=== PATIENT | female | born 1935 | race Caucasian/White ===

== ENCOUNTER 2019-11-21 09:52 | Outpatient (REF) | payer MEDICARE, SELFPAY ==
--- NOTE | 2019-11-21 10:15 | MR_ITS ---
MRI OF THE BRAIN WITHOUT IV CONTRAST INDICATION: Amnesia. COMPARISON: None available. TECHNIQUE: Multiplanar multisequence MR imaging of the brain was obtained without IV contrast. FINDINGS: There is no hydrocephalus, extra-axial surface collection, or herniation. 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 The major flow voids at the skull base are preserved. There is a 5 mm nodular possible flow void associated with the right anterior communicating artery on image 12 of series 8 for which a MRA of the head is recommended to exclude an aneurysm. There is no acute infarct on diffusion-weighted imaging. There is no intracranial hemorrhage on the gradient recalled echo acquisition. The midline structures are normal. The cerebellar tonsils are normally positioned. The cerebellum and brainstem are normal. The craniocervical junction is normal. Osseous marrow signal intensity is homogenous. The visualized soft tissues are unremarkable. There is mild mucosal thickening throughout the paranasal sinuses. IMPRESSION: - There is a 5 mm nodular possible flow void associated with the right anterior communicating artery on image 12 of series 8 for which a MRA of the head is recommended to exclude an aneurysm. - There is global cerebral volume loss and there is moderate chronic microangiopathy.
== END 2019-11-21 09:53 | disposition home or self-care (01) ==
LOC: HO.MRI 09:52
PROVIDERS: Visit Provider Psychiatry & Neurology Neurology
DX: R41.3 Other amnesia (principal); I10 Essential (primary) hypertension; I48.0 Paroxysmal atrial fibrillation; I49.5 Sick sinus syndrome; Z95.0 Presence of cardiac pacemaker; Z79.899 Other long term (current) drug therapy
CPT/HCPCS: 70551; 99214

== ENCOUNTER → 2020-02-20 09:10 | Outpatient (BNVA) | payer MEDICARE, SELFPAY | PROVIDERS: PCP Internal Medicine; Visit Provider Internal Medicine Cardiovascular Disease | DX: I48.0 Paroxysmal atrial fibrillation (principal); I10 Essential (primary) hypertension; Z45.018 Encounter for adjustment and management of other part of cardiac pacemaker; Z86.79 Personal history of other diseases of the circulatory system; Z79.01 Long term (current) use of anticoagulants; Z79.899 Other long term (current) drug therapy | CPT/HCPCS: 99212 ==

== ENCOUNTER 2020-02-29 08:56 | Outpatient (REF) | payer MEDICARE, SELFPAY ==
--- NOTE | 2020-02-29 09:08 | MM_ITS ---
EXAMINATION: MM SCREENING DIGITAL BREAST TOMOSYNTHESIS, BILATERAL CLINICAL INFORMATION: Screening. Asymptomatic. Right breast cancer post lumpectomy 2004. Family history breast cancer in sister. Due for yearly. COMPARISON: Mammography: 11/30/2018, 09/16/2017, 08/28/2016 TECHNIQUE: Digital breast tomosynthesis is performed in both the craniocaudal and mediolateral oblique views along with computer-aided detection (CAD). Synthesized 2D images are generated from the tomosynthesis. Additional left MLO view is provided. FINDINGS: The breasts are heterogeneously dense, which may obscure small masses (ACR BI-RADS breast composition Category c). There are post therapy changes on the right with some minor scarring and surgical clips. Pacemaker generator overlies and partly obscures left axilla. Neither breast shows interval mass or architectural abnormality or developing density. No suspicious calcifications. No significant changes. MM/MM tomosynthesis screening BI IMPRESSION: No mammographic evidence of malignancy. ASSESSMENT: BI-RADS 2: Benign RECOMMENDATION: Routine annual mammography screening. This patient's information was entered into a reminder system with a target due date for their next mammogram.
--- NOTE | 2020-02-29 09:09 | MM_ITS ---
EXAMINATION: BONE DENSITOMETRY CLINICAL INDICATION: Osteopenia. History of breast cancer. COMPARISON: Previous BD dated 08/28/2016 and baseline BD dated 10/12/2006. TECHNIQUE: Using a OpenSpan DXA System (software version: 13.1) manufactured by [employer], dual-energy x-ray absorptiometry was performed of the lumbar spine and left forearm radius 33%. The images are of good technical quality. Summary results are attached. FINDINGS: AP SPINE L1-L3 (excluding L4): The data of L1-L4 has been changed to exclude the L4 vertebral body, because lumbar curvature with degenerative changes at this level may cause overestimation of lumbar spine density. Current: BMD 1.007 g/cm2, Z-score 0.9, T-score -1.4, osteopenia, 3.9% decrease from previous, 1.5% decrease from baseline (<5% change is not significant). Prior: BMD 1.048 g/cm2. Baseline: BMD 1.022 g/cm2. LEFT FOREARM RADIUS 33%: BMD 0.697 g/cm2, Z-score 1.1, T-score -2.0, osteopenia. Prior: not previously measured. IDENTIFIED RISK FACTORS: Menopause, height loss, hysterectomy, osteoporosis, secondary osteoporosis. HISTORY OF FRACTURE: None listed. MEDICATIONS: Vitamin D. MM/XR DEXA axial skeleton IMPRESSION: 1. DIAGNOSIS: Osteopenia based on the lowest T-score value of -2.0 in the forearm radius 33% applying World Health Organization criteria. 2. 10-YEAR FRACTURE RISK PREDICTION, FRAX: Not performed in this patient without a femoral neck BMD measurement. 3. Treatment Recommendations: NOF guidelines recommend consideration for treatment in postmenopausal women and men age 50 and older presenting with the following: -A hip or vertebral (clinical or morphometric) fracture. -T-score less than or equal to -2.5 at the femoral neck or spine after appropriate evaluation to exclude secondary causes. -Low bone mass at the hip or spine and a 10-year fracture probability by FRAX of greater than or equal to 3% for hip fracture or greater than or equal to 20% for major osteoporotic fracture based on the [place] adapted WHO algorithm. 4. Other Recommendations: All treatment decisions require clinical judgment and consideration of individual patient factors, including patient preferences, comorbidities, previous drug use, risk factors not captured in the FRAX model (e.g. frailty, falls, vitamin D deficiency, increased bone turnover, interval significant decline in bone density) and possible under or overestimation of fracture risk by FRAX. Additional medical evaluation for secondary cause of low bone mineral density may be appropriate. FUTURE SCAN RECOMMENDATION: People with diagnosed cases of osteoporosis or at high risk for fracture should have regular bone mineral density tests. For patients eligible for Medicare, routine testing is allowed once every 2 years. The testing frequency can be increased to one year for patients who have rapidly progressing disease, those who are receiving or discontinuing medical therapy to restore bone mass, or have additional risk factors.
== END 2020-02-29 08:57 | disposition home or self-care (01) ==
LOC: HO.MAMMO 08:56
PROVIDERS: PCP Internal Medicine; Visit Provider Internal Medicine Medical Oncology
DX: Z12.31 Encounter for screening mammogram for malignant neoplasm of breast (principal); Z13.820 Encounter for screening for osteoporosis; M85.832 Other specified disorders of bone density and structure, left forearm; Z85.3 Personal history of malignant neoplasm of breast; Z80.3 Family history of malignant neoplasm of breast
CPT/HCPCS: 77063; 77067; 77080

== ENCOUNTER 2020-06-06 15:52 | Emergency (ER) | payer MEDICARE, SELFPAY ==
--- NOTE | ~2020-06-06 | CT_ITS ---
EXAMINATION: CT HEAD WITHOUT CONTRAST CT FACIAL BONES WITHOUT CONTRAST CT CERVICAL SPINE WITHOUT CONTRAST CLINICAL INFORMATION: Fall. COMPARISON: None available. TECHNIQUE: Imaging was performed from the skull base to vertex without intravenous administration of contrast. In addition, helical noncontrast CT imaging was acquired through the cervical spine and facial bones and source images were reviewed along with axial reconstructions and sagittal and coronal MPRs. This CT examination was performed using dose optimization techniques as appropriate, variously including the following: *Automated exposure control. *Adjustment of mA and/or kV according to patient size (this includes techniques or standardized protocols for targeted exams where dose is matched to indication/reason for exam; i.e. extremities or head). *Use of iterative reconstruction technique. DLP: 1110 mGy-cm FINDINGS: Head: There is no evidence of acute intracranial hemorrhage or edematous territorial infarction. Scattered hypoattenuation in the periventricular and deep white matter are consistent with moderate microangiopathy. Troncoso-white matter differentiation is preserved. Proportional prominence of the ventricles and sulcal spaces. No evidence for obstructive hydrocephalus. No abnormal mass effect or midline shift. No extra-axial fluid collections. Calcific atherosclerotic disease of the intracranial internal carotid and vertebral arteries. No hyperdense vessel sign. There appears to be a 0.5 cm outpouching arising from the superior margin of the right carotid terminus suggestive of a small aneurysm. There is also a nodular focus along the anterior communicating artery as previously demonstrated on brain MRI which may represent additional aneurysm. No acute soft tissue or osseous abnormalities. The mastoid air cells and middle ear cavities are clear. Maxillofacial Bones: No evidence of maxillofacial bone fractures. The zygomatic arches remain intact. No nasal bone fracture. Leftward nasal septal deviation. No evidence of mandibular or maxillary fracture. The mandibular condyles remain well-seated in their respective temporal articular grooves. Normal appearance of the intraconal and extraconal fat. No evidence of traumatic injury to the extraocular musculature or globes. Bilateral lens extractions. Mild to moderate mucosal thickening of the paranasal sinuses. No layering fluid collections. Cervical Spine: The atlantooccipital and atlantoaxial articulations remain well aligned. Mild degenerative anterolisthesis of C3 on C4. Otherwise, there is anatomic alignment of the vertebral bodies and posterior elements. No evidence of acute fracture or subluxation. Congenital nonunion of the posterior arch of C1. The vertebral body heights are maintained. Moderate to advanced degenerative disc disease at from C3-C6 with disc-osteophyte complex formation. Facet and uncovertebral joint arthropathy leads osseous encroachment on the neural foramina from C3-C7. There is no prevertebral soft tissue swelling. The thyroid gland and remaining cervical soft tissues are normal in appearance. The lung apices demonstrate no abnormalities. Left pectoral pacemaker. CT/CT cervical spine wo con IMPRESSION: 1. No evidence of acute intracranial hemorrhage or edematous territorial infarction. Moderate underlying microangiopathy. 2. No evidence of acute fracture or traumatic subluxation of the cervical spine. Moderate multilevel degenerative spinal arthropathy of the cervical spine. 3. No evidence of acute traumatic injury to the maxillofacial bones. 4. 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 These may be better characterized with MRA or CTA.
--- NOTE | ~2020-06-06 | XR_ITS ---
EXAMINATION: XR FOOT, LEFT CLINICAL INFORMATION: Fall with great toe pain COMPARISON: None TECHNIQUE: AP, lateral, and oblique views of the left foot. FINDINGS: Bones are normal anatomic alignment. I do not appreciate any definitive acute fracture or dislocation. Mild degenerative changes are noted but no acute bony destructive lesions or periosteal reaction. Tiny well-corticated ossification inferior to the first proximal phalanx less likely to be an acute finding. XR/XR foot LT 2V IMPRESSION: Degenerative changes but no acute fracture or dislocation appreciated.
[2020-06-06 16:33] VITALS: BP 175/81; PULSE 60; RESP 18; TEMP 36.7; O2SAT 94; BMI 19.9
--- NOTE | 2020-06-06 18:19 | ED_ITS ---
HPI - Fall General Chief Complaint: Fall Stated Complaint: Fall/face injury Time Seen by Provider: 06/06/20 18:19 Source: patient Mode of arrival: ambulatory Limitations: no limitations History of Present Illness HPI Narrative: Patient on Eliquis while trying to get of out of the car tripped and fell landed on the cement floor hitting her nose and upper teeth feel that left upper incisor has moved and chipped with small laceration in the inside of the lip, she had some minor bleeding from the nose which has stopped now no other injuries no loss of consciousness no vomiting no headache MD complaint: fall Related Data Home Medications Medication Instructions Recorded Confirmed conjugated estrogens 0.625 mg/gram 0.625 mg VAGINAL DAILY 11/19/19 03/30/20 vaginal cream flaxseed oil 1,000 mg capsule 1,000 mg PO DAILY 11/19/19 03/30/20 omega-3 fatty acids 1,000 mg 1,000 mg PO DAILY 11/19/19 03/30/20 capsule donepezil 10 mg tablet 10 mg PO BEDTIME 03/30/20 03/30/20 Previous Rx's Medication Instructions Recorded escitalopram oxalate 10 mg tablet 10 mg PO DAILY #60 tab 12/16/19 apixaban 2.5 mg tablet 2.5 mg PO BID 90 Days #180 tab 01/03/20 hydrochlorothiazide 25 mg tablet 25 mg PO DAILY #90 tab 01/05/20 metoprolol succinate 50 mg 50 mg PO DAILY #90 tab 04/19/20 tablet,extended release 24 hr Allergies Allergy/AdvReac Type Severity Reaction Status Date / Time No Known Allergies Allergy Verified 03/30/20 10:17 [No Known Allergies*] Review of Systems Review of Systems: Constitutional : No Weight loss, No Fever, No Chills ENT/Mouth : No sore throat, No Rhinorrhea Eyes: No Eye Pain, No Swelling Cardiovascular : No Chest Pain, no palpitations Respiratory : No Cough, No Sputum, no shortness of breath Gastrointestinal : no Nausea, No Vomiting, No Diarrhea, No abdominal Pain, no black stools Genitourinary : No Dysuria, No Urinary Frequency Musculoskeletal : No joint pain, No Myalgias, No Joint Swelling Skin : No Skin Lesions, No rash Neuro : No Weakness, No Numbness, No Dizziness, No Headache Psych : No Anxiety/Panic, No Depression Heme/Lymph: No Bruising, No Lymphadenopathy Endocrine : No Polyuria, No Polydipsia All other systems reviewed and are negative FOR[facility] Past Medical History Medical History Anxiety Basal cell carcinoma of right forearm (~2004) Breast cancer, right breast Cardiac pacemaker in situ Essential hypertension, benign Forgetfulness HTN (hypertension) Impaired fasting glucose Insufficiency fracture of right femur Memory impairment Obturator hernia with gangrene Osteoarthritis of left hip Paroxysmal atrial fibrillation Paroxysmal atrial fibrillation Pure hypercholesterolemia Sick sinus syndrome Sinus pause Squamous cell carcinoma of left lower leg (~02/2017) Vitamin D deficiency Surgical History History of hip surgery (~06/2013) History of lumpectomy of right breast (~08/2003) History of permanent cardiac pacemaker placement Hx of basal cell carcinoma excision (~2004) Hx of colonoscopy Hx of excision of mass Hx of hernia repair Hx of squamous cell carcinoma excision (~02/2017) Status post hip surgery (~05/14/16) Status post placement of cardiac pacemaker (~10/08/19) Family History Family History Father No problems noted. Mother CVD (cardiovascular disease) CHF (congestive heart failure) Hypertension Brother Bone cancer Diabetes Social History Social History Alcohol intake: current Alcohol intake frequency: does not drink Alcohol type: wine Smoking Status: Never smoker Use of substances other than those prescribed or required for medical reasons: No Advance Directives: No Advance Directives Information Provided: Yes Physical Exam Vital Signs: Vital Signs: Last Vital Signs Temp 97.7 F 06/06/20 21:11 Pulse 61 06/06/20 21:11 Resp 18 06/06/20 21:11 BP 179/80 H 06/06/20 21:11 Pulse Ox 95 06/06/20 21:11 Body Mass Index 19.9 Const: General: comfortable, no acute distress, well developed, alert and awake Orientation/consciousness: patient oriented x3 HENMT: Head: Yes normocephalic Head images: 1. Superficial abrasion with swelling involving the nose and upper lip superficial laceration inside of the upper lip Ears: hearing grossly normal bilaterally Nose image: 1. Superficial abrasion Mouth/tongue images: 1. Upper lateral incisor chipped moved forward and downward Eyes: General: appearance normal, both eyes and all related structures Neck: Neck: Yes normal visual inspection, Yes full ROM, Yes no lymphadenopathy and No midline deformity Chest: Chest palpation & inspection: normal inspection of the chest and normal palpation of entire chest wall Resp: Effort & Inspection: normal respiratory effort Auscultation: clear to auscultation bilaterally, no crackles, no rales, no rhonchi and no wheezes Cardio: Palpation: normal PMI Rate: regular rate Rhythm: regular rhythm Heart sounds: S1 normal heart sound present and S2 normal heart sound present Peripheral pulses: Peripheral pulses 2+ throughout GI: Inspection: Yes normal to inspection Palpation (GI): Soft to palpation, not firm and nontender Back/Spine/Pelvis: Cervical Spine: cervical ROM normal Thoracic/Lumbar Spine: No thoracic spinal tenderness and No lumbar spinal tenderness Neuro: General: patient oriented x3 and no focal motor deficits Extrem: General: Yes normal to inspection and Yes full ROM Hand/finger images: 1. Superficial abrasion MDM - Fall MDM Narrative Medical decision making narrative: Patient status post mechanical fall CT scan of the face head C-spine negative x-ray of left foot is negative for any fracture patient advised to follow-up with dentist for slight tooth pain avulsion Discharge Plan Discharge Clinical Impression: Head injury, closed Qualifiers: Encounter type: initial encounter Qualified Code(s): S09.90XA - Unspecified injury of head, initial encounter Contusion of face Qualifiers: Encounter type: initial encounter Qualified Code(s): S00.83XA - Contusion of other part of head, initial encounter Patient Disposition: Home, Self-Care Instructions: Facial Contusion (ED) Additional Instructions: Apply ice pack. Tylenol for pain. Follow-up with dentist for injury off the upper tooth Prescriptions: No Action escitalopram oxalate 10 mg tablet 10 mg PO DAILY Qty: 60 RF: 4 apixaban 2.5 mg tablet 2.5 mg PO BID 90 Days Qty: 180 RF: 3 hydrochlorothiazide 25 mg tablet 25 mg PO DAILY Qty: 90 RF: 1 metoprolol succinate 50 mg tablet extended release 24 hr 50 mg PO DAILY Qty: 90 RF: 3 donepezil 10 mg tablet 10 mg PO BEDTIME RF: 0 Premarin 0.625 mg/gram cream 0.625 mg vaginal DAILY RF: 0 flaxseed oil 1,000 mg capsule 1,000 mg PO DAILY RF: 0 omega-3 fatty acids [Fish Oil Concentrate] 1,000 mg capsule 1,000 mg PO DAILY RF: 0
[2020-06-06 18:27] VITALS: BP 206/83; PULSE 60; RESP 18; TEMP 36.8; O2SAT 98
[2020-06-06] MEDS: oxyCODONE HCl Immed Release 5 MG TABLET PO (19:25)
[2020-06-06 20:00] VITALS: BP 217/89; PULSE 88; RESP 18; O2SAT 98
[2020-06-06 21:11] VITALS: BP 179/80; PULSE 61; RESP 18; TEMP 36.5; O2SAT 95
== END 2020-06-06 20:30 | disposition home or self-care (01) ==
PROVIDERS: Emergency Provider Internal Medicine; PCP Internal Medicine
DX: S00.83XA Contusion of other part of head, initial encounter (principal); M79.672 Pain in left foot; M54.2 Cervicalgia; G44.309 Post-traumatic headache, unspecified, not intractable; W01.0XXA Fall on same level from slipping, tripping and stumbling without subsequent striking against object, initial encounter; Y93.9 Activity, unspecified; Y92.9 Unspecified place or not applicable; Y99.9 Unspecified external cause status; Z79.899 Other long term (current) drug therapy
CPT/HCPCS: 70450; 70486; 72125; 73620; 99285

== ENCOUNTER → 2020-08-16 08:03 | Outpatient (REF) | payer MEDICARE, SELFPAY ==
--- NOTE | ~2020-08-16 | NM_ITS ---
Myocardial perfusion study Indication: Paroxysmal atrial fibrillation with ventricles echocardiogram to evaluate for myocardial ischemia Technique: The patient was brought in for a Lexiscan perfusion study on 08/16/2020. Patient performed low-level exercise and was injected 0.4 mg of Lexiscan intravenously. Within a minute of injection, 25 mCi of sestamibi was given intravenously. Images were obtained using the SPECT gamma camera interlaced with the gating device. Images were obtained in supine position. Resting perfusion study was performed on 08/21/2020. Patient was administered 25 mCi of sestamibi intravenously at rest. Images were then obtained in supine position. Images obtained with and without CT attenuation. Total DLP 72 mGy-cm. Images were processed with the software and compared side to side in short axis, horizontal long axis and vertical long axis views. Findings: The stress perfusion study showed nonattenuated images show normal uptake of radiotracer in all segments of LV myocardium. Attenuation corrected images show mildly reduced uptake in the apex of the LV myocardium. The gated study shows normal LV systolic function with calculated LVEF of 69%. LV cavity is normal in size. The gated study shows normal systolic wall thickening and contraction of segments. Resting study shows nonattenuated images show minimally reduced uptake in the inferior wall of the LV myocardium. Attenuation corrected images show mildly reduced uptake in the apex of the LV myocardium.. Gating at rest reveals normal systolic wall motion with ejection fraction at greater than 70 %. The findings are consistent with normal myocardial perfusion. NM/NM joseline perf SPECT rest & str Impression: 1. Myocardial perfusion imaging study shows normal myocardial perfusion 2. Gated LVEF is 69% 3. Transient ischemic dilatation not present EKG is nondiagnostic for ischemia
--- NOTE | 2020-08-16 11:34 | CA_ITS ---
Acquisition Time: 2020-08-16 09:49:53 Total Exercise Time: 00:02:00 Test Indications: Abnormal ECG Medications: ELIQUIS ESCITALOPRAM HCTZ METOPROLOL Protocol: LEXISCAN Max HR: 134 BPM 99% of Pred: 135 BPM Max BP: 124/078 mmHG Max Work Load: 1.0 METS Pharmacological stress test with Lexiscan injection, while laying supine, without anginal symptoms, with isolated V paced beats, with normotensive response to injection, with nondiagnostic EKG for ischemia. In recovery she was given Aminophylline 75mg IVP to reverse Lexiscan. Nuclear images pending. Test reviewed with Dr Lay. Referred By: Uzma Hoyos Overread By: UZMA HOYOS
--- NOTE | 2020-08-16 11:46 | CA_ITS ---
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 Normal LV systolic function 2. Mildly dilated left atrium 3. Moderate mitral and calcification with normal cardiac valvular Doppler 4. Normal RV systolic pressure 5. No pericardial effusion Findings Left Ventricle Normal left ventricular size, thickness, and systolic function. The visually estimated ejection fraction is between 60-65%. Diastolic function is indeterminate on the basis of available data. Right Ventricle Normal right ventricular cavity size and systolic function. Atria The left atrium is mildly dilated. There is lipomatous hypertrophy of the interatrial septum. There is no evidence of interatrial shunt. The right atrium is normal in size. Aortic Valve Normal aortic valve structure and function. There is no aortic valve stenosis. There is no aortic valve regurgitation. Mitral Valve There is mild anterior mitral leaflet thickening. There is moderate mitral annular calcification. There is trace mitral valve regurgitation. There is no mitral valve stenosis. Pulmonic Valve The pulmonic valve was not well visualized. Tricuspid Valve Likely normal tricuspid valve structure and function. There is trace tricuspid valve regurgitation. The right ventricular systolic pressure is normal. The right ventricular systolic pressure is 30 mmHg. Normal right atrial pressure. There is no evidence of pulmonary hypertension. Great Vessels All visible segments of the aorta are normal in size. Venous The inferior vena cava is normal in size and collapses greater than 50% with inspiration. Pericardium/Pleural There is no evidence of pericardial effusion. Prior Study Comparison No significant change compared to prior study. Measurements 2D Linear Measurements IVSd: 0.97 0.6-0.9/0.6-1.0 cm LVIDd: 3.44 3.9-5.3/4.2-5.9 cm LVIDd Index: 2.21 2.4-3.2/2.2-3.1 cm/m2 LVIDs: 2.13 2.0-3.6 cm LVPWd: 0.92 0.7-1.1 cm Ao Root: 3.20 2.1-3.5 cm LA Diam: 3.90 2.7-3.8/3.0-4.0 cm LAIDs Index: 2.50 1.5-2.3 cm/m2 LV Mass: 115.50 67-162/88-224 g LV Mass Index: 74.04 43-95/49-115 g/m2 LVOT Diam: 2.00 3.0+(-)1.3 cm Aortic Valve AoV Pk Rony: 1.00 AoV Mn Rony: 0.77 AoV VTI: 0.20 AoV Pk Grad: 4.00 Aov Mn Grad: 3.00 JOHNNIE Cont.VTI: 2.68 LVOT LVOT Pk Rony: 0.83 LVOT Mn Rony: 0.58 LVOT VTI: 0.17 LVOT Pk Grad: 3.00 LVOT Mn Grad: 2.00 LVOT Diam: 2.00 LVOT Area: 3.14 Tricuspid Valve TR Pk Rony: 2.32 TR Pk Grad: 22.00 RA Press: 8.00 RVSP: 30.00 Great Vessels Aorta Ao Root-2D: 3.20 2.0-3.7 cm Ao Asc: 3.20 2.1-3.4 cm Ao Arch: 2.10 Updated in Other Vendor System with Status of Final Caesar Lay MD electronically signed on 08/17/2020 2:48:50 PM with status of Final
== END ==
LOC: HO.CARD 08:03
PROVIDERS: Visit Provider Nurse Practitioner Family
DX: Z01.810 Encounter for preprocedural cardiovascular examination (principal); I47.2 Ventricular tachycardia; I48.0 Paroxysmal atrial fibrillation; R68.89 Other general symptoms and signs
CPT/HCPCS: 78452; 93017; 93306; A9500; J0280; J2785

== ENCOUNTER → 2020-08-30 14:16 | Outpatient (BNVA) | payer MEDICARE, SELFPAY | PROVIDERS: PCP Internal Medicine; Referring Provider Internal Medicine; Visit Provider Internal Medicine Cardiovascular Disease | DX: I48.0 Paroxysmal atrial fibrillation (principal); I47.2 Ventricular tachycardia; Z95.0 Presence of cardiac pacemaker; Z79.899 Other long term (current) drug therapy | CPT/HCPCS: 99212 ==

== ENCOUNTER 2021-01-31 12:11 | Outpatient (REF) | payer MEDICARE, SELFPAY ==
--- NOTE | ~2021-01-31 | XR_ITS ---
EXAMINATION: XR PELVIS CLINICAL INFORMATION: Pain in unspecified hip. COMPARISON: XR pelvis and right hip 07/28/2019. TECHNIQUE: AP and low AP views of the pelvis. FINDINGS: There is a stable-appearing left total hip arthroplasty which appears well-seated in near-anatomic alignment. Severe advanced osteoarthritis of the right hip may have progressed slightly with subtle flattening/collapse of the superolateral weightbearing portion of the right femoral head. There are persistent prominent subchondral degenerative cysts in the superior acetabulum and superolateral right femoral head with surrounding sclerosis and marginal osteophytes. XR/XR pelvis 1-2V IMPRESSION: Stable-appearing left total hip arthroplasty. Slight worsening severe advanced osteoarthritis of the right hip.
== END 2021-01-31 12:12 | disposition home or self-care (01) ==
LOC: HO.HOSX 12:11
PROVIDERS: Visit Provider Orthopaedic Surgery
DX: M25.551 Pain in right hip (principal); M87.9 Osteonecrosis, unspecified; R73.01 Impaired fasting glucose; R41.3 Other amnesia; Z96.642 Presence of left artificial hip joint; Z95.0 Presence of cardiac pacemaker
CPT/HCPCS: 72170; 99212

== ENCOUNTER → 2021-02-26 09:31 | Outpatient (BNVA) | payer MEDICARE, SELFPAY | PROVIDERS: PCP Internal Medicine; Referring Provider Internal Medicine; Visit Provider Internal Medicine Cardiovascular Disease | DX: Z45.018 Encounter for adjustment and management of other part of cardiac pacemaker (principal); I48.0 Paroxysmal atrial fibrillation | CPT/HCPCS: 93005; 99212 ==

== ENCOUNTER 2021-02-26 10:38 | Outpatient (REF) | payer MEDICARE, SELFPAY ==
[2021-02-26 11:11] LABS: MANUAL DIFF FLAG NO
[2021-02-26 11:31] LABS: Basophils Percent Auto 0.4 % (0-2); Eosinophils Absolute Auto 0.1 X10*3/uL (0.0-0.4); Eosinophils Percent Auto 0.7 % (0-4); Hematocrit 41.1 % (37.0-47.0); Hemoglobin 13.7 g/dl (12.0-16.0); Imm Gran Abs Auto 0.02 X10*3/uL (0.00-0.03); Imm Gran Pct Auto 0.3 % (0.0-0.4); Lymphocytes Absolute Auto 0.9 X10*3/uL (1.2-4.9); Lymphocytes Percent Auto 11.6 % (20-40); Mean Corpuscular HGB Conc 33.3 g/dl (31.0-35.0); Mean Corpuscular Hemoglobin 35.6 pg (27.0-33.0); Mean Corpuscular Volume 106.8 fL (80.0-98.0); Mean Platelet Volume 10.3 fL (9.4-12.3); Monocytes Absolute Auto 0.6 X10*3/uL (0.1-1.2); Monocytes Percent Auto 8.2 % (2-11); Neutrophils Absolute Auto 5.8 x10*3/uL (2.0-8.3); Neutrophils Percent Auto 78.8 % (45-73); Platelet Count 220 X10*3/uL (160-400); Red Blood Count 3.85 X10*6/uL (4.20-5.50); Red Cell Distribution Width 12.2 % (11.0-16.0); White Blood Count 7.4 X10*3/uL (4.8-10.8)
[2021-02-26 11:33] LABS: Appearance Urine CLEAR; Color Urine YELLOW; Glucose Urine UA NEG (NEG); Leukocyte Esterase Urine 1+ (NEG); Nitrite Urine POS (NEG); Specific Gravity - Urine 1.025 (1.005-1.025); UACC Culture Trigger YES; Urine Blood TRACE (NEG); Urine Ketones 5 MG/DL (NEG); Urine Protein 1+ MG/DL (NEG-TRACE)
[2021-02-26 11:38] LABS: Estimated Average Glucose 114 mg/dL; Hemoglobin A1c % 5.6 %
[2021-02-26 11:48] LABS: Bacteria Urine 2+ /LPF; Mucus Urine 2+ /LPF; RBC Urine 0 /HPF (0); Squamous Epithelial Cell Urine 2+ /LPF; WBC Urine 50-75 /HPF (0-4)
[2021-02-26 12:02] LABS: Alanine Aminotransferase 21 U/L (0-31); Albumin Level 3.8 g/dL (3.5-5.0); Alkaline Phosphatase 108 U/L (39-117); Anion Gap 11 (12-20); Aspartate Amino Transferase 31 U/L (5-31); Bilirubin Total 1.2 mg/dL (0.0-1.0); Blood Urea Nitrogen 19 mg/dL (9-16); Carbon Dioxide 30 mmol/L (22-29); Chloride 101 mmol/L (96-108); Cholesterol 209 mg/dL; Estimated Glomerular Filt Rate 56; Glucose Fasting 110 mg/dL (60-99); HDL Cholesterol 86 mg/dL; LDL Cholesterol Calculated 98 mg/dl; Potassium 3.6 mmol/L (3.3-5.1); Sodium 138 mmol/L (135-145); Total Protein 6.8 g/dL (6.5-8.0); Triglycerides 127 mg/dL
[2021-02-26 12:24] LABS: Vitamin D 25-OH Total 33.6 ng/mL (>30)
== END 2021-02-26 10:39 | disposition home or self-care (01) ==
LOC: HO.LAB 10:38
PROVIDERS: PCP Internal Medicine; Visit Provider Internal Medicine Cardiovascular Disease
DX: E78.00 Pure hypercholesterolemia, unspecified (principal); E55.9 Vitamin D deficiency, unspecified; I10 Essential (primary) hypertension; I48.0 Paroxysmal atrial fibrillation; R73.01 Impaired fasting glucose
CPT/HCPCS: 36415; 80048; 80053; 80061; 81001; 82306; 83036; 84443; 85025; 87086; 87088; 87186

== ENCOUNTER 2021-03-17 15:20 | Emergency (ER) | payer MEDICARE, SELFPAY ==
[2021-03-17 15:50] VITALS: BP 166/77; PULSE 61; RESP 18; TEMP 36.7; O2SAT 96; BMI 21.2
--- NOTE | 2021-03-17 17:17 | ED_ITS ---
HPI - Eye Problem General Chief complaint: Eye Problems Stated complaint: not able to open eye Time Seen by Provider: 03/17/21 17:14 Source: patient and family Mode of arrival: ambulatory Limitations: no limitations History of Present Illness HPI Narrative: Patient is status post cataract surgery in 05/06 was doing fine since yesterday noticed blurred vision had difficulty in opening her eyes feel burning in the eye no discharge from the eye no injury Related Data Home Medications Medication Instructions Recorded Confirmed flaxseed oil 1,000 mg capsule 1,000 mg PO DAILY 11/19/19 02/26/21 omega-3 fatty acids 1,000 mg 1,000 mg PO DAILY 11/19/19 02/26/21 capsule (Fish Oil Concentrate) cholecalciferol (vitamin D3) 50 50 mcg PO Q2D cap 07/17/20 02/26/21 mcg (2,000 unit) capsule donepezil 10 mg tablet 10 mg PO BEDTIME 08/30/20 02/26/21 escitalopram oxalate 10 mg tablet 10 mg PO DAILY tab 02/26/21 02/26/21 Previous Rx's Medication Instructions Recorded hydrochlorothiazide 25 mg tablet 25 mg PO DAILY 90 Days #90 tab 06/22/20 metoprolol succinate 100 mg 150 mg PO DAILY #135 tab 10/12/20 tablet,extended release 24 hr apixaban 2.5 mg tablet 2.5 mg PO BID 90 Days #180 tab 10/31/20 tobramycin 0.3 % eye drops 2 drp OPHTHALMIC-RIGHT Q4H #5 ml 03/17/21 Allergies Allergy/AdvReac Type Severity Reaction Status Date / Time No Known Allergies Allergy Verified 03/17/21 15:50 [No Known Allergies*] Review of Systems Verdana 4l Review of Systems: Yes all other systems are reviewed and Verdana 4d are negative [facility] Past Medical History Medical History Anxiety Basal cell carcinoma of right forearm (~2004) Breast cancer, right breast Cardiac pacemaker in situ Essential hypertension, benign Forgetfulness HTN (hypertension) Impaired fasting glucose Insufficiency fracture of right femur Memory impairment Nail atrophy Obturator hernia with gangrene Osteoarthritis of left hip Paroxysmal atrial fibrillation Paroxysmal atrial fibrillation Pure hypercholesterolemia Sick sinus syndrome Sinus pause Squamous cell carcinoma of left lower leg (~02/2017) Vitamin D deficiency Surgical History History of hip surgery (~06/2013) History of lumpectomy of right breast (~08/2003) History of permanent cardiac pacemaker placement Hx of basal cell carcinoma excision (~2004) Hx of colonoscopy Hx of excision of mass Hx of hernia repair Hx of squamous cell carcinoma excision (~02/2017) Status post hip surgery (~05/14/16) Status post placement of cardiac pacemaker (~10/08/19) Family History Family History Father No problems noted. Mother CVD (cardiovascular disease) CHF (congestive heart failure) Hypertension Brother Bone cancer Diabetes Social History Social History Housing: House Alcohol intake: current Alcohol intake frequency: does not drink Alcohol type: wine Patient Tobacco Use Status: Never used Tobacco Second Hand Smoke Exposure: Yes Use of substances other than those prescribed or required for medical reasons: No Advance Directives: No Advance Directives Information Provided: No service: No Current occupational status: retired Physical Exam Verdana 4l Vital Signs: Verdana 4d Verdana 4d Vital Signs: Verdana 4d Verdana 4Bd Last Vital Signs Verdana 4d Wide Area Network Administrator New 4d Wide Area Network Administrator New 4d Temp 98.5 F 03/17/21 18:24 Wide Area Network Administrator New 4d Pulse 60 03/17/21 18:24 Wide Area Network Administrator New 4d Resp 16 03/17/21 18:24 BP 178/71 H 03/17/21 18:24 Pulse Ox 94 03/17/21 18:24 BMI result Body Mass Index 21.2 Appearance: Alert. Oriented X3. No acute distress. Eyes: PERRLA, photosensitive EOM ENT: Pharynx normal. Oral Mucosa moist Neck: Normal inspection. Neck supple. CVS: Normal heart rate and rhythm. Pulses normal. Respiratory: No respiratory distress. Equal air entry bilateral, Abdomen: Soft and nontender. Skin: Skin warm and dry. Normal skin color. Normal skin turgor. Extremities: No lower extremity edema. No calf tenderness Neuro: Oriented X 3. No motor deficit. Eyes: Corneas: fluorescein used EOM: EOMs intact bilaterally Direct Ophthalmoscopy: normal light reflex, no papilledema, fundi normal bilaterally and anterior chamber normal Eyes/upper lids images: 1. Corneal abrasion right cornea Discharge Plan Discharge Clinical Impression: Corneal abrasion Patient Disposition: Home, Self-Care Instructions: Corneal Abrasion (ED) Additional Instructions: Local care as advised Tobramycin eye drops 2 drops in right eye every 4 hours while awake until gets better Follow-up with your eye doctor in next 2- 3 days Prescriptions: New tobramycin 0.3 % drops 2 drp ophthalmic-Right Q4H Qty: 5 0RF No Action metoprolol succinate 100 mg tablet extended release 24 hr 150 mg PO DAILY Qty: 135 1RF apixaban 2.5 mg tablet 2.5 mg PO BID 90 Days Qty: 180 3RF cholecalciferol (vitamin D3) 50 mcg (2,000 unit) capsule 50 mcg PO Q2D 0RF donepezil 10 mg tablet 10 mg PO BEDTIME 0RF hydrochlorothiazide 25 mg tablet 25 mg PO DAILY 90 Days Qty: 90 1RF flaxseed oil 1,000 mg capsule 1,000 mg PO DAILY 0RF Rx Instructions: administer with a meal omega-3 fatty acids [Fish Oil Concentrate] 1,000 mg capsule 1,000 mg PO DAILY 0RF escitalopram oxalate 10 mg tablet 10 mg PO DAILY 0RF Interventions: ED Discharge Assessment Last Done: 03/17/21 18:34 Discharge Date/Time: 03/17/21 18:35
[2021-03-17 18:24] VITALS: BP 178/71; PULSE 60; RESP 16; TEMP 36.9; O2SAT 94
[2021-03-17] MEDS: Tobramycin Sulfate 0.3% Sol Op 5 ML BTL 2 DROP EYE-RIGHT (18:26)
== END 2021-03-17 18:35 | disposition home or self-care (01) ==
PROVIDERS: Emergency Provider Internal Medicine; PCP Internal Medicine
DX: S05.01XA Injury of conjunctiva and corneal abrasion without foreign body, right eye, initial encounter (principal); H53.8 Other visual disturbances; X58.XXXA Exposure to other specified factors, initial encounter; Y93.9 Activity, unspecified; Y92.9 Unspecified place or not applicable; Y99.9 Unspecified external cause status; Z79.899 Other long term (current) drug therapy
CPT/HCPCS: 99284

== ENCOUNTER → 2021-03-27 08:57 | Outpatient (BNVA) | payer MEDICARE, SELFPAY | PROVIDERS: Visit Provider Orthopaedic Surgery | DX: Z13.89 Encounter for screening for other disorder (principal) ==

== ENCOUNTER 2021-04-10 | Outpatient (REF) | payer MEDICARE, SELFPAY ==
[2021-04-10 12:18] VITALS: BMI 21.8
[2021-04-10 12:27] VITALS: BP 144/61; PULSE 82; RESP 20; O2SAT 98
--- NOTE | 2021-04-10 12:36 | P.CONAN_ITS ---
HPI - Anesthesia Eval Consult details Narrative: Cx'd by ortho for non healing RLE wound 85yo F for Right Hip Total Replacement Eliquis for afib Pacer in situ Cardiac optimized Pt with mild dementia. Alert and oriented. 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 (Acute) Preoperative examination (Acute) Nail atrophy (Acute) Cardiac pacemaker in situ (Acute) Memory impairment (Acute) Sick sinus syndrome (Acute) Anxiety (Acute) Osteoarthritis of left hip (Acute) Vitamin D deficiency (Acute) Impaired fasting glucose (Acute) Pure hypercholesterolemia (Acute) Essential hypertension, benign (Acute) Paroxysmal atrial fibrillation (Acute) Forgetfulness (Acute) Paroxysmal atrial fibrillation (Acute) Status post placement of cardiac pacemaker (Acute ~10/08/19) Sinus pause (Acute) HTN (hypertension) (Acute) Past Medical History Medical History (Updated 04/11/21 @ 15:51 by Berta Dunn PA-C) Anxiety Basal cell carcinoma of right forearm (~2004) Breast cancer, right breast Cardiac pacemaker in situ COVID-19 vaccine series completed Essential hypertension, benign Forgetfulness [place] (hard of hearing) HTN (hypertension) Impaired fasting glucose Insufficiency fracture of right femur Memory impairment Nail atrophy Obturator hernia with gangrene Osteoarthritis of left hip Paroxysmal atrial fibrillation Paroxysmal atrial fibrillation Pure hypercholesterolemia Sick sinus syndrome Sinus pause Squamous cell carcinoma of left lower leg (~02/2017) Vitamin D deficiency Family History Family History Father No problems noted. Mother CVD (cardiovascular disease) CHF (congestive heart failure) Hypertension Brother Bone cancer Diabetes Family history of problems with anesthesia: No Surgical History Surgical History (Updated 04/10/21 @ 12:12 by Sophia Khan, GABRIELLA) H/O colonoscopy History of hip surgery (~06/2013) History of lumpectomy of right breast (~08/2003) History of permanent cardiac pacemaker placement Hx of basal cell carcinoma excision (~2004) Hx of excision of mass Hx of hernia repair Hx of squamous cell carcinoma excision (~02/2017) Status post hip surgery (~05/14/16) Status post placement of cardiac pacemaker (~10/08/19) History of Problems with Anesthesia: No Social History Social History Housing: House Are you a primary skin care technician to a significant other at home: No Do you presently have visiting nurse or other home services: No Alcohol intake: current Alcohol intake frequency: does not drink Alcohol type: wine Patient Tobacco Use Status: Never used Tobacco Second Hand Smoke Exposure: Yes service: No Current occupational status: retired Narrative Narrative: No recent illness No CP/SOB within limits of pain Meds Allergies Allergy/AdvReac Type Severity Reaction Status Date / Time No Known Allergies Allergy Verified 04/18/21 14:18 [No Known Allergies*] Home Medications Medication Instructions Recorded Confirmed Last Taken Type flaxseed oil 1,000 mg capsule 1,000 mg PO DAILY 11/19/19 04/18/21 Unknown History omega-3 fatty acids 1,000 mg 1,000 mg PO DAILY 11/19/19 04/18/21 Unknown History capsule (Fish Oil Concentrate) cholecalciferol (vitamin D3) 50 50 mcg PO Q2D cap 07/17/20 04/18/21 Unknown History mcg (2,000 unit) capsule donepezil 10 mg tablet 10 mg PO BEDTIME 08/30/20 04/18/21 Unknown History escitalopram oxalate 10 mg tablet 10 mg PO DAILY tab 02/26/21 04/18/21 Unknown History metoprolol succinate 100 mg 50 mg PO BEDTIME 04/10/21 04/18/21 Unknown History tablet,extended release 24 hr metoprolol succinate 100 mg 100 mg PO QAM 04/10/21 04/18/21 Unknown History tablet,extended release 24 hr Exam Exam Date and Time: April 10, 2021 1236 Height,Weight and Vital Signs: Height 5 ft 4 in Weight 57.7 kg Last Vital Signs Pulse 82 04/10/21 12:27 Resp 20 04/10/21 12:27 BP 144/61 H 04/10/21 12:27 Pulse Ox 98 04/10/21 12:27 Narrative Narrative: EKG 02/2021 normal sinus rhythm with bifascicular block with suggestion of LVH Cardiac Device Check 02/2021 Details: Dual-chamber [employer] pacemaker in place.? Programmed in DDDR at 60 beats per minute.? Atrial pacing 87% of the time.? Total burden of atrial fibrillation about 11% time, slightly increased compared to the past.? Atrial and ventricular pacing thresholds are adequate and in our capture mode.? Atrial ventricular sensing is adequate.? Pacing lead impedance is stable.? Battery life is excellent. ECHO 08/2020 Conclusions: - 1. Normal LV systolic function ? 2. Mildly dilated left atrium? 3. Moderate mitral and calcification with normal cardiac valvular Doppler? 4. Normal RV systolic pressure ? 5. No pericardial effusion ?? NM joseline perf SPECT rest & str 08/2020 Impression: ? 1.? Myocardial perfusion imaging study shows normal myocardial perfusion 2.? Gated LVEF is 69% 3. Transient ischemic dilatation not present ? EKG is nondiagnostic for ischemia Airway Mallampati Class: II (Noted black discoloration on tongue. Asymptomatic otherwise.) TM Dist: >3cm Neck ROM: Full Loose/Missing/Broken Teeth: Yes (Some missing, none loose or broken) Heart: Irreg Lungs: CTAB Assessment and Plan Assessment Anesthesia Assessment: Anesthesia Plan Discussed and PAT Visit Final Anesthetic Review Family History of Problems with Anesthesia: No History of Problems with Anesthesia: No
[2021-04-10 13:41] LABS: MANUAL DIFF FLAG NO
[2021-04-10 14:43] LABS: MRSA Nasal PCR NEGATIVE (Negative); SA Nasal PCR NEGATIVE (Negative)
[2021-04-10 14:59] LABS: Basophils Percent Auto 0.5 % (0-2); Eosinophils Absolute Auto 0.1 X10*3/uL (0.0-0.4); Eosinophils Percent Auto 0.8 % (0-4); Hematocrit 42.8 % (37.0-47.0); Hemoglobin 14.2 g/dl (12.0-16.0); Imm Gran Abs Auto 0.02 X10*3/uL (0.00-0.03); Imm Gran Pct Auto 0.3 % (0.0-0.4); Lymphocytes Absolute Auto 1.2 X10*3/uL (1.2-4.9); Lymphocytes Percent Auto 15.6 % (20-40); Mean Corpuscular HGB Conc 33.2 g/dl (31.0-35.0); Mean Corpuscular Hemoglobin 36.1 pg (27.0-33.0); Mean Corpuscular Volume 108.9 fL (80.0-98.0); Mean Platelet Volume 10.9 fL (9.4-12.3); Monocytes Absolute Auto 0.7 X10*3/uL (0.1-1.2); Monocytes Percent Auto 9.7 % (2-11); Neutrophils Absolute Auto 5.5 x10*3/uL (2.0-8.3); Neutrophils Percent Auto 73.1 % (45-73); Platelet Count 262 X10*3/uL (160-400); Red Blood Count 3.93 X10*6/uL (4.20-5.50); Red Cell Distribution Width 12.4 % (11.0-16.0); White Blood Count 7.6 X10*3/uL (4.8-10.8)
[2021-04-10 15:21] LABS: Anion Gap 16 (12-20); Blood Urea Nitrogen 21 mg/dL (9-16); Carbon Dioxide 29 mmol/L (22-29); Chloride 100 mmol/L (96-108); Creatinine Clr Calc Pharmacy 31.6; Estimated Glomerular Filt Rate 47; Potassium 4.1 mmol/L (3.3-5.1); Sodium 141 mmol/L (135-145)
== END 2021-04-10 00:01 ==
LOC: HO.PAT
PROVIDERS: Physician Assistant; PCP Internal Medicine; Visit Provider Orthopaedic Surgery
DX: Z01.818 Encounter for other preprocedural examination (principal); M16.11 Unilateral primary osteoarthritis, right hip
CPT/HCPCS: 36415; 80051; 82565; 84520; 85025; 86850; 86900; 86901; 87640; 87641

== ENCOUNTER → 2021-04-11 11:01 | Outpatient (BNVA) | payer MEDICARE, SELFPAY | PROVIDERS: PCP Internal Medicine; Visit Provider Physician Assistant | DX: S80.811A Abrasion, right lower leg, initial encounter (principal) | CPT/HCPCS: 99212 ==

== ENCOUNTER → 2021-04-18 14:04 | Outpatient (BNVA) | payer MEDICARE, SELFPAY | PROVIDERS: PCP Internal Medicine; Visit Provider Physician Assistant | DX: S80.811D Abrasion, right lower leg, subsequent encounter (principal); X58.XXXD Exposure to other specified factors, subsequent encounter; M16.12 Unilateral primary osteoarthritis, left hip; I10 Essential (primary) hypertension; E78.00 Pure hypercholesterolemia, unspecified; Z95.0 Presence of cardiac pacemaker; Z79.899 Other long term (current) drug therapy | CPT/HCPCS: 99212 ==

== ENCOUNTER 2021-04-22 14:08 | Outpatient (RCR) | payer MEDICARE, SELFPAY | END 2021-09-11 16:24 | disposition home or self-care (01) | LOC: HO.WCC 14:08 | PROVIDERS: PCP Internal Medicine; Visit Provider Physician Assistant | DX: I87.313 Chronic venous hypertension (idiopathic) with ulcer of bilateral lower extremity (principal); L97.812 Non-pressure chronic ulcer of other part of right lower leg with fat layer exposed; L97.822 Non-pressure chronic ulcer of other part of left lower leg with fat layer exposed; I48.0 Paroxysmal atrial fibrillation | CPT/HCPCS: 11042; 11104; 88305; 88312; 97597; 99212; 99213 ==

== ENCOUNTER → 2021-05-02 09:33 | Outpatient (BNVA) | payer MEDICARE, SELFPAY | PROVIDERS: PCP Internal Medicine; Visit Provider Orthopaedic Surgery | DX: Z48.00 Encounter for change or removal of nonsurgical wound dressing (principal); S80.921D Unspecified superficial injury of right lower leg, subsequent encounter; M87.9 Osteonecrosis, unspecified; R41.3 Other amnesia | CPT/HCPCS: 99212 ==

== ENCOUNTER → 2021-05-16 09:11 | Outpatient (BNVA) | payer MEDICARE, SELFPAY | PROVIDERS: PCP Internal Medicine; Visit Provider Orthopaedic Surgery | DX: Z13.89 Encounter for screening for other disorder (principal) ==

== ENCOUNTER → 2021-09-03 09:53 | Outpatient (BNVA) | payer MEDICARE, SELFPAY | PROVIDERS: PCP Internal Medicine; Referring Provider Internal Medicine; Visit Provider Internal Medicine Cardiovascular Disease | DX: I25.10 Atherosclerotic heart disease of native coronary artery without angina pectoris (principal); I48.0 Paroxysmal atrial fibrillation; Z45.018 Encounter for adjustment and management of other part of cardiac pacemaker | CPT/HCPCS: 93280; 99212 ==

== ENCOUNTER 2021-09-17 09:57 | Outpatient (REF) | payer MEDICARE, SELFPAY ==
--- NOTE | ~2021-09-17 | FL_ITS ---
PROCEDURE: FL BARIUM SWALLOW CLINICAL INFORMATION: Dysphagia. COMPARISON: None TECHNIQUE: Barium swallow examination is performed using fluoroscopic evaluation in addition to multiple fluoroscopic spot views. The patient is imaged both upright and prone and using both thick and thin sulfate along with effervescent granules. Fluoroscopy time: 2.3 minutes DAP: 9.4 Gycm2 Images: 32 FINDINGS: Following oral administration of thin barium and barium-coated turkey there is normal propagation of bolus from the oral cavity through the pharynx into esophagus. There is significant delay in the transit through the esophagus secondary to tertiary peristalsis. There is moderate holdup of the entire thick barium and barium-coated turkey in the mid to distal esophagus due to significant abnormal peristalsis. The GE junction transiently opens with increasing esophageal dilation and pressure. FL/FL barium swallow IMPRESSION: Findings consistent with presbyesophagus. No intraluminal mass or extrinsic compression seen. Patent GE junction.
== END 2021-09-17 09:58 | disposition home or self-care (01) ==
LOC: HO.XRAY 09:57
PROVIDERS: PCP Internal Medicine; Visit Provider Internal Medicine
DX: R13.10 Dysphagia, unspecified (principal)
CPT/HCPCS: 74220

== ENCOUNTER 2021-10-24 09:43 | Outpatient (REF) | payer MEDICARE, SELFPAY ==
--- NOTE | ~2021-10-24 | US_ITS ---
EXAMINATION: BILATERAL LOWER EXTREMITY arterial DUPLEX. CLINICAL INFORMATION: Atherosclerotic disease COMPARISON: None TECHNIQUE: Bilateral duplex Doppler techniques with wave form analysis and measurement of velocities in the common femoral, profunda femoral, superficial femoral, popliteal, tibial and peroneal arteries. The study was performed only at rest. FINDINGS: RIGHT LEG Common femoral artery: 108 cm/s, Multiphasic Profunda femoris artery: 44 cm/s, Multiphasic Superficial femoral artery (proximal): 101 cm/s, Multiphasic Superficial femoral artery (mid): 81 cm/s, Multiphasic Superficial femoral artery (distal): 58 cm/s, Multiphasic Proximal Popliteal artery: 46 cm/s, Multiphasic Mid posterior tibial artery: 46 cm/s, Multiphasic LEFT LEG: DIRECT DUPLEX: Common femoral artery: 124 cm/s, Multiphasic Profunda femoris artery: 48 cm/s, Multiphasic Superficial femoral artery (proximal): 116 cm/s, Multiphasic Superficial femoral artery (mid): 88 cm/s, Multiphasic Superficial femoral artery (distal): 79 cm/s, Multiphasic Proximal Popliteal artery: 66 cm/s, Multiphasic Mid posterior tibial artery: 72 cm/s, Multiphasic US/US arterial duplex LE BI IMPRESSION: No hemodynamically significant stenosis in the bilateral lower extremities.
== END 2021-10-24 09:44 | disposition home or self-care (01) ==
LOC: HO.US 09:43
PROVIDERS: Visit Provider Internal Medicine Cardiovascular Disease
DX: I25.10 Atherosclerotic heart disease of native coronary artery without angina pectoris (principal); S51.801S Unspecified open wound of right forearm, sequela
CPT/HCPCS: 93925

== ENCOUNTER 2022-01-28 10:51 | Outpatient (REF) | payer MEDICARE, SELFPAY ==
[2022-01-28 11:05] LABS: MANUAL DIFF FLAG NO
[2022-01-28 12:16] LABS: Appearance Urine Hazy; Color Urine Yellow; Glucose Urine UA Negative (Negative); Leukocyte Esterase Urine Negative (Negative); Nitrite Urine Positive (Negative); PH 5.5 (5.0-9.0); Specific Gravity - Urine >= 1.030 (1.005-1.025); UMIC TRIGGER UACC YES; Urine Blood Negative (Negative); Urine Ketones 15 mg/dL (Negative); Urine Protein Negative (Neg-Trace)
[2022-01-28 12:22] LABS: Basophils Absolute Auto 0.1 X10*3/uL (0.0-0.2); Basophils Percent Auto 0.7 % (0-2); Eosinophils Percent Auto 0.5 % (0-4); Hematocrit 37.7 % (37.0-47.0); Hemoglobin 12.3 g/dl (12.0-16.0); Imm Gran Abs Auto 0.02 X10*3/uL (0.00-0.03); Imm Gran Pct Auto 0.2 % (0.0-0.4); Lymphocytes Absolute Auto 0.9 X10*3/uL (1.2-4.9); Lymphocytes Percent Auto 11.6 % (20-40); Mean Corpuscular HGB Conc 32.6 g/dl (31.0-35.0); Mean Corpuscular Volume 107.4 fL (80.0-98.0); Mean Platelet Volume 11.7 fL (9.4-12.3); Monocytes Absolute Auto 0.8 X10*3/uL (0.1-1.2); Monocytes Percent Auto 9.6 % (2-11); Neutrophils Absolute Auto 6.3 x10*3/uL (2.0-8.3); Neutrophils Percent Auto 77.4 % (45-73); Platelet Count 236 X10*3/uL (160-400); Red Blood Count 3.51 X10*6/uL (4.20-5.50); Red Cell Distribution Width 12.2 % (11.0-16.0); White Blood Count 8.1 X10*3/uL (4.8-10.8)
[2022-01-28 12:23] LABS: Bacteria Urine 4+ (None Seen)
[2022-01-28 12:24] LABS: Hyaline Casts Urine 0-2 /LPF (0-2); RBC Urine 0-2 /HPF (0-2); UACC Culture Trigger YES; WBC Urine 0-5 /HPF (0-5)
[2022-01-28 13:27] LABS: Alanine Aminotransferase 19 U/L (0-31); Albumin Level 3.9 g/dL (3.5-5.0); Alkaline Phosphatase 78 U/L (39-117); Anion Gap 14 (12-20); Aspartate Amino Transferase 31 U/L (5-31); Blood Urea Nitrogen 19 mg/dL (9-16); Calcium 9.8 mg/dL (8.4-10.2); Carbon Dioxide 28 mmol/L (22-29); Chloride 104 mmol/L (96-108); Cholesterol 164 mg/dL; Estimated Glomerular Filt Rate 52; Glucose Fasting 97 mg/dL (60-99); HDL Cholesterol 58 mg/dL; LDL Cholesterol Calculated 82 mg/dl; Potassium 3.7 mmol/L (3.3-5.1); Sodium 142 mmol/L (135-145); TSH reflex Free T4 2.41 uIU/mL (0.32-4.0); Total Protein 6.4 g/dL (6.5-8.0); Triglycerides 121 mg/dL; Vitamin D 25-OH Total 32.4 ng/mL (>30)
== END 2022-01-28 10:52 | disposition home or self-care (01) ==
LOC: HO.LAB 10:51
PROVIDERS: PCP Internal Medicine; Visit Provider Internal Medicine
DX: Z00.00 Encounter for general adult medical examination without abnormal findings (principal); E55.9 Vitamin D deficiency, unspecified; E78.00 Pure hypercholesterolemia, unspecified; I10 Essential (primary) hypertension
CPT/HCPCS: 36415; 80053; 80061; 81001; 82306; 84443; 85025; 87086; 87088; 87186

== ENCOUNTER 2022-02-03 07:47 | Outpatient (REF) | payer MEDICARE, SELFPAY ==
[2022-02-03 08:31] LABS: INTERNATIONAL NORM RATIO 1.1 (0.9-1.1)
[2022-02-03 08:57] LABS: Alanine Aminotransferase 13 U/L (0-31); Albumin Level 3.8 g/dL (3.5-5.0); Alkaline Phosphatase 80 U/L (39-117); Anion Gap 12 (12-20); Aspartate Amino Transferase 17 U/L (5-31); Bilirubin Total 0.9 mg/dL (0.0-1.0); Blood Urea Nitrogen 16 mg/dL (9-16); Calcium 9.9 mg/dL (8.4-10.2); Carbon Dioxide 30 mmol/L (22-29); Chloride 101 mmol/L (96-108); Estimated Glomerular Filt Rate 55; Glucose Random 108 mg/dL (60-115); Potassium 4.1 mmol/L (3.3-5.1); Sodium 139 mmol/L (135-145); Total Protein 6.4 g/dL (6.5-8.0)
[2022-02-03 09:09] LABS: Appearance Urine Cloudy; Color Urine Yellow; Glucose Urine UA Negative (Negative); Leukocyte Esterase Urine Moderate (2+) (Negative); Nitrite Urine Positive (Negative); PH 7.5 (5.0-9.0); Specific Gravity - Urine 1.015 (1.005-1.025); UMIC TRIGGER UACC YES; Urine Blood Negative (Negative); Urine Ketones Negative (Negative); Urine Protein Negative (Neg-Trace)
[2022-02-03 09:24] LABS: Bacteria Urine 4+ (None Seen); Hyaline Casts Urine 0-2 /LPF (0-2); RBC Urine 0-2 /HPF (0-2); UACC Culture Trigger YES; WBC Urine 21-50 /HPF (0-5)
== END 2022-02-03 07:48 | disposition home or self-care (01) ==
LOC: HO.LAB 07:47
PROVIDERS: PCP Internal Medicine; Visit Provider Internal Medicine
DX: Z01.818 Encounter for other preprocedural examination (principal)
CPT/HCPCS: 36415; 80053; 81001; 81003; 85610; 85730; 87086; 87088; 87186

== ENCOUNTER 2022-04-22 14:17 | Outpatient (REF) | payer MEDICARE, SELFPAY ==
--- NOTE | ~2022-04-22 | FL_ITS ---
EXAMINATION: XR BARIUM SWALLOW CLINICAL INFORMATION: Dysphagia. COMPARISON: None TECHNIQUE: Modified barium swallow was performed in upright, sitting and AP view in presence of speech therapist. FINDINGS: On oral administration of various consistencies of barium in lateral view and AP view, which includes barium puree, thick barium and barium coated cookie, there is normal oral mastication and propagation of bolus from the oral cavity through the pharynx into esophagus without obstruction or narrowing. No laryngeal penetration or aspiration seen. FLUOROSCOPY TIME: 1.3 minutes DOSE AREA PRODUCT: 1.069 uGy-m2 (microgray-meter squared) FL/FL barium swallow modified IMPRESSION: 1. Unremarkable modified barium swallow exam. 2. Correlate with speech therapy results.
--- NOTE | 2022-04-22 15:34 | MHC.SL.IMP ---
Date of Plan of Treatment: 04/22/22 Onset of Symptoms/Illness: 03/28/22 Date Treatment Started: 04/22/22 Admitting Diagnosis: Presbysophagus Primary Speech & Language Diagnosis: R13.19 Other Dysphagia Secondary Speech & Language Diagnosis: R41.841 Cognitive communication disorder Reason for Today's Visit: [id number] Modified Barium Swallow Study Comments: Pre-evaluation Dietary Consistencies: Regular Pre-evaluation Liquid Consistency: Thin Pre-evaluation Medication Administration: Whole with Liquid Medical History: Comments: Pt is referred by her PCP, Dr. Ayon, with c/o recent observation of presbysophagus on Barium Swallow in September 2021. Pt has frequent complains of food feeling stuck and needing to take breaks while eating. [facility] Fall Risk Assessment Score: Oral Motor Exam Facial Symmetry: Asymmetrical Facial Movement: Oral-Facial Facial Miscellaneous Observations: Mouth Occlusion: Normal Oral-Facial Teeth Characteristics: Intact/Normal Oral-Facial Teeth Miscellaneous Observation: Oral-Facial Lip Pucker Description: Normal Oral-Facial Smile (Lips) Description: Normal Oral-Facial Puff Cheeks Description: Normal Oral-Facial Lip Miscellaneous Comment: Tongue Size: Normal Tongue Frenum Length: Normal Tongue Excursion Description: Tongue Range of Movement Description: Tongue Speed of Movement Description: Tongue Strength of Movement (against opposing pressure): Tongue Movement Characteristics: Tongue Movement Miscellaneous Observation: Oral Expression Ability: Mild Impairment Is patient able to manage secretions?: Yes Is patient able to produce volitional cough?: Yes Food and Liquid Trials: Oral Impairment: Lip Closure: 2=Escape @ interlabial space/lat juncture; not beyond vermilion border Oral Impairment: Tongue Control During Bolus Hold: 0=Cohesive bolus between tongue to palatal seal Oral Impairment: Bolus Preparation/Mastication: 1=Slow prolonged chewing/mashing with complete re-collection Oral Impairment: Bolus Transport/Lingual Motion: 2=Slowed tongue motion Oral Impairment: Oral Residue: 3=Majority of bolus remaining Oral Impairment:Initiation of Pharyngeal Swallow: 2=Bolus head at posterior laryngeal surface of epiglottis Pharyngeal Impairment: Soft Palate Elevation: 1=Trace column of contrast or air between SP and PW Pharyngeal Impairment: Laryngeal Elevation: 1=Partial thyroid cartilage/arytenoids to epiglottic petiole movement Pharyngeal Impairment: Anterior Hyoid Excursion: 0=Complete anterior movement Pharyngeal Impairment: Epiglottic Movement: 0=Complete inversion Pharyngeal Impairment: Laryngeal Vestibular Closure:: 0=Complete: no air/contrast in laryngeal vestibule Pharyngeal Impairment: Pharyngeal Stripping Wave: 0=Present: complete Pharyngeal Impairment: Pharyngeal Contraction: 0=Complete Pharyngeal Impairment: Pharyngoesophageal Segment Openin=Minimal distension/minimal duration: marked obstruction of flow Pharyngeal Impairment: Tongue Base (TB) Retraction: 1=Trace column of contrast/air between TB and posterior PW Pharyngeal Impairment: Pharyngeal Residue: 1=Trace residue within or on pharyngeal structures Pharyngeal Impairment: Esophageal Clearance Upright Position: 2=Esophageal retention with retrograde flow below PES Impressions and Recommendations Clinical Observations: Liquid Intake Recommendation: Thin Liquid Intake Strategies: Dietary Recommendations: Soft Solids. Medication Administration: Whole with Liquid Please contact the pharmacy regarding appropriate crushable or liquid drug formulations that are available whenever modified delivery is recommended. Compensatory Strategies Recommended: Supervision during eating and or drinking: Total Supervision (1:1) Recommended Treatments: Compens. Strategy Educat. Recommendation for Speech Therapy: Discharged with Instructions for Home Use Text Comment: [id number] difficulty with preparation of a regular solid in the oral phase resulted in sequential swallows to clear. Mild pharyngeal residue with regular solids. No penetration or aspiration with Thin Liquids. A-P view of the esophagus confirmed finding from the previous Barium Swallow of esophageal reflux well below the UES and presence of presbysophagus. Pt sent home with esophageal dysphagia recommendations and referral back to PCP for further management. Timeline to reassess: 6mos.-1yr. Call Center Specialist Clinician/Clinical Fellow: No Supervisory Statement: N/A Speech Language Pathologist: Kwan Lofton M.A., CCC-[employer]
== END 2022-04-22 14:18 | disposition home or self-care (01) ==
LOC: HO.XRAY 14:17
PROVIDERS: Visit Provider Internal Medicine
DX: R13.19 Other dysphagia (principal); R41.841 Cognitive communication deficit
CPT/HCPCS: 74230; 92611

== ENCOUNTER → 2022-07-22 15:09 | Outpatient (BNVA) | payer MEDICARE, SELFPAY | PROVIDERS: PCP Internal Medicine; Referring Provider Internal Medicine; Visit Provider Internal Medicine Cardiovascular Disease | DX: Z45.018 Encounter for adjustment and management of other part of cardiac pacemaker (principal); I48.0 Paroxysmal atrial fibrillation; I49.5 Sick sinus syndrome; I10 Essential (primary) hypertension | CPT/HCPCS: 93280; 99212 ==

== ENCOUNTER 2022-10-27 07:20 | Outpatient (AMB) | payer MEDICARE, SELFPAY ==
--- NOTE | 2022-10-27 07:21 | A.OFFPC_ITS ---
Intake Visit Reasons: f/u Intake Note: wound on left leg, above the ankle is not getting better. Allergies No Known Allergies [No Known Allergies*] Allergy (Verified 10/27/22 07:22) Tobacco use date assessed: 07/22/22 Fall risk assessment: No Falls in past year Last assessed Fall Risk: 10/27/22 Dental Screening Dental Screen Date: 10/27/22 Did you have a dental visit in the last 12 months?: No Did you have a dental problem in the last 6 months where you did not have access to dental care?: No Was dental information given to patient?: No HPI HPI Comments 2 History of Present Illness0 Details [age] year female past history significant for hypertension, AFib, sick sinus syndrome with pacemaker, multifactoral dementia. Patient of Dr. Ayon presents today for teleheath appointment left leg wound x 2 months. Son reports that he was doing daily dressing changes for his mother however he was away for week and he seems that the wound has worsened and patient has developed extending redness on the leg. Patient's son reports that she does have some purulent drainage at times denies any fever, chills. Requesting VNA for daily wound dressing changes, review of the notes patient previously referred to VNA by Dr. Ayon on 10/23 22 and referral department has processes referral and wound pictures were sent to [facility] nurses. 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 Osteoarthritis of left hip Paroxysmal atrial fibrillation Paroxysmal atrial fibrillation Pure hypercholesterolemia Sick sinus syndrome Sinus pause Squamous cell carcinoma of left lower leg (~02/2017) Vitamin D deficiency Surgical History H/O colonoscopy History of hip surgery (~06/2013) History of lumpectomy of right breast (~08/2003) History of permanent cardiac pacemaker placement Hx of basal cell carcinoma excision (~2004) Hx of excision of mass Hx of hernia repair Hx of squamous cell carcinoma excision (~02/2017) Status post hip surgery (~05/14/16) Status post placement of cardiac pacemaker (~10/08/19) Family History Father No problems noted. Mother CVD (cardiovascular disease) CHF (congestive heart failure) Hypertension Brother Bone cancer Diabetes Social History Housing: House Are you a primary director of patient care to a significant other at home: No Do you presently have visiting nurse or other home services: No Alcohol intake: current Alcohol intake frequency: does not drink Alcohol type: wine Patient Tobacco Use Status: Never used Tobacco e-Cigarette/Vaping Use: Never Used Second Hand Smoke Exposure: Yes service: No Current occupational status: retired Cognitive needs: Yes (memory impairment) Hearing needs: Yes Vision needs: No Questionnaire PHQ-9 Over the last 2 weeks, how often have you been bothered by any of the following problems? 1. Little interest or pleasure in doing things: several days 2. Feeling down, depressed, or hopeless: nearly every day 3. Trouble falling or staying asleep, or sleeping too much: not at all 4. Feeling tired or having little energy: not at all 5. Poor appetite or overeating: several days 6. Feeling bad about yourself - or that you are a failure or have let yourself or your family down: several days 7. Trouble concentrating on things, such as reading the newspaper or watching television: not at all 8. Moving or speaking so slowly that other people could have noticed. Or the opposite - being so fidgety or restless that you have been moving around a lot more than usual: several days 9. Thoughts that you would be better off or of hurting yourself in some way: not at all Total score: 7 Depression Screening Interpretation: Positive Depression Screening Follow-up: Existing condition and In treatment 44373 - PHQ-9 Billing: Yes Source: Developed by Drs. William Joyce, Alba Alfonso, Doug Hernandez and colleagues, with an educational bay from [employer]. Thrive Questionnaire Date Thrive assessed: 07/22/22 AUDIT C Alcohol Use Questionnaire (AUDIT-C) 1. How often do you have a drink containing alcohol?: Never 3. How often do you have six or more drinks on one occasion?: Never Total Score: 0 Score Reviewed/Action Taken: Yes ANNALISA-7 AMB Questionnaire ANNALISA-7 Date ANNALISA - 7 assessed: 07/22/22 Source: Developed by Drs. William Joyce, Alba Alfonso, Doug Hernandez and colleagues, with an educational bay from [employer]. Review of Systems Const Denies chills, Denies fatigue, Denies fever(s) and Denies poor appetite Eyes Denies no additional complaints ENT Reports Normal hearing present Card Denies chest pain, Denies syncope, Denies rapid heart rate and Denies dyspnea Resp Denies cough and Denies dyspnea GI Denies change in stool character, Denies constipation, Denies diarrhea, Denies nausea and Denies vomiting Denies urinary frequency, Denies dysuria and Denies urinary urgency Neuro Reports Normal hearing present, Denies confusion and Denies syncope Psych Denies confusion Endo Denies fatigue Physical exam (Primary Care) Tobacco/Smoking Status: Tobacco use Status Tobacco use date assessed 07/22/22 10/27/22 07:23 Patient Tobacco Use Status Never used Tobacco 10/27/22 07:23 e-Cigarette/Vaping Use Never Used 10/27/22 07:23 PHQ-9: PHQ-9 Score PHQ-9: Total score 7 10/27/22 07:42 Depression Screening Interpretation: Positive Depression Screening Follow-up: Existing condition and In treatment Thrive Assessment: Date of Thrive Assessment Date Thrive assessed 07/22/22 10/27/22 07:23 Const General: healthy appearing and no acute distress; No confusion Orientation/consciousness: No confusion Skin Full body images: 2 1. Left rodriguez superficial wound with serous appearing drainage and extending erythema above and below wound. Neuro General: No confusion Cranial nerves: Yes Normal hearing present Telehealth Telehealth Location of provider rendering services: practice address Location of patient: address on file Patient Identification confirmed using: Name, : Yes Telehealth method: video (Iphone) Patient verbally consented to treatment: Yes Patient verbally consented to billing insurance company: Yes Patient informed of any privacy concerns related to visit: Yes Minutes spent on Phone/Video with Pt.: 10 Assessment and Plan Assessment & Plan (1) Leg wound, left: Code(s): S81.802A - Unspecified open wound, left lower leg, initial encounter Plan: Doxycycline bid x 10 days ordered to cover for cellulitis. Patient previous referred to [facility]NA for wound care and referral department processed referral on 10/23/22. Plan Keep scheduled follow up with pcp in November or follow up sooner if needed. Medications: New 2 doxycycline hyclate 100 mg PO BID 20 caps 0RF S81.802A - Unspecified open wound, left lower leg, initial encounter Coding Level of Care Code Tele Est Pt Level 3 (72097) Diagnoses Leg wound, left S81.802A
== END 2022-10-27 09:03 | disposition home or self-care (01) ==
LOC: HO.HMGH 07:20
PROVIDERS: PCP Internal Medicine; Visit Provider Nurse Practitioner Family
DX: S81.802A Unspecified open wound, left lower leg, initial encounter (principal)
CPT/HCPCS: 99213

== ENCOUNTER 2022-10-28 11:12 | Outpatient (AMB) | payer MEDICARE, SELFPAY ==
--- NOTE | 2022-10-28 11:21 | A.OFFVIS_ITS ---
Intake Vital Signs 10/28/22 11:26 Height 5 ft 4 in Weight 112 lb BMI 19.2 BP 129/92 H Blood Pressure Location Lt brachial Position Sitting Pulse 90 Pulse Source Pulse Oximeter Pulse Oximetry (%) 97 Oxygen Delivery Method Room Air Intake Visit Reasons: Hip pain Intake Note: Pain today 8.06/25 Exercise Physiologist Certified Required: No Accompanied by: Daughter Allergies No Known Allergies [No Known Allergies*] Allergy (Verified 10/27/22 07:22) Medication List - Last Reconciled 10/28/22 by DORA Ellis acetaminophen ER (Tylenol Arthritis Pain) Take 2 tablets in AM and 1 tablet in the evening orally for hip pain 30 days apixaban 2.5 mg PO BID 90 days cholecalciferol (vitamin D3) 50 mcg PO Q2D 28 days diltiazem HCl 120 mg PO DAILY donepezil 10 mg PO BEDTIME 30 days doxycycline hyclate 100 mg PO BID escitalopram oxalate 20 mg PO DAILY 30 days hydrochlorothiazide 25 mg PO DAILY 90 days metoprolol succinate ER 100 mg PO BID 90 days HPI Hip pain HPI Details Patient is a pleasant 87 years old female with significant medical history of multifactorial dementia, hearing loss, osteopenia, hypertension, AFib, sick sinus syndrome with pacemaker presents today for initial evaluation of right hip pain that radiates into her right knee. Patient is accompanied [place] her [place]. Patient also has another son and daughter locally and all children are very supportive of the patient. Family reports patient currently resides in [facility]. Patient communicates mostly through her daughter but has been fully engaged and pleasantly involved with history intake and exam. Patient reports right hip, low back and right groin pain with standing or walking and right knee pain with walking or climbing stairs. Her gait is mildly unsteady and she uses cane with ambulation and some assistance. She is not in significant discomfort while sitting, but transitioning to standing or standing to sitting is reported by patient as painful with facial grimacing. Family reports patient had left total hip replacement in the past but declines right hip surgery. Imaging from 2020 is noted for worsening severe advanced osteoarthritis of the right hip. Pain negative with affects patient's activities of daily living, functioning, mobi lity, sleep, mood, and quality of life. Patient and family are interested to proceed with therapeutic right hip steroid injection under light sedation. Patient on his anticoagulation with Eliquis which is managed by her PCP and staff antisubmarine officer Dr. Lay. Patient also presents his left lower leg dressing is surrounding redness and mild warmth to touch. She also has healed right lower leg wound. Family reports patient started doxycycline yesterday to treat left lower extremity cellulitis due to patient constant picking and scratching at her legs or scalp. She is noted to have some multiple healing sores on her scalp as well. Family frequently reminds patient to not scratch or pick at her wounds. Patient is also being set up for VNA services by PCP for wound care. Location Right hip radiates down to right knee and occasionally into right groin Duration Chronic pain for many years, progressively getting worse Characteristics of symptom or complaint Aching, sharp, heavy Aggravating or associated factors Movements, walking, climbing Relieving factors Tylenol extra-strength Treatment None PFSH Medical History Hearing loss Depression Multifactorial dementia [place] (hard of hearing) COVID-19 vaccine series completed Nail atrophy Cardiac pacemaker in situ Memory impairment Sick sinus syndrome Squamous cell carcinoma of left lower leg (~02/2017) Breast cancer, right breast Basal cell carcinoma of right forearm (~2004) Anxiety Osteoarthritis of left hip Insufficiency fracture of right femur Obturator hernia with gangrene Vitamin D deficiency Impaired fasting glucose Pure hypercholesterolemia Essential hypertension, benign Paroxysmal atrial fibrillation Forgetfulness Paroxysmal atrial fibrillation Sinus pause HTN (hypertension) Surgical History H/O colonoscopy Status post hip surgery (~05/14/16) Hx of squamous cell carcinoma excision (~02/2017) Hx of basal cell carcinoma excision (~2004) Status post placement of cardiac pacemaker (~10/08/19) History of hip surgery (~06/2013) Hx of excision of mass Hx of hernia repair History of lumpectomy of right breast (~08/2003) History of permanent cardiac pacemaker placement Family History Father No problems noted. Mother CVD (cardiovascular disease) CHF (congestive heart failure) Hypertension Brother Bone cancer Diabetes Social History (Updated 10/29/22 @ 08:16 by DORA Ellis) Housing: Assisted Living Facility Are you a primary healthcare or medical to a significant other at home: No Do you presently have visiting nurse or other home services: No Alcohol intake: current Alcohol intake frequency: does not drink Alcohol type: wine Patient Tobacco Use Status: Never used Tobacco e-Cigarette/Vaping Use: Never Used Second Hand Smoke Exposure: Yes service: No Current occupational status: retired Cognitive needs: Yes (memory impairment) Hearing needs: Yes Vision needs: No Review of Systems Const All systems reviewed & are unremarkable except as noted in HPI and below Reports as per HPI, Denies body aches, Reports difficulty sleeping, Denies fever(s), Denies weight loss and Reports other (Reports history of falls, no recent falls per family) Musc Reports as per HPI, Denies back pain, Reports arthralgias and Reports limited range of motion Physical Exam Vital Signs: Last Vital Signs Pulse 90 10/28/22 11:26 BP 129/92 H 10/28/22 11:26 Pulse Ox 97 10/28/22 11:26 Oxygen Delivery Method Room Air 10/28/22 11:26 BMI result Body Mass Index 19.2 General: Appears afebrile. Alert and oriented. Mood and affect appropriate. Pleasantly forgetful. Follows and participates in conversation appropriately. Respiratory effort is unlabored. No cough. Able to transition from sit to stand with assistance of her daughter. Ambulates with slow antalgic gait with mild limping. Uses cane. Patient constantly picking and scratching at her scalp and lower legs. Left lower leg with dressing, mild redness and erythema noted around dressing Extrem General: Yes capillary refill normal and Yes no clubbing, cyanosis or edema Right lower extremity: hip/thigh (Right groin pain w/external hip rotation. 4/5 quadriceps strength d/t pain ) Details: normal to inspection and tenderness Location: of the hip Location: laterally, anteriorly and over the greater trochanter; no swelling, no abrasions, no ecchymosis and no unusual warmth Results Reviewed Results Reviewed: XR PELVIS 01/31/2021 CLINICAL INFORMATION: Pain in unspecified hip. COMPARISON: XR pelvis and right hip 07/28/2019. TECHNIQUE: AP and low AP views of the pelvis. FINDINGS: There is a stable-appearing left total hip arthroplasty which appears well-seated in near-anatomic alignment. Severe advanced osteoarthritis of the right hip may have progressed slightly with subtle flattening/collapse of the superolateral weightbearing portion of the right femoral head. There are persistent prominent subchondral degenerative cysts in the superior acetabulum and superolateral right femoral head with surrounding sclerosis and marginal osteophytes. IMPRESSION: Stable-appearing left total hip arthroplasty. Slight worsening severe advanced osteoarthritis of the right hip. MM/XR DEXA axial skeleton 02/29/2020 IMPRESSION: 1. DIAGNOSIS: Osteopenia based on the lowest T-score value of -2.0 in the forearm radius 33% applying World Health Organization criteria. Assessment & Plan Assessment & Plan (1) Multifactorial dementia: Code(s): F03.90 - Unspecified dementia, unspecified severity, without behavioral disturbance, psychotic disturbance, mood disturbance, and anxiety (2) Chronic right hip pain: Code(s): M25.551 - Pain in right hip; G89.29 - Other chronic pain (3) Osteoarthritis of right hip: Code(s): M16.11 - Unilateral primary osteoarthritis, right hip Plan Schedule a right intra-articular hip steroid injection with light sedation and fluoroscopy guidance for chronic right hip pain due to severe advanced osteoarthritis. Expectations, risks and benefits were reviewed with patient and her family. Patient and family are aware they will be contacted to schedule this procedure. Patient is on anti-coagulation with Eliquis, will provide instructions on when to pause with prescribing physician permission. All questions were answered and the patient is in agreement of plan. Follow-up after injection and sooner as needed. Coding Level of Care Code New Pt Level 4 (86017) Diagnoses Multifactorial dementia F03.90 Chronic right hip pain M25.551; G89.29 Osteoarthritis of right hip M16.11
[2022-10-28 11:26] VITALS: BP 129/92; PULSE 90; O2SAT 97; BMI 19.2
== END 2022-10-28 12:30 | disposition home or self-care (01) ==
PROVIDERS: PCP Internal Medicine; Visit Provider Nurse Practitioner Family
DX: M25.551 Pain in right hip (principal); G89.29 Other chronic pain; M16.11 Unilateral primary osteoarthritis, right hip; F03.90 Unspecified dementia, unspecified severity, without behavioral disturbance, psychotic disturbance, mood disturbance, and anxiety
CPT/HCPCS: 99204

== ENCOUNTER → 2022-10-28 11:12 | Outpatient (BNVA) | payer MEDICARE, SELFPAY | PROVIDERS: PCP Internal Medicine; Visit Provider Nurse Practitioner Family ==

== ENCOUNTER → 2022-10-28 23:59 | Outpatient (BNV) | payer MEDICARE, SELFPAY ==
--- NOTE | 2022-10-28 15:22 | A.OFFVIS_ITS ---
Intake Intake Visit Reasons: Remote Device Check- [facility] Allergies No Known Allergies [No Known Allergies*] Allergy (Verified 10/27/22 07:22) PFSH Medical History Hearing loss Depression Multifactorial dementia [place] (hard of hearing) COVID-19 vaccine series completed Nail atrophy Cardiac pacemaker in situ Memory impairment Sick sinus syndrome Squamous cell carcinoma of left lower leg (~02/2017) Breast cancer, right breast Basal cell carcinoma of right forearm (~2004) Anxiety Osteoarthritis of left hip Insufficiency fracture of right femur Obturator hernia with gangrene Vitamin D deficiency Impaired fasting glucose Pure hypercholesterolemia Essential hypertension, benign Paroxysmal atrial fibrillation Forgetfulness Paroxysmal atrial fibrillation Sinus pause HTN (hypertension) Surgical History H/O colonoscopy Status post hip surgery (~05/14/16) Hx of squamous cell carcinoma excision (~02/2017) Hx of basal cell carcinoma excision (~2004) Status post placement of cardiac pacemaker (~10/08/19) History of hip surgery (~06/2013) Hx of excision of mass Hx of hernia repair History of lumpectomy of right breast (~08/2003) History of permanent cardiac pacemaker placement Family History Father No problems noted. Mother CVD (cardiovascular disease) CHF (congestive heart failure) Hypertension Brother Bone cancer Diabetes Social History Housing: House Are you a primary neurocritical care physician to a significant other at home: No Do you presently have visiting nurse or other home services: No Alcohol intake: current Alcohol intake frequency: does not drink Alcohol type: wine Patient Tobacco Use Status: Never used Tobacco e-Cigarette/Vaping Use: Never Used Second Hand Smoke Exposure: Yes service: No Current occupational status: retired Cognitive needs: Yes (memory impairment) Hearing needs: Yes Vision needs: No Office Procedures Cardiac Device Check Cardiac Device Check Details: Remote pacemaker report generated 10/28/2022. Increasing burden of atrial fibrillation noted with total burden of 69% with persistent atrial fibrillation for the last 6 days [id number] Cardiac Device Interrogation, pacemaker Procedure code (CPT) selection complete Coding Level of Care Code Procedure Only CPT Codes Cardiac Device Check - Cardiac Device 12: [id number] Cardiac Device Interrogation, pacemaker ([id number])
== END ==
PROVIDERS: PCP Internal Medicine; Visit Provider Internal Medicine Cardiovascular Disease
DX: I48.0 Paroxysmal atrial fibrillation (principal); Z95.0 Presence of cardiac pacemaker
CPT/HCPCS: 93294

== ENCOUNTER 2022-12-04 14:49 | Outpatient (REF) | payer MEDICARE, SELFPAY ==
--- NOTE | 2022-12-08 09:27 | MHC.AU.HA3 ---
Hearing Instrument Follow-Up- Binaural Date of Visit: 12/05/22 Right Ear: Pieter, Model, Color, Serial Number: Kasandra Sanches [id number]-[id number] SN: [id number] Color: Ronda Cabral Dry Mixer Repair Warranty: 06/01/2022 Dry Mixer Loss and Damage Warranty: 06/01/2022 Battery Size: Rechargeable Passport Support Manager/Slim Tube: 2M Earmold/Dome/CShell/SlimTip:Small vented dome Type of Wax Guard: CeruShield Dispensed By: Unknown Date of Fitting: Per [employer], 02/22/2019 Left Ear: Pieter, Model, Color, Serial Number: Kasandra Sanches [id number]-[id number] SN: [id number] Color: Ronda Cabral Dry Mixer Repair Warranty: 06/01/2022 Dry Mixer Loss and Damage Warranty: 06/01/2022 Battery Size: Rechargeable Passport Support Manager/Slim Tube: 2M Earmold/Dome/CShell/SlimTip: Small vented dome Type of Wax Guard: CeruShield Dispensed By: Unknown Date of Fitting: Per [employer], 02/22/2019 Follow-Up Summary: Kimberly, accompanied by her daughter, Luz, brought hearing aids that were purchased about three years ago. Kimberly has Alzheimer's Disease and has never wore the hearing aids consistently. She reportedly has difficulty inserting them and never acclimated to the sound quality. Kimberly is reportedly not bothered by her hearing loss and will hear what she wants. However, her daughter is concerned that Kimberly is missing out socially due to her hearing difficulty. Discussed poor speech discrimination and limited benefit from hearing aids; however, recommend trying to use them again to help ease some of her hearing troubles. Also briefly discussed possibility of adding c-chells. Both hearing aids were . Tried charging during testing. Able to connect to [employer] but only 13% battery life. Firmware update available; however, could not complete due to low battery power. Cleaned hearing aids. Replaced domes and wax guards. Will need to reschedule for full reprogramming with real ear measures as hearing aids are not charged enough to complete. Kimberly and Luz opted to keep both hearing aids, bone worker, cord, and wall plug here until next appointment. Recommendations: Return on 01/01/2023 for reprogramming with real ear measures. Quoted $90.00. Hearing aids, bone worker, cord, and wall plug on shelf in [facility]' office. Diagnosis Code(s): Primary Diagnosis: H90.3 Bilateral Sensorineural Hearing Loss Signature: Provider: Reggie Giron, [facility]
== END 2022-12-04 14:50 | disposition home or self-care (01) ==
LOC: HO.SH 14:49
PROVIDERS: Visit Provider Internal Medicine
DX: Z01.118 Encounter for examination of ears and hearing with other abnormal findings (principal); H90.3 Sensorineural hearing loss, bilateral
CPT/HCPCS: 92557; 92567

== ENCOUNTER → 2023-01-19 13:20 | Outpatient (BNVA) | payer MEDICARE, SELFPAY | PROVIDERS: PCP Internal Medicine; Visit Provider Nurse Practitioner ==

== ENCOUNTER 2023-01-22 10:41 | Day surgery (SDC) | payer MEDICARE, SELFPAY ==
[2023-01-15 10:19] VITALS: BMI 19.2
--- NOTE | 2023-01-21 10:01 | P.CONAN_ITS ---
HPI - Anesthesia Eval Consult details Narrative: 87yo F for Right Hip Intra-Articular Steriod Injection Eliquis for afib Pacer in situ for SSS [place] [facility] [place] Last office visit 07/2022. Stable without symptoms. HTN optimized. Pacer reprogrammed. Dementia ? mild Recurring LE and scalp wounds d/t pt scratching and picking. 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 (Acute) Preop cardiovascular exam (Acute) NSVT (nonsustained ventricular tachycardia) (Acute) Status post fall (Acute) Hearing loss (Acute) Depression (Acute) Multifactorial dementia (Acute) Nail atrophy (Acute) Cardiac pacemaker in situ (Acute) Memory impairment (Acute) Sick sinus syndrome (Acute) Anxiety (Acute) Osteoarthritis of left hip (Acute) Vitamin D deficiency (Acute) Impaired fasting glucose (Acute) Pure hypercholesterolemia (Acute) Essential hypertension, benign (Acute) Paroxysmal atrial fibrillation (Acute) Forgetfulness (Acute) Paroxysmal atrial fibrillation (Acute) Status post placement of cardiac pacemaker (Acute ~10/08/19) Sinus pause (Acute) HTN (hypertension) (Acute) Past Medical History Medical History (Updated 10/29/22 @ 08:31 by DORA Ellis) Hearing loss Depression 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) COVID-19 vaccine series completed Nail atrophy Cardiac pacemaker in situ Memory impairment Sick sinus syndrome Squamous cell carcinoma of left lower leg (~02/2017) Breast cancer, right breast Basal cell carcinoma of right forearm (~2004) Anxiety Osteoarthritis of left hip Insufficiency fracture of right femur Obturator hernia with gangrene Vitamin D deficiency Impaired fasting glucose Pure hypercholesterolemia Essential hypertension, benign Paroxysmal atrial fibrillation Forgetfulness Paroxysmal atrial fibrillation Sinus pause HTN (hypertension) Family History Family History Father No problems noted. Mother CVD (cardiovascular disease) CHF (congestive heart failure) Hypertension Brother Bone cancer Diabetes Family history of problems with anesthesia: No Surgical History Surgical History (Updated 01/15/23 @ 10:20 by Sophia Khan RN) H/O colonoscopy Status post hip surgery (~05/14/16) Hx of squamous cell carcinoma excision (~02/2017) Hx of basal cell carcinoma excision (~2004) Status post placement of cardiac pacemaker (~10/08/19) History of hip surgery (~06/2013) Hx of excision of mass Hx of hernia repair History of lumpectomy of right breast (~08/2003) History of permanent cardiac pacemaker placement History of Problems with Anesthesia: No Social History Social History (Updated 10/29/22 @ 08:16 by DORA Ellis) Housing: Assisted Living Facility Are you a primary medicare interviewer to a significant other at home: No Do you presently have visiting nurse or other home services: No Alcohol intake: current Alcohol intake frequency: does not drink Alcohol type: wine Patient Tobacco Use Status: Never used Tobacco e-Cigarette/Vaping Use: Never Used Second Hand Smoke Exposure: Yes service: No Current occupational status: retired Cognitive needs: Yes (memory impairment) Hearing needs: Yes Vision needs: No Meds Allergies Allergy/AdvReac Type Severity Reaction Status Date / Time No Known Allergies Allergy Verified 10/27/22 07:22 [No Known Allergies*] Exam Height,Weight and Vital Signs: Height 5 ft 4 in Weight 50.802 kg Narrative Narrative: Cardiac Device Check 10/2022 Details: Remote pacemaker report generated 10/28/2022. Increasing burden of atrial fibrillation noted with total burden of 69% with persistent atrial fibrillation for the last 6 days ECHO 08/2020 Conclusions: - 1. Normal LV systolic function ? 2. Mildly dilated left atrium? 3. Moderate mitral and calcification with normal cardiac valvular Doppler? 4. Normal RV systolic pressure ? 5. No pericardial effusion ?? NM joseline perf SPECT rest & str 08/2020 Impression: ? 1.? Myocardial perfusion imaging study shows normal myocardial perfusion 2.? Gated LVEF is 69% 3. Transient ischemic dilatation not present ? EKG is nondiagnostic for ischemia Assessment and Plan Assessment Anesthesia Assessment: Chart Reviewed Final Anesthetic Review Family History of Problems with Anesthesia: No History of Problems with Anesthesia: No
[2023-01-22] VITALS (9 sets, daily range): BP systolic 123–159; BP diastolic 59–105; PULSE 65–90; RESP 14–19; TEMP 36.4–36.8; O2SAT 96–97
--- NOTE | ~2023-01-22 | FL_ITS ---
EXAMINATION: XR FLUOROSCOPY WITH IMAGES CLINICAL INFORMATION: Right hip injection. COMPARISON: None available. TECHNIQUE: Fluoroscopy Supervised By: Dr. Martin Zamudio. Fluoroscopy Time: 0.1 minute. Cumulative Dose: 6.76 mGy. DAP: 0.821 Gycm2. Images: 2. FINDINGS: Images demonstrate needle placement and contrast injection of the right hip joint. There is severe right hip osteoarthritis. FL/FL guidance in OR IMPRESSION: Fluoroscopy guidance for right hip injection.
[2023-01-22] MEDS: Lactated Ringers 1,000 ML 100 ML IVCONT (12:10)
--- NOTE | 2023-01-22 13:39 | P.CONAN_ITS ---
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 (Acute) Preop cardiovascular exam (Acute) NSVT (nonsustained ventricular tachycardia) (Acute) Status post fall (Acute) Hearing loss (Acute) Depression (Acute) Multifactorial dementia (Acute) Nail atrophy (Acute) Cardiac pacemaker in situ (Acute) Memory impairment (Acute) Sick sinus syndrome (Acute) Anxiety (Acute) Osteoarthritis of left hip (Acute) Vitamin D deficiency (Acute) Impaired fasting glucose (Acute) Pure hypercholesterolemia (Acute) Essential hypertension, benign (Acute) Paroxysmal atrial fibrillation (Acute) Forgetfulness (Acute) Paroxysmal atrial fibrillation (Acute) Status post placement of cardiac pacemaker (Acute ~10/08/19) Sinus pause (Acute) HTN (hypertension) (Acute) Past Medical History Medical History Hearing loss Depression Multifactorial dementia [place] (hard of hearing) COVID-19 vaccine series completed Nail atrophy Cardiac pacemaker in situ Memory impairment Sick sinus syndrome Squamous cell carcinoma of left lower leg (~02/2017) Breast cancer, right breast Basal cell carcinoma of right forearm (~2004) Anxiety Osteoarthritis of left hip Insufficiency fracture of right femur Obturator hernia with gangrene Vitamin D deficiency Impaired fasting glucose Pure hypercholesterolemia Essential hypertension, benign Paroxysmal atrial fibrillation Forgetfulness Paroxysmal atrial fibrillation Sinus pause HTN (hypertension) Family History Family History Father No problems noted. Mother CVD (cardiovascular disease) CHF (congestive heart failure) Hypertension Brother Bone cancer Diabetes Family history of problems with anesthesia: No Surgical History Surgical History H/O colonoscopy Status post hip surgery (~05/14/16) Hx of squamous cell carcinoma excision (~02/2017) Hx of basal cell carcinoma excision (~2004) Status post placement of cardiac pacemaker (~10/08/19) History of hip surgery (~06/2013) Hx of excision of mass Hx of hernia repair History of lumpectomy of right breast (~08/2003) History of permanent cardiac pacemaker placement History of Problems with Anesthesia: No Social History Social History Housing: Assisted Living Facility Are you a primary care process manager to a significant other at home: No Do you presently have visiting nurse or other home services: No Alcohol intake: current Alcohol intake frequency: holidays/special occasions only Alcohol type: wine Patient Tobacco Use Status: Never used Tobacco e-Cigarette/Vaping Use: Never Used Second Hand Smoke Exposure: No Use of substances other than those prescribed or required for medical reasons: No Are you DNR?: No Advance Directives: No Advance Directives Information Provided: Yes Advance Directives on File: No service: No Current occupational status: retired Cognitive needs: Yes (memory impairment) Hearing needs: Yes Vision needs: No Meds Allergies Allergy/AdvReac Type Severity Reaction Status Date / Time No Known Allergies Allergy Verified 10/27/22 07:22 [No Known Allergies*] Active Medications: Current Medications Lactated Ringer's (Lr) 1,000 mls @ 100 mls/hr IVCONT .Q10H LUCIUS Last Admin: 01/22/23 12:10 Dose: 100 mls/hr Exam Height,Weight and Vital Signs: Height 5 ft 4 in Weight 50.802 kg Last Vital Signs Temp 98.2 F 01/22/23 11:46 Pulse 66 01/22/23 11:46 Resp 16 01/22/23 11:46 BP 133/59 L 01/22/23 11:46 Pulse Ox 97 01/22/23 11:46 O2 Del Method Room Air 01/22/23 11:46 Airway Mallampati Class: II TM Dist: >3cm Neck ROM: Full Heart: RRR Lungs: CTA Assessment and Plan Assessment Anesthesia Assessment: Anesthesia Plan Discussed Final Anesthetic Review Family History of Problems with Anesthesia: No History of Problems with Anesthesia: No ASA Class: III Final Preanesthetic Review: Meds/Allgs Chart Reviewed, Consent Obtained/Reviewed and Anes Risks/Benef Reviewed Patient Risk: Low Procedure Risk: Low Anesthetic Plan Anesthetic Plan: MAC: Disposition: Standard PACU
--- NOTE | 2023-01-22 14:30 | MHC.SHP ---
Pre-Procedural Eval Section A Date of Service: 01/22/23 The patient is an INPATIENT: No Changes since office visit: Yes Patient answered all questions The History & Physical has been completed within 30 days and I have reviewed it.: No Section B Chief Complaint: Unilateral primary osteoarthritis, right hip, Details of Present Illness: as above Relevant Family History (Specify if Yes): No Relevant Social History: None Present Medications: see Short Stay Collaborative assessment Medical History: Significant History History of Previous Operations: No relevant previous surgery Allergies: Allergies Allergy/AdvReac Type Severity Reaction Status Date / Time No Known Allergies Allergy Verified 10/27/22 07:22 [No Known Allergies*] Review of Systems Sugical H&P ROS: Negative: Constitution, Cardiovascular, Respiratory, Neurological, Hem-Onc, Allergic/Immunologic, Gastrointestinal, Genitourinary, Musculoskeletal, Integumentary, Endocrine and Eyes/Ears/Nose/Throat and Yes, Specify: Psychiatric (dementia) Exam Surgical H&P Exam: Normal: HEENT, Normal: Heart, Normal: Lungs, Normal: Extremities, Normal: Abdomen, Normal: Skin and Normal: Neurological Plan Diagnosis/Plan: Unchanged I have reviewed the history and physical and performed a pertinent physical examination on my patient. No changes have occurred unless specified. Time Spent With Patient Time: Total time managing care of this patient today _5___ minutes.
--- NOTE | 2023-01-22 14:35 | P.BOP_ITS ---
Brief Operative Note Date of Service: 01/22/23 Pre-op diagnosis: right hip arthritis Post-op diagnosis: same Procedure: right hip steroid injection Implants: none Surgeon: Martin Zamudio MD Anesthesia: MAC Was an Medical Doctor Nuclear Medicine used for this Procedure?: No Estimated blood loss (mL): 0 Pathology: none sent Condition: stable Disposition: PACU
--- NOTE | 2023-01-22 14:44 | W.PM.OPN ---
Operative Note Operative Note Date of Service: 01/22/23 Narrative: right hip steroid injection. after obtaining informed consent from the daughter of the patient the patient was brought to the operating room and she was position left lateral decubital on the operating table. [place] [employer] monitors were applied and patient was sedated. Time-out was performed delineating patient's name and date of , correct site, side, the nature of the procedure, patient's allergy, preoperative antibiotic if needed, need for VT prophylaxis.. All operating room staff was participating in OR time-out procedure. Right hip area of the patient was prepped with ChloraPrep and draped with sterile towels. C-arm was brought over the operating field and picture of left and right lateral views of the bilateral hip joints were delineated on the screen. the left hip prosthesis was noted. The smaller joint silhouette was chosen as the target. Projection of the right trochanter to the skin was chosen as the initial needle insertion point. After that the skin and subcutaneous tissues was anesthetized with 2% lidocaine 2mL. 22 gauge 5 in long needle was inserted through the skin and started to advance to the joint space under intermittent lateral and anterior posterior views. When needle entered the capsule of the joint small amount of the contrast was injected delineating intra-articular space. After that treatment solution containing 4 mls of ropivacaine 0.5% and 40 mg of Kenalog was injected into the joint. The needle was withdrawn sterile dressing was applied.The patient tolerated procedure well.
--- NOTE | 2023-01-22 14:57 | HO.ANESPROP2 ---
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 (Acute) Preop cardiovascular exam (Acute) NSVT (nonsustained ventricular tachycardia) (Acute) Status post fall (Acute) Hearing loss (Acute) Depression (Acute) Multifactorial dementia (Acute) Nail atrophy (Acute) Cardiac pacemaker in situ (Acute) Memory impairment (Acute) Sick sinus syndrome (Acute) Anxiety (Acute) Osteoarthritis of left hip (Acute) Vitamin D deficiency (Acute) Impaired fasting glucose (Acute) Pure hypercholesterolemia (Acute) Essential hypertension, benign (Acute) Paroxysmal atrial fibrillation (Acute) Forgetfulness (Acute) Paroxysmal atrial fibrillation (Acute) Status post placement of cardiac pacemaker (Acute ~10/08/19) Sinus pause (Acute) HTN (hypertension) (Acute) Past Medical History Medical History Hearing loss Depression Multifactorial dementia [place] (hard of hearing) COVID-19 vaccine series completed Nail atrophy Cardiac pacemaker in situ Memory impairment Sick sinus syndrome Squamous cell carcinoma of left lower leg (~02/2017) Breast cancer, right breast Basal cell carcinoma of right forearm (~2004) Anxiety Osteoarthritis of left hip Insufficiency fracture of right femur Obturator hernia with gangrene Vitamin D deficiency Impaired fasting glucose Pure hypercholesterolemia Essential hypertension, benign Paroxysmal atrial fibrillation Forgetfulness Paroxysmal atrial fibrillation Sinus pause HTN (hypertension) Family History Family History Father No problems noted. Mother CVD (cardiovascular disease) CHF (congestive heart failure) Hypertension Brother Bone cancer Diabetes Family history of problems with anesthesia: No Surgical History Surgical History H/O colonoscopy Status post hip surgery (~05/14/16) Hx of squamous cell carcinoma excision (~02/2017) Hx of basal cell carcinoma excision (~2004) Status post placement of cardiac pacemaker (~10/08/19) History of hip surgery (~06/2013) Hx of excision of mass Hx of hernia repair History of lumpectomy of right breast (~08/2003) History of permanent cardiac pacemaker placement History of Problems with Anesthesia: No Social History Social History Housing: Assisted Living Facility Are you a primary skin care instructor to a significant other at home: No Do you presently have visiting nurse or other home services: No Alcohol intake: current Alcohol intake frequency: holidays/special occasions only Alcohol type: wine Patient Tobacco Use Status: Never used Tobacco e-Cigarette/Vaping Use: Never Used Second Hand Smoke Exposure: No Use of substances other than those prescribed or required for medical reasons: No Are you DNR?: No Advance Directives: No Advance Directives Information Provided: Yes Advance Directives on File: No service: No Current occupational status: retired Cognitive needs: Yes (memory impairment) Hearing needs: Yes Vision needs: No Meds Allergies Allergy/AdvReac Type Severity Reaction Status Date / Time No Known Allergies Allergy Verified 10/27/22 07:22 [No Known Allergies*] Active Medications: Current Medications Acetaminophen (Acetaminophen 325 Mg Tablet) 650 mg PO ONCE PRN PRN Reason: Pain, Mild (Pain Scale 1-3) Fentanyl (Fentanyl Citrate/Pf 100 Mcg/2 Ml Vial) 25 mcg IVPUSH Q5M PRN; Protocol PRN Reason: Pain, Moderate(Pain Scale 4-6) Lactated Ringer's (Lr) 1,000 mls @ 100 mls/hr IVCONT .Q10H LUCIUS Last Admin: 01/22/23 12:10 Dose: 100 mls/hr Exam Height,Weight and Vital Signs: Height 5 ft 4 in Weight 50.802 kg Last Vital Signs Temp 98.2 F 01/22/23 11:46 Pulse 66 01/22/23 11:46 Resp 16 01/22/23 11:46 BP 133/59 L 01/22/23 11:46 Pulse Ox 97 01/22/23 11:46 O2 Del Method Room Air 01/22/23 11:46 Airway Mallampati Class: III TM Dist: >3cm Heart: irregular Lungs: CTA Assessment and Plan Assessment Anesthesia Assessment: Anesthesia Plan Discussed Final Anesthetic Review Family History of Problems with Anesthesia: No History of Problems with Anesthesia: No ASA Class: III Final Preanesthetic Review: Meds/Allgs Chart Reviewed, Consent Obtained/Reviewed and Anes Risks/Benef Reviewed Patient Risk: Low Procedure Risk: Low Anesthetic Plan Anesthetic Plan: MAC: Disposition: Standard PACU
--- NOTE | 2023-01-22 17:19 | HO.POSTANES ---
Post Anesthesia Evaluation Post Anesthesia Evaluation Date of Service: 01/22/23 Vital Signs: Vital Signs Temp Pulse Resp BP Pulse Ox O2 Del Method 01/22/23 16:30 80 18 156/87 H 97 Room Air 01/22/23 16:00 77 18 159/93 H 97 Room Air 01/22/23 15:45 90 18 149/83 H 97 Room Air 01/22/23 15:30 88 18 123/102 H 97 01/22/23 15:25 87 19 141/105 H 97 01/22/23 15:20 79 17 148/101 H 96 01/22/23 15:15 78 14 146/73 H 97 01/22/23 15:10 97.6 F 65 16 141/66 H 97 Room Air 01/22/23 11:46 98.2 F 66 16 133/59 L 97 Room Air Anesthesia: Monitored Mental Status: Awake Pain Control: Satisfactory Nausea/Vomiting: None (g) Hydration: Adequate Anesthesia-Related Issues: No Anes. Related Issues
== END 2023-01-22 17:03 | disposition home or self-care (01) ==
PROVIDERS: PCP Internal Medicine; Visit Provider Anesthesiology
PROC: (CPT 20610; principal; 2023-01-22 12:40)
DX: M25.551 Pain in right hip (principal); G89.29 Other chronic pain; M16.11 Unilateral primary osteoarthritis, right hip; M85.80 Other specified disorders of bone density and structure, unspecified site; M54.50 Low back pain, unspecified; R26.81 Unsteadiness on feet; Z99.89 Dependence on other enabling machines and devices; F03.90 Unspecified dementia, unspecified severity, without behavioral disturbance, psychotic disturbance, mood disturbance, and anxiety; H91.90 Unspecified hearing loss, unspecified ear; I48.91 Unspecified atrial fibrillation; I10 Essential (primary) hypertension; I49.5 Sick sinus syndrome; Z95.0 Presence of cardiac pacemaker; Z79.01 Long term (current) use of anticoagulants; Z79.899 Other long term (current) drug therapy; Z96.642 Presence of left artificial hip joint; Z85.3 Personal history of malignant neoplasm of breast; Z85.828 Personal history of other malignant neoplasm of skin; Z98.890 Other specified postprocedural states
CPT/HCPCS: 20610; J2704; J2795; J3301; Q9967

== ENCOUNTER → 2023-01-22 10:41 | Outpatient (BNV) | payer MEDICARE, SELFPAY | PROVIDERS: PCP Internal Medicine; Visit Provider Anesthesiology | DX: M25.551 Pain in right hip (principal) | CPT/HCPCS: 20610; 77002 ==

== ENCOUNTER → 2023-01-28 23:59 | Outpatient (BNV) | payer MEDICARE, SELFPAY ==
--- NOTE | 2023-01-28 13:22 | A.OFFVIS_ITS ---
Intake Intake Visit Reasons: Remote Device Check- [facility] Allergies No Known Allergies [No Known Allergies*] Allergy (Verified 10/27/22 07:22) PFSH Medical History Hearing loss Depression Multifactorial dementia [place] (hard of hearing) COVID-19 vaccine series completed Nail atrophy Cardiac pacemaker in situ Memory impairment Sick sinus syndrome Squamous cell carcinoma of left lower leg (~02/2017) Breast cancer, right breast Basal cell carcinoma of right forearm (~2004) Anxiety Osteoarthritis of left hip Insufficiency fracture of right femur Obturator hernia with gangrene Vitamin D deficiency Impaired fasting glucose Pure hypercholesterolemia Essential hypertension, benign Paroxysmal atrial fibrillation Forgetfulness Paroxysmal atrial fibrillation Sinus pause HTN (hypertension) Surgical History H/O colonoscopy Status post hip surgery (~05/14/16) Hx of squamous cell carcinoma excision (~02/2017) Hx of basal cell carcinoma excision (~2004) Status post placement of cardiac pacemaker (~10/08/19) History of hip surgery (~06/2013) Hx of excision of mass Hx of hernia repair History of lumpectomy of right breast (~08/2003) History of permanent cardiac pacemaker placement Family History Father No problems noted. Mother CVD (cardiovascular disease) CHF (congestive heart failure) Hypertension Brother Bone cancer Diabetes Social History Housing: Assisted Living Facility Are you a primary director career services to a significant other at home: No Do you presently have visiting nurse or other home services: No Alcohol intake: current Alcohol intake frequency: holidays/special occasions only Alcohol type: wine Patient Tobacco Use Status: Never used Tobacco e-Cigarette/Vaping Use: Never Used Second Hand Smoke Exposure: No service: No Current occupational status: retired Cognitive needs: Yes (memory impairment) Hearing needs: Yes Vision needs: No Office Procedures Cardiac Device Check Cardiac Device Check Details: Remote pacemaker report generated 01/28/2023. Pacemaker function is adequate. Increasing burden of atrial fibrillation noted. Will follow-up with patient [id number] Cardiac Device Interrogation, pacemaker Procedure code (CPT) selection complete Assessment & Plan Assessment & Plan (1) Cardiac pacemaker in situ: Code(s): Z95.0 - Presence of cardiac pacemaker Plan: See above Coding Level of Care Code Procedure Only Diagnoses Cardiac pacemaker in situ Z95.0 CPT Codes Cardiac Device Check - Cardiac Device 12: [id number] Cardiac Device Interrogation, pacemaker ([id number])
== END ==
PROVIDERS: PCP Internal Medicine; Visit Provider Internal Medicine Cardiovascular Disease
DX: I48.0 Paroxysmal atrial fibrillation (principal); Z95.0 Presence of cardiac pacemaker
CPT/HCPCS: 93294

== ENCOUNTER 2023-02-26 10:57 | Outpatient (AMB) | payer MEDICARE, SELFPAY ==
--- NOTE | 2023-02-26 10:57 | A.OFFVIS_ITS ---
Intake Vital Signs 02/26/23 11:01 Height 5 ft 4 in Weight 112 lb BMI 19.2 BP 120/72 Blood Pressure Location Lt brachial Position Sitting Pulse 72 Pulse Source Pulse Oximeter Pulse Oximetry (%) 98 Oxygen Delivery Method Room Air Intake Visit Reasons: S/p (R) Intra-articular Steroid HipInj 01/22/23Conf Intake Note: Pain tody 04/25 Stereoptician Required: No Accompanied by: Daughter Allergies No Known Allergies [No Known Allergies*] Allergy (Verified 02/26/23 11:00) HPI HPI Comments History of Present Illness Details Patient presents today to assess response to right intra-articular hip steroid injection on 01/22/[address] Zamudio. Patient reports ongoing 70% pain relief with significant improvement in her daily functioning, mobility, sleep and social interactions. Patient is very content with outcome of recent hip injections. She enjoys pain free movements with walking. She misses dancing activities, especially Polka dance, that she was able to do a few years ago. Patient denies any recent cough, cold, infection, fever or other significant changes in medical history since last office visit. Past Procedures: 01/22/23: Right intra-articular hip ster oid injection-70% ongoing pain relief PRIOR: Patient is a pleasant 87 years old female with significant medical history of multifactorial dementia, hearing loss, osteopenia, hypertension, AFib, sick sinus syndrome with pacemaker presents today for initial evaluation of right hip pain that radiates into her right knee. Patient is accompanied by her daughter who is visiting from [place]. Patient also has another son and daughter locally and all children are very supportive of the patient. Family reports patient currently resides in [facility]. Patient communicates mostly through her daughter but has been fully engaged and pleasantly involved with history intake and exam. Patient reports right hip, low back and right groin pain with standing or walking and right knee pain with walking or climbing stairs. Her gait is mildly unsteady and she uses cane with ambulation and some assistance. She is not in significant discomfort while sitting, but transitioning to standing or standing to sitting is reported by patient as painful with facial grimacing. Family reports patient had left total hip replacement in the past but declines right hip surgery. Imaging from 2020 is noted for worsening severe advanced osteoarthritis of the right hip. Pain negative with affects patient's activities of daily living, functioning, mobility, sleep, mood, and quality of life. Patient and family are interested to proceed with therapeutic right hip steroid injection under light sedation. Patient on his anticoagulation with Eliquis which is managed by her PCP and medical director of hospice Dr. Lay. Patient also presents his left lower leg dressing is surrounding redness and mild warmth to touch. She also has healed right lower leg wound. Family reports patient started doxycycline yesterday to treat left lower extremity cellulitis due to patient constant picking and scratching at her legs or scalp. She is noted to have some multiple healing sores on her scalp as well. Family frequently reminds patient to not scratch or pick at her wounds. Patient is also being set up for VNA services by PCP for wound care. Location Right hip radiates down to right knee and occasionally into right groin Duration Chronic pain for many years, progressively getting worse Characteristics of symptom or complaint Aching, sharp, heavy Aggravating or associated factors Movements, walking, climbing Relieving factors Tylenol extra-strength Treatment None PFSH Medical History Hearing loss Depression Multifactorial dementia [place] (hard of hearing) COVID-19 vaccine series completed Nail atrophy Cardiac pacemaker in situ Memory impairment Sick sinus syndrome Squamous cell carcinoma of left lower leg (~02/2017) Breast cancer, right breast Basal cell carcinoma of right forearm (~2004) Anxiety Osteoarthritis of left hip Insufficiency fracture of right femur Obturator hernia with gangrene Vitamin D deficiency Impaired fasting glucose Pure hypercholesterolemia Essential hypertension, benign Paroxysmal atrial fibrillation Forgetfulness Paroxysmal atrial fibrillation Sinus pause HTN (hypertension) Surgical History H/O colonoscopy Status post hip surgery (~05/14/16) Hx of squamous cell carcinoma excision (~02/2017) Hx of basal cell carcinoma excision (~2004) Status post placement of cardiac pacemaker (~10/08/19) History of hip surgery (~06/2013) Hx of excision of mass Hx of hernia repair History of lumpectomy of right breast (~08/2003) History of permanent cardiac pacemaker placement Family History Father No problems noted. Mother CVD (cardiovascular disease) CHF (congestive heart failure) Hypertension Brother Bone cancer Diabetes Social History Housing: Assisted Living Facility Are you a primary health care technician to a significant other at home: No Do you presently have visiting nurse or other home services: No Alcohol intake: current Alcohol intake frequency: holidays/special occasions only Alcohol type: wine Patient Tobacco Use Status: Never used Tobacco e-Cigarette/Vaping Use: Never Used Second Hand Smoke Exposure: No service: No Current occupational status: retired Cognitive needs: Yes (memory impairment) Hearing needs: Yes Vision needs: No Review of Systems Const All systems reviewed & are unremarkable except as noted in HPI and below Physical Exam Vital Signs: Last Vital Signs Pulse 72 02/26/23 11:01 BP 120/72 02/26/23 11:01 Pulse Ox 98 02/26/23 11:01 Oxygen Delivery Method Room Air 02/26/23 11:01 BMI result Body Mass Index 19.2 General: Appears afebrile. Alert and oriented. Mood and affect appropriate. Pleasantly forgetful. Follows and participates in conversation appropriately. Respiratory effort is unlabored. No cough. Able to transition from sit to stand with assistance of her daughter. Ambulates with slow antalgic gait, no limping. Uses cane. Extrem General: Yes capillary refill normal, Yes no clubbing, cyanosis or edema and Yes no calf tenderness Right lower extremity: hip/thigh (No lateral hip or groin pain with I/E hip rota tion) Details: normal to inspection and normal ROM; no tenderness and no swelling Results Reviewed Results Reviewed: XR PELVIS 01/31/2021 CLINICAL INFORMATION: Pain in unspecified hip. COMPARISON: XR pelvis and right hip 07/28/2019. TECHNIQUE: AP and low AP views of the pelvis. FINDINGS: There is a stable-appearing left total hip arthroplasty which appears well-seated in near-anatomic alignment. Severe advanced osteoarthritis of the right hip may have progressed slightly with subtle flattening/collapse of the superolateral weightbearing portion of the right femoral head. There are persistent prominent subchondral degenerative cysts in the superior acetabulum and superolateral right femoral head with surrounding sclerosis and marginal osteophytes. IMPRESSION: Stable-appearing left total hip arthroplasty. Slight worsening severe advanced osteoarthritis of the right hip. MM/XR DEXA axial skeleton 02/29/2020 IMPRESSION: 1. DIAGNOSIS: Osteopenia based on the lowest T-score value of -2.0 in the forearm radius 33% applying World Health Organization criteria. Assessment & Plan Assessment & Plan (1) Osteoarthritis of right hip: Code(s): M16.11 - Unilateral primary osteoarthritis, right hip (2) Chronic right hip pain: Code(s): M25.551 - Pain in right hip; G89.29 - Other chronic pain Plan Patient is status post right hip steroid injection with ongoing 70% pain relief and improvement in her daily functioning, mobility, sleep and social interactions. Patient will continue to monitor her pain levels and notify our office when her pain returns to baseline. Patient is aware that she can not receive another injection in this area for another two months. Patient is aware to monitor for side effects. All questions were answered and the patient is in agreement of plan. Follow up as needed. Coding Level of Care Code Est Pt Level 3 (87751) Diagnoses Osteoarthritis of right hip M16.11 Chronic right hip pain M25.551; G89.29
[2023-02-26 11:01] VITALS: BP 120/72; PULSE 72; O2SAT 98; BMI 19.2
== END 2023-02-26 11:10 | disposition home or self-care (01) ==
PROVIDERS: PCP Internal Medicine; Visit Provider Nurse Practitioner Family
DX: M16.11 Unilateral primary osteoarthritis, right hip (principal); M25.551 Pain in right hip; G89.29 Other chronic pain
CPT/HCPCS: 99213

== ENCOUNTER → 2023-02-26 10:57 | Outpatient (BNVA) | payer MEDICARE, SELFPAY | PROVIDERS: PCP Internal Medicine; Visit Provider Nurse Practitioner Family | DX: M16.11 Unilateral primary osteoarthritis, right hip (principal); M25.551 Pain in right hip; G89.29 Other chronic pain | CPT/HCPCS: 99212 ==

== ENCOUNTER 2023-02-26 14:01 | Outpatient (REF) | payer SELFPAY ==
--- NOTE | 2023-02-27 12:52 | MHC.AU.HA3 ---
Hearing Instrument Follow-Up- Binaural Date of Visit: 02/26/23 Right Ear: Pieter, Model, Color, Serial Number: Kasandra Sanches [id number]-[id number] SN: [id number] Color: Sand Beige Disability Liaison Officer Repair Warranty: 06/01/2022 Disability Liaison Officer Loss and Damage Warranty: 06/01/2022 [facility] Service Plan: Battery Size: Rechargeable Wafer Slicer/Slim Tube: 2M Earmold/Dome/CShell/SlimTip:Small vented dome Type of Wax Guard: CeruShield Dispensed By: Unknown Date of Fitting: Per [employer], 02/22/2019 Left Ear: Pieter, Model, Color, Serial Number: Kasandra Sanches [id number]-RT SN: [id number] Color: Sand Beige Disability Liaison Officer Repair Warranty: 06/01/2022 Disability Liaison Officer Loss and Damage Warranty: 06/01/2022 [facility] Service Plan: Battery Size: Rechargeable Wafer Slicer/Slim Tube: 2M Earmold/Dome/CShell/SlimTip: Small vented dome Type of Wax Guard: CeruShield Dispensed By: Unknown Date of Fitting: Per [employer], 02/22/2019 Follow-Up Summary: Kimberly visited with her daughter Luz to have her hearing aids that were purchased several years ago programmed to her current hearing loss. Luz is concerned about the impact her hearing loss has on her especially given her dementia, though Kimberly is not particularly interested in wearing hearing aids. Programmed and verified to NAL-NL2 targets. Kimberly appeared to hear well in the office and was able to appropriately answer several questions that Luz asked her. Reviewed how to charge hearing aids. Insertion is somewhat tricky with Kimberly's ear canals but Luz states the staff at [facility] has agreed to put them in for her daily. Discussed the possibility of earmolds if staff struggle with insertion. Luz has a very long drive to get here so will call to schedule a follow-up when she knows she will be in the area. Recommendations: Recommendations: Please contact our clinic with any questions or concerns. Diagnosis Code(s): Primary Diagnosis: H90.3 Bilateral Sensorineural Hearing Loss Signature: Provider: Darrion Hagen, CCC-A
== END 2023-02-26 14:02 | disposition home or self-care (01) ==
LOC: HO.HAP 14:01
PROVIDERS: Visit Provider Internal Medicine
DX: Z46.1 Encounter for fitting and adjustment of hearing aid (principal); H90.3 Sensorineural hearing loss, bilateral
CPT/HCPCS: V5020

== ENCOUNTER → 2023-04-29 23:59 | Outpatient (BNV) | payer MEDICARE, SELFPAY ==
--- NOTE | 2023-04-30 18:30 | A.OFFVIS_ITS ---
Intake Intake Visit Reasons: Remote Device Check- [facility] Allergies No Known Allergies [No Known Allergies*] Allergy (Verified 02/26/23 11:00) PFSH Medical History Hearing loss Depression Multifactorial dementia [place] (hard of hearing) COVID-19 vaccine series completed Nail atrophy Cardiac pacemaker in situ Memory impairment Sick sinus syndrome Squamous cell carcinoma of left lower leg (~02/2017) Breast cancer, right breast Basal cell carcinoma of right forearm (~2004) Anxiety Osteoarthritis of left hip Insufficiency fracture of right femur Obturator hernia with gangrene Vitamin D deficiency Impaired fasting glucose Pure hypercholesterolemia Essential hypertension, benign Paroxysmal atrial fibrillation Forgetfulness Paroxysmal atrial fibrillation Sinus pause HTN (hypertension) Surgical History H/O colonoscopy Status post hip surgery (~05/14/16) Hx of squamous cell carcinoma excision (~02/2017) Hx of basal cell carcinoma excision (~2004) Status post placement of cardiac pacemaker (~10/08/19) History of hip surgery (~06/2013) Hx of excision of mass Hx of hernia repair History of lumpectomy of right breast (~08/2003) History of permanent cardiac pacemaker placement Family History Father No problems noted. Mother CVD (cardiovascular disease) CHF (congestive heart failure) Hypertension Brother Bone cancer Diabetes Social History Housing: Assisted Living Facility Are you a primary point of care technician to a significant other at home: No Do you presently have visiting nurse or other home services: No Alcohol intake: current Alcohol intake frequency: holidays/special occasions only Alcohol type: wine Patient Tobacco Use Status: Never used Tobacco e-Cigarette/Vaping Use: Never Used Second Hand Smoke Exposure: No service: No Current occupational status: retired Cognitive needs: Yes (memory impairment) Hearing needs: Yes Vision needs: No Office Procedures Cardiac Device Check Cardiac Device Check Details: Remote pacemaker report generated 04/29/2023. Pacemaker function is adequate. Mode switch noted 90% of the time. Increased burden of atrial fibrillation. [id number] Cardiac Device Interrogation, pacemaker Procedure code (CPT) selection complete Assessment & Plan Assessment & Plan (1) Cardiac pacemaker in situ: Code(s): Z95.0 - Presence of cardiac pacemaker Plan: See above Coding Level of Care Code Procedure Only Diagnoses Cardiac pacemaker in situ Z95.0 CPT Codes Cardiac Device Check - Cardiac Device 12: [id number] Cardiac Device Interrogation, pacemaker ([id number])
== END ==
PROVIDERS: PCP Internal Medicine; Visit Provider Internal Medicine Cardiovascular Disease
DX: I48.0 Paroxysmal atrial fibrillation (principal); Z95.0 Presence of cardiac pacemaker
CPT/HCPCS: 93294

== ENCOUNTER → 2023-07-29 23:59 | Outpatient (BNV) | payer MEDICARE, SELFPAY ==
--- NOTE | 2023-07-29 10:23 | MHC.OFFVIS ---
Intake Visit Reasons: Remote Device Check- [facility] Allergies No Known Allergies [No Known Allergies*] Allergy (Verified 02/26/23 11:00) PFSH Medical History Hearing loss Depression Multifactorial dementia [place] (hard of hearing) COVID-19 vaccine series completed Nail atrophy Cardiac pacemaker in situ Memory impairment Sick sinus syndrome Squamous cell carcinoma of left lower leg (~02/2017) Breast cancer, right breast Basal cell carcinoma of right forearm (~2004) Anxiety Osteoarthritis of left hip Insufficiency fracture of right femur Obturator hernia with gangrene Vitamin D deficiency Impaired fasting glucose Pure hypercholesterolemia Essential hypertension, benign Paroxysmal atrial fibrillation Forgetfulness Paroxysmal atrial fibrillation Sinus pause HTN (hypertension) Surgical History H/O colonoscopy Status post hip surgery (~05/14/16) Hx of squamous cell carcinoma excision (~02/2017) Hx of basal cell carcinoma excision (~2004) Status post placement of cardiac pacemaker (~10/08/19) History of hip surgery (~06/2013) Hx of excision of mass Hx of hernia repair History of lumpectomy of right breast (~08/2003) History of permanent cardiac pacemaker placement Family History Father No problems noted. Mother CVD (cardiovascular disease) CHF (congestive heart failure) Hypertension Brother Bone cancer Diabetes Social History Housing: Assisted Living Facility Are you a primary post acute care registered nurse to a significant other at home: No Do you presently have visiting nurse or other home services: No Alcohol intake: current Alcohol intake frequency: holidays/special occasions only Alcohol type: wine Patient Tobacco Use Status: Never used Tobacco e-Cigarette/Vaping Use: Never Used Second Hand Smoke Exposure: No service: No Current occupational status: retired Cognitive needs: Yes (memory impairment) Hearing needs: Yes Vision needs: No Office Procedures Cardiac Device Check Cardiac Device Check Details: Remote pacemaker report generated 07/29/2023. Pacemaker function is adequate. Increasing burden of atrial fibrillation noted [id number] Cardiac Device Interrogation, pacemaker Procedure code (CPT) selection complete Assessment & Plan Assessment & Plan (1) Status post placement of cardiac pacemaker: Onset Date: ~10/08/19 Comment: 09/2019 Code(s): Z95.0 - Presence of cardiac pacemaker Category: Surgical Plan: See above Coding Level of Care Code Procedure Only Diagnoses Status post placement of cardiac pacemaker Z95.0 CPT Codes Cardiac Device Check - Cardiac Device 12: [id number] Cardiac Device Interrogation, pacemaker ([id number])
== END ==
PROVIDERS: PCP Internal Medicine; Visit Provider Internal Medicine Cardiovascular Disease
DX: I48.91 Unspecified atrial fibrillation (principal); Z95.0 Presence of cardiac pacemaker
CPT/HCPCS: 93294

== ENCOUNTER 2023-08-31 13:19 | Outpatient (AMB) | payer MEDICARE, SELFPAY ==
--- NOTE | 2023-08-31 13:34 | A.OFFVIS_ITS ---
Vital Signs 08/31/23 13:35 Height 5 ft 4 in Weight 105 lb 13.15 oz BMI 18.2 BP 120/80 Blood Pressure Location Lt brachial Position Sitting Pulse 74 Intake Visit Reasons: 1 Year Follow up Intake Note: 1 year follow-up with ekg and [facility] Commercial Property Manager Required: No Gas Main Fitter Helper: Gas Main Fitter Helper Present Accompanied by: Child Allergies No Known Allergies [No Known Allergies*] Allergy (Verified 02/26/23 11:00) Medication List - Last Reconciled 08/31/23 by Caesar Lay MD acetaminophen ER (Tylenol Arthritis Pain) Take 2 tablets in AM and 1 tablet in the evening orally for hip pain 30 days apixaban 2.5 mg PO BID 90 days cholecalciferol (vitamin D3) 50 mcg PO Q2D 28 days diltiazem HCl CD 120 mg PO DAILY donepezil 10 mg PO BEDTIME 30 days escitalopram oxalate 20 mg PO DAILY 30 days hydrochlorothiazide 25 mg PO DAILY 90 days metoprolol succinate ER 100 mg PO BID 90 days HPI Comments Details: Kimberly comes for follow-up. she has no new cardiac symptoms. Noted on remote telemetry as she is having increasing burden of atrial fibrillation. Although she denies any symptoms of palpitations. No lightheadedness, dizziness, syncope. Denies any worsening shortness of breath, orthopnea, PND. Taking oral anticoagulation therapy regularly. No chest pain. Increasing issues with frailty as well as memory. She has no fall issues. She has hip pain for which she is indicating that she would benefit from some injection therapy especially her daughter. [facility] Medical History (Updated 08/31/23 @ 14:12 by Caesar Lay MD) Paroxysmal atrial fibrillation Paroxysmal atrial fibrillation Hearing loss Depression Multifactorial dementia [place] (hard of hearing) COVID-19 vaccine series completed Nail atrophy Cardiac pacemaker in situ Memory impairment Sick sinus syndrome Squamous cell carcinoma of left lower leg (~02/2017) Breast cancer, right breast Basal cell carcinoma of right forearm (~2004) Anxiety Osteoarthritis of left hip Insufficiency fracture of right femur Obturator hernia with gangrene Vitamin D deficiency Impaired fasting glucose Pure hypercholesterolemia Essential hypertension, benign Forgetfulness Sinus pause HTN (hypertension) Surgical History H/O colonoscopy Status post hip surgery (~05/14/16) Hx of squamous cell carcinoma excision (~02/2017) Hx of basal cell carcinoma excision (~2004) Status post placement of cardiac pacemaker (~10/08/19) History of hip surgery (~06/2013) Hx of excision of mass Hx of hernia repair History of lumpectomy of right breast (~08/2003) History of permanent cardiac pacemaker placement Family History Father No problems noted. Mother CVD (cardiovascular disease) CHF (congestive heart failure) Hypertension Brother Bone cancer Diabetes Social History Housing: Assisted Living Facility Are you a primary lawn care worker to a significant other at home: No Do you presently have visiting nurse or other home services: No Alcohol intake: current Alcohol intake frequency: holidays/special occasions only Alcohol type: wine Patient Tobacco Use Status: Never used Tobacco e-Cigarette/Vaping Use: Never Used Second Hand Smoke Exposure: No service: No Current occupational status: retired Cognitive needs: Yes (memory impairment) Hearing needs: Yes Vision needs: No Review of Systems Const Denies chills, Denies fatigue, Denies fever(s), Denies frequent falls, Denies weakness, Denies weight gain and Denies weight loss ENT Denies dizziness Card Denies chest pain, Denies leg edema, Denies lightheadedness, Denies palpitations, Denies dyspnea, Denies dyspnea on exertion, Denies orthopnea and Denies other (loss of consciousness) Resp Denies cough, Denies dyspnea and Denies dyspnea on exertion GI Denies hematochezia and Denies change in stool character Musc Denies abnormal gait, Denies muscle weakness, Denies numbness, Denies radiating pain into limb and Denies tingling Neuro Denies abnormal gait, Denies dizziness, Denies frequent falls, Denies numbness, Denies tingling and Denies weakness Endo Denies fatigue and Denies palpitations Physical Exam Vital Signs: Last Vital Signs Pulse 74 08/31/23 13:35 BP 120/80 08/31/23 13:35 BMI result Body Mass Index 18.2 Const General: cooperative, comfortable, no acute distress, alert and awake Nutritional Appearance: thin and other (Frail elderly woman) Orientation/consciousness: patient oriented x3 Limitations: ambulation with cane Neck Neck: Yes trachea midline, Yes supple and Yes no JVD Resp Effort & Inspection: normal respiratory effort Auscultation: clear to auscultation bilaterally Cardio Jugular venous distension: no JVD Palpation: normal PMI Rate: regular rate Rhythm: regular rhythm Heart sounds: S1 normal heart sound present, S2 normal heart sound present, no click, no gallops, Murmur heart sound present systolic and no rubs GI Auscultation: normal bowel sounds Skin General skin exam: no rashes or lesions noted and ecchymosis Neuro General: patient oriented x3 and no focal motor deficits Extrem General: Yes no clubbing, cyanosis or edema Office Procedures Cardiac Device Check Cardiac Device Check Details: dual-chamber [facility] pacemaker in place, reprogrammed to DDIR at 60 beats per minute. Ventricular pacing 19% of time. Atrial fibrillation burden about 69% of the time. Ventricular pacing thresholds are still elevated but with adequate safety margin. Battery life is at about 2.9-5.3 years. Pacing lead impedance is stable. [id number] Cardiac Device Check, pacemaker dual lead Procedure code (CPT) selection complete EKG Details: EKG shows atrial fibrillation with ventricularly paced rhythm with right bundle and left anterior fascicular block with LVH with nonspecific ST T wave changes [id number], Complete Assessment & Plan Assessment & Plan (1) Cardiac pacemaker in situ: Code(s): Z95.0 - Presence of cardiac pacemaker Category: Medical Plan: cardiac pacemaker in-situ for sick sinus syndrome. Pacemaker is working well. Follow remotely every 3 months. Follow up in the clinic in 1 year's time. (2) Persistent atrial fibrillation: Code(s): I48.19 - Other persistent atrial fibrillation Category: Medical Plan: Persistent rate control atrial fibrillation on dual therapy with Cardizem metoprolol. She is having increasing burden of atrial fibrillation without any overt symptoms or signs of cardiac decompensation. Continue rate control approach. Management was discussed with her and her kids were present at bedside. Continue full oral anticoagulation, currently on Eliquis 2.5 mg b.i.d.. Will follow up in the clinic in 1 year's time, sooner p.r.n.. Thank you for allowing me to partake in her care Coding Level of Care Code Est Pt Level 4 (17935) Diagnoses Cardiac pacemaker in situ Z95.0 Persistent atrial fibrillation I48.19 CPT Codes Cardiac Device Check - Cardiac Device 2: [id number] Cardiac Device Check, pacemaker dual lead ([id number]) EKG - CPT: 10749-Omczjwqyizmxsihms, Complete ([id number])
[2023-08-31 13:35] VITALS: BP 120/80; PULSE 74; BMI 18.2
== END 2023-08-31 14:05 | disposition home or self-care (01) ==
PROVIDERS: PCP Internal Medicine; Visit Provider Internal Medicine Cardiovascular Disease
DX: I48.19 Other persistent atrial fibrillation (principal); Z95.0 Presence of cardiac pacemaker
CPT/HCPCS: 93010; 93280; 99214

== ENCOUNTER → 2023-08-31 13:19 | Outpatient (BNVA) | payer MEDICARE, SELFPAY | PROVIDERS: PCP Internal Medicine; Visit Provider Internal Medicine Cardiovascular Disease | DX: Z45.018 Encounter for adjustment and management of other part of cardiac pacemaker (principal); I48.19 Other persistent atrial fibrillation | CPT/HCPCS: 93005; 93280; 99212 ==

== ENCOUNTER → 2023-10-28 23:59 | Outpatient (BNV) | payer MEDICARE, SELFPAY ==
--- NOTE | 2023-11-09 09:33 | A.OFFVIS_ITS ---
Intake Visit Reasons: Remote Device Check- [facility] Allergies No Known Allergies [No Known Allergies*] Allergy (Verified 02/26/23 11:00) PFSH Medical History (Updated 08/31/23 @ 14:12 by Caesar Lay MD) Paroxysmal atrial fibrillation Paroxysmal atrial fibrillation Hearing loss Depression Multifactorial dementia [place] (hard of hearing) COVID-19 vaccine series completed Nail atrophy Cardiac pacemaker in situ Memory impairment Sick sinus syndrome Squamous cell carcinoma of left lower leg (~02/2017) Breast cancer, right breast Basal cell carcinoma of right forearm (~2004) Anxiety Osteoarthritis of left hip Insufficiency fracture of right femur Obturator hernia with gangrene Vitamin D deficiency Impaired fasting glucose Pure hypercholesterolemia Essential hypertension, benign Forgetfulness Sinus pause HTN (hypertension) Surgical History H/O colonoscopy Status post hip surgery (~05/14/16) Hx of squamous cell carcinoma excision (~02/2017) Hx of basal cell carcinoma excision (~2004) Status post placement of cardiac pacemaker (~10/08/19) History of hip surgery (~06/2013) Hx of excision of mass Hx of hernia repair History of lumpectomy of right breast (~08/2003) History of permanent cardiac pacemaker placement Family History Father No problems noted. Mother CVD (cardiovascular disease) CHF (congestive heart failure) Hypertension Brother Bone cancer Diabetes Social History Housing: Assisted Living Facility Are you a primary transitional care liaison to a significant other at home: No Do you presently have visiting nurse or other home services: No Alcohol intake: current Alcohol intake frequency: holidays/special occasions only Alcohol type: wine Patient Tobacco Use Status: Never used Tobacco e-Cigarette/Vaping Use: Never Used Second Hand Smoke Exposure: No service: No Current occupational status: retired Cognitive needs: Yes (memory impairment) Hearing needs: Yes Vision needs: No Office Procedures Cardiac Device Check Cardiac Device Check Details: Remote pacemaker report generated October 27/2024. I was requested to read this report today. Total burden of atrial fibrillation 69% time. No symptoms reported. Pacemaker function is otherwise adequate [id number] Cardiac Device Interrogation, pacemaker Procedure code (CPT) selection complete Assessment & Plan Assessment & Plan (1) Status post placement of cardiac pacemaker: Onset Date: ~10/08/19 Comment: 09/2019 Code(s): Z95.0 - Presence of cardiac pacemaker Category: Medical Plan: See above Coding Level of Care Code Procedure Only Diagnoses Status post placement of cardiac pacemaker Z95.0 CPT Codes Cardiac Device Check - Cardiac Device 12: [id number] Cardiac Device Interrogation, pacemaker ([id number])
== END ==
PROVIDERS: PCP Internal Medicine; Visit Provider Internal Medicine Cardiovascular Disease
DX: I48.91 Unspecified atrial fibrillation (principal); Z95.0 Presence of cardiac pacemaker
CPT/HCPCS: 93294

== ENCOUNTER 2023-12-30 14:55 | Outpatient (AMB) | payer MEDICARE, SELFPAY ==
[2023-12-30 15:02] VITALS: BP 124/84; PULSE 60; O2SAT 96; BMI 19.1
--- NOTE | 2023-12-30 15:02 | A.OFFPC_ITS ---
Vital Signs 12/30/23 15:02 Height 5 ft 4 in Weight 111 lb 6 oz BMI 19.1 BP 124/84 Blood Pressure Location Lt brachial Position Sitting Pulse 60 Pulse Source Pulse Oximeter Pulse Oximetry (%) 96 Oxygen Delivery Method Room Air Intake Visit Reasons: Annual PE Flight Reservations Manager Required: No Accompanied by: Self / Same As Patient Allergies No Known Allergies [No Known Allergies*] Allergy (Verified 12/30/23 16:11) Medication List - Last Reconciled 12/30/23 by Reilly Ayon MD acetaminophen ER (Tylenol Arthritis Pain) Take 2 tablets in AM and 1 tablet in the evening orally for hip pain 30 days apixaban 2.5 mg PO BID 90 days cholecalciferol (vitamin D3) 50 mcg PO Q2D 28 days diltiazem HCl CD 120 mg PO DAILY donepezil 10 mg PO BEDTIME 30 days escitalopram oxalate 20 mg PO DAILY 30 days hydrochlorothiazide 25 mg PO DAILY 90 days metoprolol succinate ER 100 mg PO BID 90 days Tobacco use date assessed: 12/30/23 Fall risk assessment: No Falls in past year Last assessed Fall Risk: 12/30/23 Dental Screening Dental Screen Date: 12/30/23 Did you have a dental visit in the last 12 months?: No Did you have a dental problem in the last 6 months where you did not have access to dental care?: No Was dental information given to patient?: Patient has dentist HPI Annual PE HPI Details Patient comes in today for her annual physical examination - she was last seen by me over a year ago in July 2022 Her daughter states that she had to cancel an appointment earlier this year as patient did not have any means of transportation at the time and her next appointment was supposedly canceled by our office and she was rescheduled to today Patient is currently residing in assisted living at the [facility] in [place] and her daughter comes over to visit her whenever she can but she lives in [place] and has to go back and forth often Patient also has another son and daughter locally and all children are reportedly very supportive of patient Patient states that she feels okay - her daughter feels that patient's dementia (diagnosed as multifactorial dementia by neurology back in June 2021) seems to be stable over the past year She denies any headaches or dizziness Denies any chest pains, no increased shortness of breath No nausea/vomiting, no abdominal pain No change in bowel habits noted She denies any acute urinary symptoms She has had no follow-up labs done in the past year [facility] Medical History Paroxysmal atrial fibrillation Paroxysmal atrial fibrillation Hearing loss Depression Multifactorial dementia [place] (hard of hearing) COVID-19 vaccine series completed Nail atrophy Cardiac pacemaker in situ Memory impairment Sick sinus syndrome Squamous cell carcinoma of left lower leg (~02/2017) Breast cancer, right breast Basal cell carcinoma of right forearm (~2004) Anxiety Osteoarthritis of left hip Insufficiency fracture of right femur Obturator hernia with gangrene Vitamin D deficiency Impaired fasting glucose Pure hypercholesterolemia Essential hypertension, benign Forgetfulness Sinus pause HTN (hypertension) Surgical History H/O colonoscopy Status post hip surgery (~05/14/16) Hx of squamous cell carcinoma excision (~02/2017) Hx of basal cell carcinoma excision (~2004) Status post placement of cardiac pacemaker (~10/08/19) History of hip surgery (~06/2013) Hx of excision of mass Hx of hernia repair History of lumpectomy of right breast (~08/2003) History of permanent cardiac pacemaker placement Family History Father No problems noted. Mother CVD (cardiovascular disease) CHF (congestive heart failure) Hypertension Brother Bone cancer Diabetes Social History Housing: Assisted Living Facility Are you a primary critical care unit nurse to a significant other at home: No Do you presently have visiting nurse or other home services: No Alcohol intake: current Alcohol intake frequency: holidays/special occasions only Alcohol type: wine Patient Tobacco Use Status: Never used Tobacco e-Cigarette/Vaping Use: Never Used Second Hand Smoke Exposure: No service: No Current occupational status: retired Cognitive needs: Yes (memory impairment) Hearing needs: Yes Vision needs: No Questionnaire PHQ-9 Over the last 2 weeks, how often have you been bothered by any of the following problems? 1. Little interest or pleasure in doing things: not at all 2. Feeling down, depressed, or hopeless: not at all 3. Trouble falling or staying asleep, or sleeping too much: not at all 4. Feeling tired or having little energy: not at all 5. Poor appetite or overeating: not at all 6. Feeling bad about yourself - or that you are a failure or have let yourself or your family down: not at all 7. Trouble concentrating on things, such as reading the newspaper or watching television: not at all 8. Moving or speaking so slowly that other people could have noticed. Or the opposite - being so fidgety or restless that you have been moving around a lot more than usual: not at all 9. Thoughts that you would be better off or of hurting yourself in some way: not at all Total score: 0 Depression Screening Interpretation: Negative Depression Screening Done: Yes 43137 - PHQ-9 Billing: Yes Source: Developed by Drs. William Joyce, Alba Alfonso, Doug Hernandez and colleagues, with an educational bay from [employer]. Thrive Questionnaire Date Thrive assessed: 12/30/23 I am a: Patient What is your living situation today?: I have a steady place to live Within the past 12 months, did the food you bought not last and you didn't have the money to get more?: Never true Within the past 12 months, did you worry whether your food would run out before you got money to buy more?: Never true Do you have trouble paying for medicines?: No Do you have trouble getting transportation to medical appointments?: No Do you have trouble paying your heating and electricity bill?: No Do you have trouble taking care of your child, family member or friend?: No Do you have trouble with day-to-day activities such as bathing, preparing meals, shopping, managing finances, etc.?: Yes Are you currently unemployed and looking for a job?: No Are you interested in more education?: No Please select the resources that you would like help with: None Currently or been in a relationship where the following occur: No concerns reported THRIVE Score: 0 AUDIT C Alcohol Use Questionnaire (AUDIT-C) 1. How often do you have a drink containing alcohol?: Monthly or less 2. How many drinks containing alcohol do you have on a typical day when you are drinking?: 1 or 2 3. How often do you have six or more drinks on one occasion?: Never Total Score: 1 Score Reviewed/Action Taken: Yes ANNALISA-7 AMB Questionnaire ANNALISA-7 Date ANNALISA - 7 assessed: 12/30/23 Feeling nervous, anxious, or on edge: 0 = Not at all Not being able to stop or control worryin = Not at all Worrying too much about different things: 0 = Not at all Trouble relaxin = Not at all Being so restless that it is hard to sit still: 0 = Not at all Becoming easily annoyed or irritable: 0 = Not at all Feeling afraid as if something awful might happen: 0 = Not at all Total ANNALISA-7 score (0-4 normal; 5-9 mild; 10-14 moderate; 15-21 severe): 0 Source: Developed by Drs. William Joyce, Alba Alfonso, Doug Hernandez and colleagues, with an educational bay from [employer]. Review of Systems Const Details: information here is obtained in part through patient's daughter as patient has dementia and memory impairment Denies difficulty sleeping, Denies fatigue, Denies fever(s), Denies headache(s) and Denies weight loss Eyes Denies blurry vision, Denies change in vision, Denies irritation and Denies itchy eyes ENT Denies dysphagia (improved with modifications), Denies dizziness, Denies otalgia, Denies headache(s), Reports hearing loss (has hearing aids but does not like to wear them), Denies odynophagia and Denies sore throat Card Denies chest pain, Denies palpitations and Denies dyspnea Resp Denies chest congestion, Denies cough, Denies dyspnea and Denies wheezing GI Denies abdominal pain, Denies constipation, Denies dysphagia (improved with modifications), Denies heartburn, Denies diarrhea, Denies nausea, Denies odynophagia and Denies vomiting Denies difficulty voiding, Denies nocturia, Denies dysuria and Denies urinary urgency Musc Reports arthralgias (left hip - worsening), Reports limited range of motion (left hip) and Reports stiffness (left hip) Skin/Breast Denies rash Neuro Reports behavioral changes, Reports confusion (at times, per daughter; appears conversant and lucid today), Denies dizziness, Denies headache(s) and Reports memory loss Psych Denies anxiety, Reports behavioral changes, Reports confusion (at times, per daughter; appears conversant and lucid today) and Reports memory loss Endo Denies fatigue and Denies palpitations Roger/Lymph Denies easy bruising Aller/Immun Denies itchy eyes and Denies wheezing Physical exam (Primary Care) Vital Signs: Last Vital Signs Pulse 60 12/30/23 15:02 BP 124/84 12/30/23 15:02 Pulse Ox 96 12/30/23 15:02 Oxygen Delivery Method Room Air 12/30/23 15:02 BMI result Body Mass Index 19.1 Tobacco/Smoking Status: Tobacco use Status Tobacco use date assessed 12/30/23 12/30/23 15:04 Patient Tobacco Use Status Never used Tobacco 12/30/23 15:04 e-Cigarette/Vaping Use Never Used 12/30/23 15:04 PHQ-9: PHQ-9 Score PHQ-9: Total score 0 12/30/23 16:05 Depression Screening Interpretation: Negative Thrive Assessment: Date of Thrive Assessment Date Thrive assessed 12/30/23 12/30/23 15:04 Currently or been in a relationship where the following occur: No concerns reported Const General: confusion (at times, per daughter; appears conversant and lucid today) Orientation/consciousness: confusion (at times, per daughter; appears conversant and lucid today) HENMT Head: Yes normocephalic and Yes atraumatic Ears: TM's normal bilaterally and EAC's normal General nose exam: No nasal discharge present Face and sinus: Yes normal facial exam and Yes sinuses nontender Teeth and gingiva: dentition normal Throat: Yes posterior oropharynx normal and Yes tonsils normal (no TP congestion) Eyes Eyelids: Yes eyelids normal Conjunctivae: conjunctivae normal Pupils: Equal, round and reactive pupils present EOM: EOMs intact bilaterally Neck Neck: Yes no lymphadenopathy and Yes supple Thyroid: Thyroid normal Resp Auscultation: clear to auscultation bilaterally, no rales and no wheezes Cardio Rate: regular rate Rhythm: abnormal rhythm irregularly irregular Heart sounds: Murmur heart sound present systolic soft GI Palpation (GI): Soft to palpation and nontender Auscultation: normal bowel sounds General: Yes no CVA tenderness Back/Spine/Pelvis Back: no CVA tenderness Thoracic/Lumbar Spine: thoracic and lumbar spine normal to inspection Skin Lesions: no lesions Rashes: no rashes Neuro General: confusion (at times, per daughter; appears conversant and lucid today) Cranial nerves: Yes Equal, round and reactive pupils present Gait exam (Neuro): Normal gait present Extrem General: Yes no clubbing, cyanosis or edema Coding Level of Care Code Est Pt Prev Care >65y(27108) Diagnoses Annual physical exam Z00.00 Multifactorial dementia F03.90 Persistent atrial fibrillation I48.19 Sick sinus syndrome I49.5 Essential hypertension, benign I10 Pure hypercholesterolemia E78.00 Impaired fasting glucose R73.01 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 M87.9 Vitamin D deficiency E55.9 Hearing loss, unspecified hearing loss type, unspecified laterality H91.90 Hearing loss type: unspecified Laterality: unspecified laterality Anxiety F41.9 Reactive depression F32.9 Depression Type: reactive depression Additional Codes PHQ-9 - 61824 - PHQ-9 Billing: Yes ([id number]) Assessment & Plan Assessment & Plan (1) Annual physical exam: Code(s): Z00.00 - Encounter for general adult medical examination without abnormal findings Category: Medical Plan: Patient has not had any follow up labs done in a while now Have advised her daughter that I will just order some labs for her to be done before she comes back in 6 months and to make sure that patient is able to get these done at the time Have also advised that patient's current age, she no longer has to keep up with any other cancer screenings, including screening colonoscopy and annual mammography and cervical cancer screening (2) Multifactorial dementia: Code(s): F03.90 - Unspecified dementia, unspecified severity, without behavioral disturbance, psychotic disturbance, mood disturbance, and anxiety Category: Medical Plan: She was seen last by neurology in June 2021 and diagnosed with multifactorial dementia Patient's family feels that her dementia accelerated and got worse when her life partner unexpectedly in November 2021 She then reportedly started exhibiting behaviors of self-neglect, including hardly eating her meals, resulting in significant weight loss although all these seem to have stabilized and she has gained a pound or two now since her last visit She is currently still residing at assisted living in [place] ([facility]) and now appears to have adjusted to her currentl living situation She has not seen neurology in a while now and her daughters were encouraged to try to schedule a follow up appt with Dr. 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 and may be better characterized with an angiogram Will leave this up to neurology to determine if any follow up imaging studies are needed at this time (3) Persistent atrial fibrillation: Code(s): I48.19 - Other persistent atrial fibrillation Category: Medical Plan: Patient currently appears to be in atrial fibrillation She had a pacemaker inserted a couple of years ago due to sick sinus syndrome with sinus pause; cardiology continues to monitor her pacemaker remotely on a regular basis and they have noticed recently on remote telemetry that patient is having increasing burden of atrial fibrillation She denies any symptoms of palpitations, lightheadedness, dizziness, syncope, worsening shortness of breath, orthopnea, PND so no changes have been made to her current regimen Continue Metoprolol 100 mg BID and Diltiazem 120 mg QD for rate control, and Eliquis 2.5 mg BID for thromboembolism prophylaxis Follow up with cardiology as scheduled (4) Sick sinus syndrome: Comment: S/P insertion of dual-chamber (biventricular) permanent pacemaker on 10/08/2019 Code(s): I49.5 - Sick sinus syndrome Category: Medical Plan: S/P pacemaker insertion Follow up with cardiology as scheduled (5) Essential hypertension, benign: Code(s): I10 - Essential (primary) hypertension Category: Medical Plan: Reinforced low sodium diet - goal is systolic BP of at least 140 mm or less Continue Metoprolol 100 mg BID, Dilitiazem 120 mg QD and HCTZ 25 mg Q AM (6) Pure hypercholesterolemia: Code(s): E78.00 - Pure hypercholesterolemia, unspecified Category: Medical Plan: Reinforced low cholesterol diet Will have patient recheck her fasting lipids along with her other labs in 6 months (7) Impaired fasting glucose: Code(s): R73.01 - Impaired fasting glucose Category: Medical Plan: Her HgbA1c was normal at 5.6% when last checked last year; FBS was normal at 97 mg/dl on her most recent labs Reinforced low calorie diet (8) 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 Price a couple of years ago on 04/17/2021 but surgery was canceled due to her right leg wound at the time She was advised then that she will be rescheduled again for surgery once her leg wound is healed up completely but patient has since decided that she does not want to go for surgery anymore She has instead been going to pain management and states that the last injection that she had from pain management helped a lot She has not been back to pain management in a while now but reports experiencing increasing hip pain again recently and would like to go back and see pain management - have advised patient and her daughter that as she has been seen at pain management previously, they should not need another referral and all she has to do is call up pain management to schedule patient an appointment Follow up with orthopedics as scheduled or as needed (9) Vitamin D deficiency: Code(s): E55.9 - Vitamin D deficiency, unspecified Category: Medical Plan: Continue Vitamin D3 2000 units (50 mcg) QD (10) Hearing loss: Code(s): H91.90 - Unspecified hearing loss, unspecified ear Category: Medical Qualifiers: Hearing loss type: unspecified Laterality: unspecified laterality Qualified Code(s): H91.90 - Unspecified hearing loss, unspecified ear Plan: Patient used to have hearing aids but hardly used them (11) Anxiety: Code(s): F41.9 - Anxiety disorder, unspecified Category: Medical Plan: Continue Escitalopram 20 mg QD (12) Depression: Code(s): F32.A - Depression, unspecified Category: Medical Qualifiers: Depression Type: reactive depression Qualified Code(s): F32.9 - Major depressive disorder, single episode, unspecified Plan: Continue Escitalopram 20 mg QD and Mirtazapine 7.5 mg Q HS Plan Follow up in 6 months Orders: Orders Complete Blood Count Auto Diff 6 Months D64.9 - Anemia, unspecified TSH reflex Free T4 6 Months E78.00 - Pure hypercholesterolemia, unspecified Comprehensive [place]. Panel Fast 6 Months E78.00 - Pure hypercholesterolemia, unspecified Lipid Panel 6 Months E78.00 - Pure hypercholesterolemia, unspecified UA CC w/rflx Micro + Cult 6 Months R30.0 - Dysuria Vitamin D 25-OH Total 6 Months E55.9 - Vitamin D deficiency, unspecified
== END 2023-12-30 16:24 | disposition home or self-care (01) ==
PROVIDERS: PCP Internal Medicine; Visit Provider Internal Medicine
DX: Z00.00 Encounter for general adult medical examination without abnormal findings (principal); F03.90 Unspecified dementia, unspecified severity, without behavioral disturbance, psychotic disturbance, mood disturbance, and anxiety; I48.19 Other persistent atrial fibrillation; I49.5 Sick sinus syndrome; M87.9 Osteonecrosis, unspecified; F41.9 Anxiety disorder, unspecified; F32.9 Major depressive disorder, single episode, unspecified; I10 Essential (primary) hypertension; E78.00 Pure hypercholesterolemia, unspecified; R73.01 Impaired fasting glucose; E55.9 Vitamin D deficiency, unspecified; H91.90 Unspecified hearing loss, unspecified ear

== ENCOUNTER → 2023-12-30 14:55 | Outpatient (BNVA) | payer MEDICARE, SELFPAY | PROVIDERS: PCP Internal Medicine; Visit Provider Internal Medicine | DX: Z00.00 Encounter for general adult medical examination without abnormal findings (principal); F03.90 Unspecified dementia, unspecified severity, without behavioral disturbance, psychotic disturbance, mood disturbance, and anxiety; I48.19 Other persistent atrial fibrillation; I49.5 Sick sinus syndrome; I10 Essential (primary) hypertension; E78.00 Pure hypercholesterolemia, unspecified; R73.01 Impaired fasting glucose; M87.9 Osteonecrosis, unspecified; E55.9 Vitamin D deficiency, unspecified; H91.90 Unspecified hearing loss, unspecified ear; F41.9 Anxiety disorder, unspecified; F32.9 Major depressive disorder, single episode, unspecified | CPT/HCPCS: 96127; 99397 ==

== ENCOUNTER → 2024-01-27 23:59 | Outpatient (BNV) | payer MEDICARE, SELFPAY ==
--- NOTE | 2024-02-11 16:17 | MHC.OFFVIS ---
Intake Visit Reasons: Remote Device Check- [facility] Allergies No Known Allergies [No Known Allergies*] Allergy (Verified 12/30/23 16:11) PFSH Medical History (Updated 02/02/24 @ 14:37 by Sophia Khan RN) Depression Multifactorial dementia [place] (hard of hearing) Nail atrophy Cardiac pacemaker in situ Memory impairment Sick sinus syndrome Squamous cell carcinoma of left lower leg (~02/2017) Breast cancer, right breast Basal cell carcinoma of right forearm (~2004) Anxiety Osteoarthritis of left hip Insufficiency fracture of right femur Obturator hernia with gangrene Vitamin D deficiency Impaired fasting glucose Pure hypercholesterolemia Essential hypertension, benign Forgetfulness Paroxysmal atrial fibrillation Sinus pause HTN (hypertension) Surgical History (Updated 02/02/24 @ 14:36 by Sophia Khan RN) H/O colonoscopy Status post hip surgery (~05/14/16) Hx of squamous cell carcinoma excision (~02/2017) Hx of basal cell carcinoma excision (~2004) History of hip surgery (~06/2013) Hx of excision of mass Hx of hernia repair History of lumpectomy of right breast (~08/2003) History of permanent cardiac pacemaker placement Family History Father No problems noted. Mother CVD (cardiovascular disease) CHF (congestive heart failure) Hypertension Brother Bone cancer Diabetes Social History Housing: Assisted Living Facility Are you a primary healthcare risk control consultant to a significant other at home: No Do you presently have visiting nurse or other home services: No Alcohol intake: current Alcohol intake frequency: holidays/special occasions only Alcohol type: wine Patient Tobacco Use Status: Never used Tobacco e-Cigarette/Vaping Use: Never Used Second Hand Smoke Exposure: No service: No Current occupational status: retired Cognitive needs: Yes (memory impairment) Hearing needs: Yes Vision needs: No Office Procedures Cardiac Device Check Cardiac Device Check Details: Remote pacemaker report generated 01/27/2024. Pacemaker function is adequate. Total burden of atrial fibrillation at 24% [id number] Cardiac Device Interrogation, pacemaker Procedure code (CPT) selection complete Assessment & Plan Assessment & Plan (1) Status post placement of cardiac pacemaker: Onset Date: ~10/08/19 Comment: 09/2019 Code(s): Z95.0 - Presence of cardiac pacemaker Category: Medical Plan: See above Coding Level of Care Code Procedure Only Diagnoses Status post placement of cardiac pacemaker Z95.0 CPT Codes Cardiac Device Check - Cardiac Device 12: [id number] Cardiac Device Interrogation, pacemaker ([id number])
== END ==
PROVIDERS: PCP Internal Medicine; Visit Provider Internal Medicine Cardiovascular Disease
DX: I48.91 Unspecified atrial fibrillation (principal); Z95.0 Presence of cardiac pacemaker
CPT/HCPCS: 93294

== ENCOUNTER 2024-03-04 07:55 | Day surgery (SDC) | payer MEDICARE, SELFPAY ==
--- NOTE | 2024-03-03 13:17 | HO.ANESPROP2 ---
Documented by User: Rosalina Mullins NP 03/03/24 13:17 HPI - Anesthesia Eval Consult details Narrative: 88yo F for Right Intra-Articular Hip Steroid Injection, 03/04/24 s/p same 01/2023 with TIVA Eliquis for afib Pacer in situ for SSS Follows [facility] [place] cardiology. Last office visit 08/2023. Stable without symptoms. 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 (Acute) Preop cardiovascular exam (Acute) NSVT (nonsustained ventricular tachycardia) (Acute) Status post fall (Acute) Status post placement of cardiac pacemaker (Acute ~10/08/19) Depression (Acute) Multifactorial dementia (Acute) Nail atrophy (Acute) Cardiac pacemaker in situ (Acute) Memory impairment (Acute) Sick sinus syndrome (Acute) Anxiety (Acute) Osteoarthritis of left hip (Acute) Vitamin D deficiency (Acute) Impaired fasting glucose (Acute) Pure hypercholesterolemia (Acute) Essential hypertension, benign (Acute) Forgetfulness (Acute) Sinus pause (Acute) HTN (hypertension) (Acute) Past Medical History Medical History (Updated 02/02/24 @ 14:37 by Sophia Khan RN) Depression Multifactorial dementia [place] (hard of hearing) Nail atrophy Cardiac pacemaker in situ Memory impairment Sick sinus syndrome Squamous cell carcinoma of left lower leg (~02/2017) Breast cancer, right breast Basal cell carcinoma of right forearm (~2004) Anxiety Osteoarthritis of left hip Insufficiency fracture of right femur Obturator hernia with gangrene Vitamin D deficiency Impaired fasting glucose Pure hypercholesterolemia Essential hypertension, benign Forgetfulness Paroxysmal atrial fibrillation Sinus pause HTN (hypertension) Family History Family History Father No problems noted. Mother CVD (cardiovascular disease) CHF (congestive heart failure) Hypertension Brother Bone cancer Diabetes Family history of problems with anesthesia: No Surgical History Surgical History (Updated 02/02/24 @ 14:36 by Sophia Khan RN) H/O colonoscopy Status post hip surgery (~05/14/16) Hx of squamous cell carcinoma excision (~02/2017) Hx of basal cell carcinoma excision (~2004) History of hip surgery (~06/2013) Hx of excision of mass Hx of hernia repair History of lumpectomy of right breast (~08/2003) History of permanent cardiac pacemaker placement History of Problems with Anesthesia: No Social History Social History Housing: Assisted Living Facility Are you a primary pharmacy customer care specialist to a significant other at home: No Do you presently have visiting nurse or other home services: No Alcohol intake: current Alcohol intake frequency: holidays/special occasions only Alcohol type: wine Patient Tobacco Use Status: Never used Tobacco e-Cigarette/Vaping Use: Never Used Second Hand Smoke Exposure: No Advance Directives: No Advance Directives Information Provided: Yes service: No Current occupational status: retired Cognitive needs: Yes (memory impairment) Hearing needs: Yes Vision needs: No Meds Allergies Allergy/AdvReac Type Severity Reaction Status Date / Time No Known Allergies Allergy Verified 12/30/23 16:11 [No Known Allergies*] Exam Height,Weight and Vital Signs: Height 5 ft 4 in Weight 50.802 kg Narrative Narrative: Cardiac Device Check 08/2023 Details: dual-chamber [employer] pacemaker in place, reprogrammed to DDIR at 60 beats per minute. Ventricular pacing 19% of time. Atrial fibrillation burden about 69% of the time. Ventricular pacing thresholds are still elevated but with adequate safety margin. Battery life is at about 2.9-5.3 years. Pacing lead impedance is stable. 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 with LVH with nonspecific ST T wave changes Assessment and Plan Assessment Anesthesia Assessment: Chart Reviewed Final Anesthetic Review Family History of Problems with Anesthesia: No History of Problems with Anesthesia: No Documented by User: Kemal Choi MD 03/04/24 08:45 [facility] Past Medical History Medical History (Updated 02/02/24 @ 14:37 by Sophia Khan, RN) Depression Multifactorial dementia [place] (hard of hearing) Nail atrophy Cardiac pacemaker in situ Memory impairment Sick sinus syndrome Squamous cell carcinoma of left lower leg (~02/2017) Breast cancer, right breast Basal cell carcinoma of right forearm (~2004) Anxiety Osteoarthritis of left hip Insufficiency fracture of right femur Obturator hernia with gangrene Vitamin D deficiency Impaired fasting glucose Pure hypercholesterolemia Essential hypertension, benign Forgetfulness Paroxysmal atrial fibrillation Sinus pause HTN (hypertension) Family History Family History Father No problems noted. Mother CVD (cardiovascular disease) CHF (congestive heart failure) Hypertension Brother Bone cancer Diabetes Surgical History Surgical History (Updated 02/02/24 @ 14:36 by Sophia Khan RN) H/O colonoscopy Status post hip surgery (~05/14/16) Hx of squamous cell carcinoma excision (~02/2017) Hx of basal cell carcinoma excision (~2004) History of hip surgery (~06/2013) Hx of excision of mass Hx of hernia repair History of lumpectomy of right breast (~08/2003) History of permanent cardiac pacemaker placement Social History Social History Housing: Assisted Living Facility Are you a primary pharmacy customer care specialist to a significant other at home: No Do you presently have visiting nurse or other home services: No Alcohol intake: current Alcohol intake frequency: holidays/special occasions only Alcohol type: wine Patient Tobacco Use Status: Never used Tobacco e-Cigarette/Vaping Use: Never Used Second Hand Smoke Exposure: No Advance Directives: No Advance Directives Information Provided: Yes service: No Current occupational status: retired Cognitive needs: Yes (memory impairment) Hearing needs: Yes Vision needs: No Meds Allergies Allergy/AdvReac Type Severity Reaction Status Date / Time No Known Allergies Allergy Verified 12/30/23 16:11 [No Known Allergies*] Exam Airway Mallampati Class: II TM Dist: >3cm Neck ROM: Full Assessment and Plan Assessment Anesthesia Assessment: Anesthesia Plan Discussed Final Anesthetic Review NPO: Yes ASA Class: III Final Preanesthetic Review: No Changes in Pt Med Stat, Meds/Allgs Chart Reviewed, Consent Obtained/Reviewed and Anes Risks/Benef Reviewed Patient Risk: Intermediate Procedure Risk: Low Anesthetic Plan Anesthetic Plan: TIVA Disposition: Standard PACU
[2024-03-04] VITALS (7 sets, daily range): BP systolic 129–182; BP diastolic 57–88; PULSE 59–60; RESP 14–17; TEMP 36.4–36.7; O2SAT 95–98; BMI 19.5
--- NOTE | ~2024-03-04 | FL_ITS ---
EXAMINATION: FLUOROSCOPY GUIDANCE FOR NEEDLE PLACEMENT CLINICAL INFORMATION: hip injection right COMPARISON: None available. TECHNIQUE: Fluoroscopy guidance was provided to referring physician's in the OR. No radiologist present. FINDINGS/ FL/FL guidance in OR IMPRESSION: There is a single images revealing needle positioned along the right hip joint. There is mild deformity of right femoral head with severe loss of right hip joint space. FLUOROSCOPY TIME: 13.9 seconds DOSE AREA PRODUCT: 0.497 uGy-m2 (microgray-meter squared) Electronically signed by: Haris Vann MD 03/09/2024 07:49 AM [facility]
--- NOTE | 2024-03-04 08:33 | P.HPSUR_ITS ---
Pre-Procedural Eval Section A - 24 Hr Update-Section A only Date of Service: 03/04/24 The patient is an INPATIENT: No Changes since office visit: Yes Patient answered all questions The patient has been examined within 24 hours of the surgical procedure. The History & Physical has been completed within 30 days and I have reviewed it.: No Section B - Complete if H&P > 30 days Chief Complaint: Unilateral primary osteoarthritis,hip,chronic pain Details of Present Illness: as above Relevant Family History (Specify if Yes): No Relevant Social History: None Present Medications: see Short Stay Collaborative assessment Medical History: Significant History History of Previous Operations: No relevant previous surgery Allergies: Allergies Allergy/AdvReac Type Severity Reaction Status Date / Time No Known Allergies Allergy Verified 12/30/23 16:11 [No Known Allergies*] Review of Systems Sugical H&P ROS: Negative: Constitution, Respiratory, Neurological, Hem-Onc, Allergic/Immunologic, Gastrointestinal, Genitourinary, Integumentary, Endocrine and Eyes/Ears/Nose/Throat and Yes, Specify: Cardiovascular (HTN, Nonsustained V- tach history of), Psychiatric (Dementia, depression.) and Musculoskeletal (Hip osteoarthritis) Exam Surgical H&P Exam: Normal: HEENT, Normal: Heart, Normal: Lungs, Normal: Extremities, Normal: Abdomen, Normal: Skin and Normal: Neurological Plan Diagnosis/Plan: Unchanged I have reviewed the history and physical and performed a pertinent physical examination on my patient. No changes have occurred unless specified. Time Spent With Patient Time: Total time managing care of this patient today ____ minutes.
[2024-03-04] MEDS: Lactated Ringers 1,000 ML 100 ML IVCONT (08:55)
--- NOTE | 2024-03-04 09:40 | PM.OP ---
Brief Operative Note Date of Service: 03/04/24 Pre-op diagnosis: Right hip pain, right hip osteoarthritis Post-op diagnosis: same Procedure: Right hip steroid injection Implants: None Surgeon: Martin Zamudio MD Was an Childhood Development Teacher used for this Procedure?: No Estimated blood loss (mL): 0 Condition: stable Disposition: PACU
--- NOTE | 2024-03-04 09:41 | P.OP_ITS ---
Operative Note Operative Note Date of Service: 03/04/24 Narrative: Right hip steroid injection. Oscar is very pleasant 88 years old demented female who presented in my office with complains on pain in right hip with severe right hip osteoarthritis demonstrated on the hip x-ray. She came today to the operating room to receive intra-articular hip steroid injection. The patient and her daughter were explained informed consent, risks and benefits were explained, they were delineated as bleeding infection and peripheral nerve damage. After that patient was taken to the operating room and was positioned on left lateral decubitus on the operating table. ASA monitors were applied and patient was deeply sedated. Time-out was performed delineating name and date of of the patient, nature of the procedure, side and site of the procedure risk of fire needs for antibiotic prophylaxis which is none. The right hip area was prepped with ChloraPrep and draped with sterile utility towels. C-arm was brought over the operating field and lateral picture of the right hip was demonstrated on the screen. Few mm above the level of the tip of the trochanter of the right hip injection of the mixture of local anesthetic lidocaine 2% and ropivacaine 0.5% one-to-one was injected to anesthetize the skin. After that 22 gauge 5 in needle was inserted through the skin wheal and it was started to advanced to were the silhouette of the right hip alongside the direction of the patient's femoral neck. The advancement was performed on anterior posterior and lateral views. When on anterior posterior view the needle entered the silhouette of the hip joint injection of the contrast was performed delineating arthrogram. After that injection of the treatment medicine containing ropivacaine 0.5% 4 mL mixed with Kenalog 40 mg was performed in the joint. Upon completion of the injection needle was removed sterile Band- Aid was applied. The patient tolerated procedure well. She was taken outside of the operating room to recovery room where she recovered uneventfully.
== END 2024-03-04 10:50 | disposition home or self-care (01) ==
PROVIDERS: PCP Internal Medicine; Visit Provider Anesthesiology
PROC: (CPT 20610; principal; 2024-03-04 09:00)
DX: M16.11 Unilateral primary osteoarthritis, right hip (principal); G89.29 Other chronic pain; M25.551 Pain in right hip; M85.80 Other specified disorders of bone density and structure, unspecified site; M54.50 Low back pain, unspecified; R26.81 Unsteadiness on feet; F03.90 Unspecified dementia, unspecified severity, without behavioral disturbance, psychotic disturbance, mood disturbance, and anxiety; I48.0 Paroxysmal atrial fibrillation; I49.5 Sick sinus syndrome; Z95.0 Presence of cardiac pacemaker; I10 Essential (primary) hypertension; Z85.3 Personal history of malignant neoplasm of breast; Z85.828 Personal history of other malignant neoplasm of skin; H91.90 Unspecified hearing loss, unspecified ear; Z79.01 Long term (current) use of anticoagulants; Z98.890 Other specified postprocedural states
CPT/HCPCS: 20610; J0131; J1100; J2003; J2250; J2405; J2704; J2795; J3010; J3301; Q9967

== ENCOUNTER → 2024-03-04 07:55 | Outpatient (BNV) | payer MEDICARE, SELFPAY | PROVIDERS: PCP Internal Medicine; Visit Provider Anesthesiology | DX: M25.551 Pain in right hip (principal); M16.11 Unilateral primary osteoarthritis, right hip | CPT/HCPCS: 20610; 77002 ==

== ENCOUNTER → 2024-04-27 23:59 | Outpatient (BNV) | payer MEDICARE, SELFPAY ==
--- NOTE | 2024-05-03 12:27 | MHC.OFFVIS ---
Intake Visit Reasons: Remote Device Check- [facility] Allergies No Known Allergies [No Known Allergies*] Allergy (Verified 03/04/24 08:48) PFSH Medical History Depression Multifactorial dementia [place] (hard of hearing) Nail atrophy Cardiac pacemaker in situ Memory impairment Sick sinus syndrome Squamous cell carcinoma of left lower leg (~02/2017) Breast cancer, right breast Basal cell carcinoma of right forearm (~2004) Anxiety Osteoarthritis of left hip Insufficiency fracture of right femur Obturator hernia with gangrene Vitamin D deficiency Impaired fasting glucose Pure hypercholesterolemia Essential hypertension, benign Forgetfulness Paroxysmal atrial fibrillation Sinus pause HTN (hypertension) Surgical History H/O colonoscopy Status post hip surgery (~05/14/16) Hx of squamous cell carcinoma excision (~02/2017) Hx of basal cell carcinoma excision (~2004) History of hip surgery (~06/2013) Hx of excision of mass Hx of hernia repair History of lumpectomy of right breast (~08/2003) History of permanent cardiac pacemaker placement Family History Father No problems noted. Mother CVD (cardiovascular disease) CHF (congestive heart failure) Hypertension Brother Bone cancer Diabetes Social History Housing: Assisted Living Facility Are you a primary primary care pediatrician to a significant other at home: No Do you presently have visiting nurse or other home services: No Alcohol intake: current Alcohol intake frequency: holidays/special occasions only Alcohol type: wine Patient Tobacco Use Status: Never used Tobacco e-Cigarette/Vaping Use: Never Used Second Hand Smoke Exposure: No Use of substances other than those prescribed or required for medical reasons: No Are you DNR?: No Advance Directives: No Advance Directives Information Provided: Yes service: No Current occupational status: retired Cognitive needs: Yes (memory impairment) Hearing needs: Yes Vision needs: No Office Procedures Cardiac Device Check Cardiac Device Check Details: Remote pacemaker report generated 04/27/2024. Pacemaker function is adequate [id number] Cardiac Device Interrogation, pacemaker Procedure code (CPT) selection complete Assessment & Plan Assessment & Plan (1) Cardiac pacemaker in situ: Code(s): Z95.0 - Presence of cardiac pacemaker Category: Medical Plan: See above Coding Level of Care Code Procedure Only Diagnoses Cardiac pacemaker in situ Z95.0 CPT Codes Cardiac Device Check - Cardiac Device 12: [id number] Cardiac Device Interrogation, pacemaker ([id number])
== END ==
PROVIDERS: PCP Internal Medicine; Visit Provider Internal Medicine Cardiovascular Disease
DX: Z45.018 Encounter for adjustment and management of other part of cardiac pacemaker (principal)
CPT/HCPCS: 93294

== ENCOUNTER 2024-05-16 16:43 | Outpatient (AMB) | payer MEDICARE, SELFPAY ==
--- NOTE | 2024-05-16 16:44 | A.OFFPC_ITS ---
Intake Visit Reasons: VNA face to face Nurse Staff Required: No Accompanied by: Self / Same As Patient Allergies No Known Allergies [No Known Allergies*] Allergy (Verified 05/16/24 17:28) Medication List - Last Reconciled 05/16/24 by Reilly Ayon MD acetaminophen ER (Tylenol Arthritis Pain) Take 2 tablets in AM and 1 tablet in the evening orally for hip pain 30 days apixaban 2.5 mg PO BID 90 days cholecalciferol (vitamin D3) 50 mcg PO Q2D 28 days diltiazem HCl CD 120 mg PO DAILY donepezil 10 mg PO BEDTIME 30 days doxycycline hyclate 100 mg PO BID 7 days escitalopram oxalate 20 mg PO DAILY 30 days hydrochlorothiazide 25 mg PO DAILY 90 days metoprolol succinate ER 100 mg PO BID 90 days Tobacco use date assessed: 05/16/24 Fall risk assessment: No Falls in past year Last assessed Fall Risk: 05/16/24 Dental Screening Dental Screen Date: 05/16/24 Did you have a dental visit in the last 12 months?: No Did you have a dental problem in the last 6 months where you did not have access to dental care?: No Was dental information given to patient?: No HPI VNA face to face HPI Details Patient's follow up visit / consultation today is done over video conference (iPhone/iPad/Mang?rKart/Winchannel) - this is a TELEHEALTH visit Patient's current medications have been reviewed and verified with patient and/or caregiver/proxy and have been updated accordingly in the medication list Today's visit is done to fulfill VNA's request for a recent stfw-go-mllp visit with the patient as a requirement for them to be able to accept and process patient's recent VNA referral for wound care services Patient is currently residing in an assisted-living facility ([facility]) and per her son, she reportedly has a deep quarter-sized open wound on the posterior aspect of her distal left lower leg for the past few days Her son states that they have been trying to dress the wound on their own recently as best as they can They have requested for a referral to VNA late last week for wound care services and patient was also started on oral Doxycycline 100 mg BID over the weekend and she is currently still taking this States that there is some pain on and around the wound on her left leg but the pain is minimal and tolerable There also appears to be a slight oozing from the wound but there is no increased discharge noted Patient states that she feels okay otherwise She denies any fever or chills; denies any headaches or dizziness Denies any chest pains, no shortness of breath No nausea/vomiting, no abdominal pain No change in bowel habits noted left leg distal 3rd posteriorly x few days - slight oozing PFSH Medical History Depression Multifactorial dementia [place] (hard of hearing) Nail atrophy Cardiac pacemaker in situ Memory impairment Sick sinus syndrome Squamous cell carcinoma of left lower leg (~02/2017) Breast cancer, right breast Basal cell carcinoma of right forearm (~2004) Anxiety Osteoarthritis of left hip Insufficiency fracture of right femur Obturator hernia with gangrene Vitamin D deficiency Impaired fasting glucose Pure hypercholesterolemia Essential hypertension, benign Forgetfulness Paroxysmal atrial fibrillation Sinus pause HTN (hypertension) Surgical History H/O colonoscopy Status post hip surgery (~05/14/16) Hx of squamous cell carcinoma excision (~02/2017) Hx of basal cell carcinoma excision (~2004) History of hip surgery (~06/2013) Hx of excision of mass Hx of hernia repair History of lumpectomy of right breast (~08/2003) History of permanent cardiac pacemaker placement Family History Father No problems noted. Mother CVD (cardiovascular disease) CHF (congestive heart failure) Hypertension Brother Bone cancer Diabetes Social History Housing: Assisted Living Facility Are you a primary acute care registered nurse to a significant other at home: No Do you presently have visiting nurse or other home services: No Alcohol intake: current Alcohol intake frequency: holidays/special occasions only Alcohol type: wine Patient Tobacco Use Status: Never used Tobacco e-Cigarette/Vaping Use: Never Used Second Hand Smoke Exposure: No service: No Current occupational status: retired Cognitive needs: Yes (memory impairment) Hearing needs: Yes Vision needs: No Questionnaire PHQ-9 Over the last 2 weeks, how often have you been bothered by any of the following problems? 1. Little interest or pleasure in doing things: not at all 2. Feeling down, depressed, or hopeless: not at all 3. Trouble falling or staying asleep, or sleeping too much: not at all 4. Feeling tired or having little energy: not at all 5. Poor appetite or overeating: not at all 6. Feeling bad about yourself - or that you are a failure or have let yourself or your family down: not at all 7. Trouble concentrating on things, such as reading the newspaper or watching television: not at all 8. Moving or speaking so slowly that other people could have noticed. Or the opposite - being so fidgety or restless that you have been moving around a lot more than usual: not at all 9. Thoughts that you would be better off or of hurting yourself in some way: not at all Total score: 0 Depression Screening Interpretation: Negative Depression Screening Done: Yes 24560 - PHQ-9 Billing: Yes Source: Developed by Drs. William Joyce, Alba Alfonso, Doug Hernandez and colleagues, with an educational bay from [place]. Thrive Questionnaire Date Thrive assessed: 05/16/24 I am a: Patient What is your living situation today?: I have a steady place to live Within the past 12 months, did the food you bought not last and you didn't have the money to get more?: Never true Within the past 12 months, did you worry whether your food would run out before you got money to buy more?: Never true Do you have trouble paying for medicines?: No Do you have trouble getting transportation to medical appointments?: No Do you have trouble paying your heating and electricity bill?: No Do you have trouble taking care of your child, family member or friend?: No Do you have trouble with day-to-day activities such as bathing, preparing meals, shopping, managing finances, etc.?: Yes Are you currently unemployed and looking for a job?: No Are you interested in more education?: No Please select the resources that you would like help with: None Currently or been in a relationship where the following occur: No concerns reported THRIVE Score: 0 AUDIT C Alcohol Use Questionnaire (AUDIT-C) 1. How often do you have a drink containing alcohol?: Monthly or less 2. How many drinks containing alcohol do you have on a typical day when you are drinking?: 1 or 2 3. How often do you have six or more drinks on one occasion?: Never Total Score: 1 Score Reviewed/Action Taken: Yes ANNALISA-7 AMB Questionnaire ANNALISA-7 Date ANNALISA - 7 assessed: 05/16/24 Feeling nervous, anxious, or on edge: 0 = Not at all Not being able to stop or control worryin = Not at all Worrying too much about different things: 0 = Not at all Trouble relaxin = Not at all Being so restless that it is hard to sit still: 0 = Not at all Becoming easily annoyed or irritable: 0 = Not at all Feeling afraid as if something awful might happen: 0 = Not at all Total ANNALISA-7 score (0-4 normal; 5-9 mild; 10-14 moderate; 15-21 severe): 0 Source: Developed by Drs. William Joyce, Alba Alfonso, Doug Hernandez and colleagues, with an educational bay from [place]. Review of Systems Const Details: information here is obtained mostly through patient's son over video conference today as patient has dementia and some memory impairment Denies chills, Denies difficulty sleeping, Denies fatigue, Denies fever(s) and Denies headache(s) ENT Denies dysphagia (improved with modifications), Denies dizziness, Denies otalgia, Denies headache(s), Reports hearing loss (has hearing aids but does not like to wear them), Denies neck pain, Denies odynophagia and Denies sore throat Card Denies chest pain, Denies palpitations and Denies dyspnea Resp Denies chest congestion, Denies cough and Denies dyspnea GI Denies abdominal pain, Denies constipation, Denies dysphagia (improved with modifications), Denies heartburn, Denies diarrhea, Denies nausea, Denies odynophagia and Denies vomiting Denies difficulty voiding, Denies nocturia, Denies dysuria and Denies urinary urgency Musc Reports arthralgias (left hip - worsening), Reports limited range of motion (left hip), Denies neck pain and Reports stiffness (left hip) Skin/Breast Details: (+) deep quarter-sized open wound with some oozing noted over the posterior aspect of the distal left lower leg Denies rash Neuro Denies dizziness, Denies headache(s) and Reports memory loss Psych Denies anxiety and Reports memory loss Endo Denies fatigue and Denies palpitations Roger/Lymph Denies easy bruising Physical exam (Primary Care) Vital Signs: Physical examination is not performed as visit / consultation today is done over videoconference - Telehealth visit All physical findings indicated here, if present, are as per patient's and / or caregivers / proxy's report and visual inspection over videoconference, if appropriate or applicable Tobacco/Smoking Status: Tobacco use Status Tobacco use date assessed 05/16/24 05/16/24 16:46 Patient Tobacco Use Status Never used Tobacco 05/16/24 16:46 e-Cigarette/Vaping Use Never Used 05/16/24 16:46 PHQ-9: PHQ-9 Score PHQ-9: Total score 0 05/16/24 17:32 Depression Screening Interpretation: Negative Thrive Assessment: Date of Thrive Assessment Date Thrive assessed 05/16/24 05/16/24 16:46 Currently or been in a relationship where the following occur: No concerns reported Telehealth Telehealth Telehealth Platform: Telephone ([email or web address]) Location of provider rendering services: practice address Location of patient: address on file Patient Identification confirmed using: Name, : Yes Telehealth method: video (Iphone/[email or web address]) Patient verbally consented to treatment: Yes Patient verbally consented to billing insurance company: Yes Patient informed of any privacy concerns related to visit: Yes Minutes spent on Phone/Video with Pt.: 17 Coding Level of Care Code Tele Est Pt Level 3 (74354) Diagnoses Wound of left lower extremity, initial encounter S81.802A Encounter type: initial encounter Additional Codes PHQ-9 - 40846 - PHQ-9 Billing: Yes ([id number]) Assessment & Plan Assessment & Plan (1) Leg wound, left: Code(s): S81.802A - Unspecified open wound, left lower leg, initial encounter Category: Medical Qualifiers: Encounter type: initial encounter Qualified Code(s): S81.802A - Unspecified open wound, left lower leg, initial encounter Plan: Patient currently has a quarter-sized open wound on the posterior aspect of her distal left lower leg A VNA referral has been placed for wound care services this is currently still in process - today's [id number] telehealth visit is done to help fulfill insurance requirement for this referral Continue Doxycycline 100 mg BID for now pending VNA evaluation Plan Follow-up as scheduled in June 2024
== END 2024-05-16 17:58 | disposition home or self-care (01) ==
LOC: HO.HMCH 16:43
PROVIDERS: PCP Internal Medicine; Visit Provider Internal Medicine
DX: S81.802A Unspecified open wound, left lower leg, initial encounter (principal)

== ENCOUNTER → 2024-05-16 16:43 | Outpatient (BNVA) | payer MEDICARE, SELFPAY | PROVIDERS: PCP Internal Medicine; Visit Provider Internal Medicine | DX: S81.802A Unspecified open wound, left lower leg, initial encounter (principal); X58.XXXA Exposure to other specified factors, initial encounter; Y93.9 Activity, unspecified; Y92.9 Unspecified place or not applicable; Y99.9 Unspecified external cause status | CPT/HCPCS: 96127 ==

== ENCOUNTER → 2024-07-27 23:59 | Outpatient (BNV) | payer MEDICARE, SELFPAY ==
--- NOTE | 2024-07-27 16:46 | A.OFFVIS_ITS ---
Intake Visit Reasons: Remote Device Check- [facility] Allergies No Known Allergies [No Known Allergies*] Allergy (Verified 05/16/24 17:28) PFSH Medical History Depression Multifactorial dementia [place] (hard of hearing) Nail atrophy Cardiac pacemaker in situ Memory impairment Sick sinus syndrome Squamous cell carcinoma of left lower leg (~02/2017) Breast cancer, right breast Basal cell carcinoma of right forearm (~2004) Anxiety Osteoarthritis of left hip Insufficiency fracture of right femur Obturator hernia with gangrene Vitamin D deficiency Impaired fasting glucose Pure hypercholesterolemia Essential hypertension, benign Forgetfulness Paroxysmal atrial fibrillation Sinus pause HTN (hypertension) Surgical History H/O colonoscopy Status post hip surgery (~05/14/16) Hx of squamous cell carcinoma excision (~02/2017) Hx of basal cell carcinoma excision (~2004) History of hip surgery (~06/2013) Hx of excision of mass Hx of hernia repair History of lumpectomy of right breast (~08/2003) History of permanent cardiac pacemaker placement Family History Father No problems noted. Mother CVD (cardiovascular disease) CHF (congestive heart failure) Hypertension Brother Bone cancer Diabetes Social History Housing: Assisted Living Facility Are you a primary home health care respiratory therapist to a significant other at home: No Do you presently have visiting nurse or other home services: No Alcohol intake: current Alcohol intake frequency: holidays/special occasions only Alcohol type: wine Patient Tobacco Use Status: Never used Tobacco e-Cigarette/Vaping Use: Never Used Second Hand Smoke Exposure: No service: No Current occupational status: retired Cognitive needs: Yes (memory impairment) Hearing needs: Yes Vision needs: No Office Procedures Cardiac Device Check Cardiac Device Check Details: Remote pacemaker report generated 07/27/2024. Pacemaker function is adequate. No episodes of atrial fibrillation noted. [id number] Cardiac Device Interrogation, pacemaker Procedure code (CPT) selection complete Assessment & Plan Assessment & Plan (1) Cardiac pacemaker in situ: Code(s): Z95.0 - Presence of cardiac pacemaker Category: Medical Plan: See above Coding Level of Care Code Procedure Only Diagnoses Cardiac pacemaker in situ Z95.0 CPT Codes Cardiac Device Check - Cardiac Device 12: 10621-Jbekkt Cardiac Device Interrogation, pacemaker ([id number])
== END ==
PROVIDERS: PCP Internal Medicine; Visit Provider Internal Medicine Cardiovascular Disease
DX: Z45.018 Encounter for adjustment and management of other part of cardiac pacemaker (principal)
CPT/HCPCS: 93294

== ENCOUNTER 2024-09-07 12:29 | Outpatient (AMB) | payer MEDICARE, SELFPAY ==
[2024-09-07 12:41] VITALS: BP 124/70; PULSE 60; BMI 20.1
--- NOTE | 2024-09-07 12:41 | A.OFFVIS_ITS ---
Vital Signs 09/07/24 12:41 Height 5 ft 4 in Weight 117 lb BMI 20.1 BP 124/70 Blood Pressure Location Lt brachial Position Sitting Pulse 60 Intake Visit Reasons: 1 yr f/up pacer ck w/ NS Intake Note: 1 year follow-up with ekg and [facility] check feeling good Dispatcher Ship Pilot Required: No Allergies No Known Allergies (No Known Allergies*) Allergy (Verified 05/16/24 17:28) Medication List - Last Reconciled 09/07/24 by Caesar Lay MD acetaminophen ER (Tylenol Arthritis Pain) Take 2 tablets in AM and 1 tablet in the evening orally for hip pain 30 days apixaban 2.5 mg PO BID 90 days cholecalciferol (vitamin D3) 50 mcg PO Q2D 28 days diltiazem HCl CD 120 mg PO DAILY donepezil 10 mg PO BEDTIME escitalopram oxalate 20 mg PO DAILY hydrochlorothiazide 25 mg PO DAILY 90 days metoprolol succinate ER 100 mg PO BID 90 days HPI Comments Details: Kimberly comes for follow-up, accompanied by her daughter. Lives in his assisted living facility at this point in time. No reported cardiac symptoms at this point time. Has left lower leg swelling around the calf after recent treatment for nonhealing wound that required compression stocking. She has no orthopnea, PND, worsening shortness of breath. No exertional chest pain. No lightheadedness, syncope. 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[place] (hard of hearing) Nail atrophy Cardiac pacemaker in situ Memory impairment Sick sinus syndrome Squamous cell carcinoma of left lower leg (~02/2017) Breast cancer, right breast Basal cell carcinoma of right forearm (~2004) Anxiety Osteoarthritis of left hip Insufficiency fracture of right femur Obturator hernia with gangrene Vitamin D deficiency Impaired fasting glucose Pure hypercholesterolemia Essential hypertension, benign Forgetfulness Sinus pause HTN (hypertension) Surgical History H/O colonoscopy Status post hip surgery (~05/14/16) Hx of squamous cell carcinoma excision (~02/2017) Hx of basal cell carcinoma excision (~2004) History of hip surgery (~06/2013) Hx of excision of mass Hx of hernia repair History of lumpectomy of right breast (~08/2003) History of permanent cardiac pacemaker placement Family History Father No problems noted. Mother CVD (cardiovascular disease) CHF (congestive heart failure) Hypertension Brother Bone cancer Diabetes Social History Housing: Assisted Living Facility Are you a primary disabilities caregiver to a significant other at home: No Do you presently have visiting nurse or other home services: No Alcohol intake: current Alcohol intake frequency: holidays/special occasions only Alcohol type: wine Patient Tobacco Use Status: Never used Tobacco e-Cigarette/Vaping Use: Never Used Second Hand Smoke Exposure: No service: No Current occupational status: retired Cognitive needs: Yes (memory impairment) Hearing needs: Yes Vision needs: No Review of Systems Const Denies chills, Denies fatigue, Denies fever(s), Denies frequent falls, Denies weakness, Denies weight gain and Denies weight loss ENT Denies dizziness Card Denies chest pain, Denies leg edema, Denies lightheadedness, Denies palpitations, Denies dyspnea, Denies dyspnea on exertion, Denies orthopnea and Denies other (loss of consciousness) Resp Denies cough, Denies dyspnea and Denies dyspnea on exertion GI Denies hematochezia and Denies change in stool character Musc Denies abnormal gait, Denies muscle weakness, Denies numbness, Denies radiating pain into limb and Denies tingling Neuro Denies abnormal gait, Denies dizziness, Denies frequent falls, Denies numbness, Denies tingling and Denies weakness Endo Denies fatigue and Denies palpitations Physical Exam Vital Signs: BMI result Body Mass Index 20.1 Const General: cooperative, comfortable, no acute distress, alert and awake Nutritional Appearance: thin and other (Frail elderly woman) Orientation/consciousness: patient oriented x3 Limitations: ambulation with cane Neck Neck: Yes trachea midline, Yes supple and Yes no JVD Resp Effort & Inspection: normal respiratory effort Auscultation: clear to auscultation bilaterally Cardio Jugular venous distension: no JVD Palpation: normal PMI Rate: regular rate Rhythm: regular rhythm Heart sounds: S1 normal heart sound present, S2 normal heart sound present, no click, no gallops, Murmur heart sound present systolic and no rubs GI Auscultation: normal bowel sounds Skin General skin exam: no rashes or lesions noted and ecchymosis Neuro General: patient oriented x3 and no focal motor deficits Extrem General: Yes no clubbing, cyanosis or edema Office Procedures Cardiac Device Check Cardiac Device Check Details: Dual-chamber [place] [facility] pacemaker in place. Noted to be in AV paced rhythm more than 99% of the time. Last episode of atrial fibrillation was yesterday for 22 seconds. It was reprogrammed to DDDR mode. Atrial pacing thresholds excellent and reprogrammed to enhance battery life. Ventricular pacing thresholds are still elevated and reprogrammed to enhance battery life. Atrial ventricular sensing is adequate. Pacing lead impedance is stable. Battery life is at 1.8 years [id number] Cardiac Device Check, pacemaker dual lead Procedure code (CPT) selection complete EKG Details: EKG shows AV dual paced rhythm 11517-[id number], Complete Assessment & Plan Assessment & Plan (1) Paroxysmal atrial fibrillation: Comment: hx of post of Afib. Recent holter confirms presence of asymptomatic paroxysmal atrial fibrillation. She was started on Metoprolol for rate control ( after PPM placed) and Eliquis for anticoagulation. They are having issues with high copay on Eliquis and information given for reaching out to maker. No reports of bleeding. Pulse regular on exam. PPM interrogation today shows no AF since placement. She did have MRI today as part of eval by neurology for her forgetful ness and possible prior CVA. Code(s): I48.0 - Paroxysmal atrial fibrillation Category: Medical Plan: Paroxysmal atrial fibrillation with no symptoms and no change in clinical status between persistent and paroxysmal atrial fibrillation. No change in therapy. Avoid antiarrhythmic drug therapy at this point time given multiple medications. Continue low-dose Eliquis therapy based on renally adjusted dose. Continue monitor renal function every 3 months. Avoidance of stimulants was discussed. Continue Cardizem therapy. (2) Cardiac pacemaker in situ: Code(s): Z95.0 - Presence of cardiac pacemaker Category: Medical Plan: Cardiac pacemaker in-situ, working well. Reprogrammed for adequate function. Will follow remotely every 3 months. Follow up in the clinic in 1 year's time, sooner p.r.n.. Thank you for allowing me to partake in her care Coding Level of Care Code Est Pt Level 4 (42236) Complex EM visit Add On G2211 Diagnoses Paroxysmal atrial fibrillation I48.0 Cardiac pacemaker in situ Z95.0 CPT Codes Cardiac Device Check - Cardiac Device 2: 29767-SE Cardiac Device Check, pacemaker dual lead ([id number]) EKG - CPT: 11203-Fkdsqqymwrkhmrtal, Complete ([id number])
--- OUTSIDE RECORDS SUMMARY | 2024-09-07 12:55 | XMS_ITS | Patient Health Record ---
Author Organization [facility] Address [address] [facility] [address] [place] [address] Care Team Providers Care Supervisor [employer] Name Role Phone Gabo RICHARDS, [place] Primary Care Provider Rosalba Tomas Unavailable [phone] Dillan Bowman Unavailable [phone] Sony Flores Unavailable [phone] Allergies No Known Allergies Reason For Referral No Information Medications Medication SIG (Take, Route, Frequency, Duration) Notes Start Date End Date Status Vitamin D3 50 MCG (1999) 1 capsule Or ally Every 2 Days Active Escitalopram Oxalate 20 MG 1 tablet Oral ly Once a day Active hydroCHLOROthiazide 25 MG 1 tablet in th e morning Orally Once a day Active Apixaban 2.5 MG as directed Orally Twice a Day Active Tylenol 8 Hour Arthritis Tamiko n 650 MG 2 Tablets in AM and 2 Tablet in PM Orally Twice a Day Active Metoprolol Succinate 100 MG 1 capsule Or ally Twice a day Active Donepezil HCl 5 MG 1 tablet at bedtime Orally Once a day Active Problems Problem Type SNOMED Code ICD Code Onset Dates Problem Status W/U Status Risk Notes Problem Basal cell carcinoma of upper extremity (187996528) Basal cell carcinoma of skin of right upper limb, including shoulder (C44.612) Active confirmed Problem Squamous cell carcinoma of skin of lower extremity (885444823) 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, including hip (C44.729) Active confirmed Problem Hyperlipidemia (99107853) Hyperlipidemia, unspecified (E78.5) Active confirmed Problem Essential hypertension (18225400) Essential (primary) hypertension (I10) Active confirmed Problem Atrial fibrillation (53965015) Unspecified atrial fibrillation (I48.91) Active confirmed Problem Sick sinus syndrome (01088920) Sick sinus syndrome (I49.5) Active confirmed Problem 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) Active confirmed Problem Open wound of left lower leg (disorder) (02118116727482680) Unspecified open wound, left lower leg, initial encounter (S81.802A) Active confirmed Problem Open wound of left lower leg (23443157570972069) Unspecified open wound, left lower leg, subsequent encounter (S81.802D) Active confirmed Problem Vitamin D deficiency (84973030) Vitamin D deficiency (E55.9) Active confirmed Problem Anxiety (08122237) Anxiety (F41.9) Active confi rmed Problem Hypercholesterolemia (67828789) Hypercholesterolemia (E78.00) Active confirmed Problem Osteoarthritis (332628645) Osteoarthritis (M19.90) Active confirmed Problem Breast cancer (980041190) Breast cancer (C50.919) Active confirmed Problem Dementia (18843687) Dementia (F03.90) Active co nfirmed Vital Signs Heart Rate 66 /min 09/07/2024 Temperature 98.4 degrees Fahrenheit 09/07/2024 Respiratory Rate 16 /min 09/07/2024 Blood pressure diastolic 60 mm Hg 09/07/2024 Oximetry 97 % 09/07/2024 Height-cm 162.56 cm 09/07/2024 Weight-kg 49.9 kg 09/07/2024 Height 64 in 09/07/2024 Blood pressure systolic 144 mm Hg 09/07/2024 Weight 110 lbs 09/07/2024 BMI 18.88 kg/m2 09/07/2024 Encounters Encounter Location Date Provider Diagnosis [facility] [address] [place] [address] 05/23/2024 Sony Flores Unspecified open wound, left lower leg, initial encounter S81.802A ; Essential (primary) hypertension I10 ; Hyperlipidemia, unspecified E78.5 and Unspecified atrial fibrillation I48.91 [facility] [address] [facility] [address] [place] [address] 06/07/2024 Rosalba Lay Unspecified open wound, left lower leg, initial encounter S81.802A ; Non-pressure chronic ulcer of other part of left lower leg with necrosis of muscle L97.823 ; Essential (primary) hypertension I10 ; Hyperlipidemia, unspecified E78.5 and Unspecified atrial fibrillation I48.91 [facility] [address] [address] 06/14/2024 Rosalbajosiah Lay Essential (primary) hypertension I10 ; Non-pressure chronic ulcer of other part of left lower leg with necrosis of muscle L97.823 ; Hyperlipidemia, unspecified E78.5 ; Unspecified atrial fibrillation I48.91 and Unspecified open wound, left lower leg, subsequent encounter S81.802D [facility] [address] [address] 06/21/2024 Rosalbajosiah Anguloett Essential (primary) hypertension I10 ; Non-pressure chronic ulcer of other part of left lower leg with necrosis of muscle L97.823 ; Hyperlipidemia, unspecified E78.5 ; Unspecified atrial fibrillation I48.91 and Unspecified open wound, left lower leg, subsequent encounter S81.802D [facility] [address] [address] 06/29/2024 Rosalbajosiah Anguloett Essential (primary) hypertension I10 ; Non-pressure chronic ulcer of other part of left lower leg with necrosis of muscle L97.823 ; Hyperlipidemia, unspecified E78.5 ; Unspecified atrial fibrillation I48.91 and Unspecified open wound, left lower leg, subsequent encounter S81.802D [facility] [address] [address] 07/06/2024 Rosalba Anguloett Essential (primary) hypertension I10 ; Non-pressure chronic ulcer of other part of left lower leg with necrosis of muscle L97.823 ; Hyperlipidemia, unspecified E78.5 ; Unspecified atrial fibrillation I48.91 and Unspecified open wound, left lower leg, subsequent encounter S81.802D [facility] [address] [address] 07/13/2024 Rosalba Darlington Essential (primary) hypertension I10 ; Non-pressure chronic ulcer of other part of left lower leg with necrosis of muscle L97.823 ; Hyperlipidemia, unspecified E78.5 ; Unspecified atrial fibrillation I48.91 and Unspecified open wound, left lower leg, subsequent encounter S81.802D [facility] [address] [address] 07/20/2024 Rosalba Lay Essential (primary) hypertension I10 ; Non-pressure chronic ulcer of other part of left lower leg with necrosis of muscle L97.823 ; Hyperlipidemia, unspecified E78.5 ; Unspecified atrial fibrillation I48.91 and Unspecified open wound, left lower leg, subsequent encounter S81.802D [facility] [address] [address] 07/27/2024 Rosalba Lay Essential (primary) hypertension I10 ; Non-pressure chronic ulcer of other part of left lower leg with necrosis of muscle L97.823 ; Hyperlipidemia, unspecified E78.5 ; Unspecified atrial fibrillation I48.91 and Unspecified open wound, left lower leg, subsequent encounter S81.802D [facility] [address] [address] 08/11/2024 Sony Flores Essential (primary) hypertension I10 ; Non-pressure chronic ulcer of other part of left lower leg with necrosis of muscle L97.823 ; Hyperlipidemia, unspecified E78.5 ; Unspecified atrial fibrillation I48.91 and Unspecified open wound, left lower leg, subsequent encounter S81.802D [facility] [address] [address] 08/24/2024 Rosalba Lay Essential (primary) hypertension I10 ; Non-pressure chronic ulcer of other part of left lower leg with necrosis of muscle L97.823 ; Hyperlipidemia, unspecified E78.5 ; Unspecified atrial fibrillation I48.91 and Unspecified open wound, left lower leg, subsequent encounter S81.802D [facility] [address] [address] 09/07/2024 Rosalba Lay Essential (primary) hypertension I10 ; Non-pressure chronic ulcer of other part of left lower leg with necrosis of muscle L97.823 ; Hyperlipidemia, unspecified E78.5 ; Unspecified atrial fibrillation I48.91 and Unspecified open wound, left lower leg, subsequent encounter S81.802D [facility] [address] [address] 05/23/2024 Sony Flores [facility] [address] [place] [address] 06/07/2024 Sony Flores [facility] [address] [place] [address] 06/14/2024 Sony Flores [facility] [address] [place] [address] 07/18/2024 Rosalba Lay [facility] [address] [facility] [address] [place] [address] 07/29/2024 Rosalba Lay Assessments Encounter Date Diagnosis (ICD Code) Assessment Notes Treatment Notes Treatment Clinical Notes Section Notes 05/23/2024 Essential (primary) hypertension (ICD-10 - I10) 05/23/2024 Unspecified open wound, left lower leg, initial encounter (ICD-10 - S81.802A) 06/07/2024 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 We removed the dressing and examined the wound site. The wound has significant thick devitalized tissue. I discussed the indication for debridement and she and her son are agreeable. We applied an additional application of lidocaine and she tolerated the procedure well. I was able to remove most of the devitalized tissue and there is exposed granular tissue with tendon striations present. There is mild periwound erythema not accompanied by warmth, edema, streaking or additional symptoms of infection. She has an easily palpable R dorsalis pedal pulse while her L is still palpable but with less strength. I cleaned the wound with wound cleanser and nursing then applied zinc to periwound, transfer ready HFB fb DCD. Given that this is her third occurence of a BLE wound within 1 year, we discussed her ROGER and TBI results and she and her son are agreeable to a vascular referral for additional workup and/or recommendations. We will continue VNA services, now applying zinc to periwound, transfer ready HFB fb DCD, changing two times weekly. She will return in one week for a follow up appointment to allow for weekly debridements to remove the bioburden and devitalized tissue in attempt to keep the bacterial load down. Tubi on in AM and off @ HS. Elevate as tolerated. I Rosalba Lay MSN, AGPCNP- examined, evaluated and treated the patient. Dr. Ellyn Castaneda was available for any question or concerns that I may have had. 06/07/2024 Unspecified open wound, left lower leg, initial encounter (ICD-10 - S81.802A) 06/14/2024 Essential (primary) hypertension (ICD-10 - I10) 06/21/2024 Essential (primary) hypertension (ICD-10 - I10) 06/29/2024 Essential (primary) hypertension (ICD-10 - I10) 07/06/2024 Essential (primary) hypertension (ICD-10 - I10) 07/13/2024 Essential (primary) hypertension (ICD-10 - I10) 07/20/2024 Essential (primary) hypertension (ICD-10 - I10) 07/27/2024 Essential (primary) hypertension (ICD-10 - I10) 08/11/2024 Essential (primary) hypertension (ICD-10 - I10) 08/24/2024 Essential (primary) hypertension (ICD-10 - I10) 09/07/2024 Essential (primary) hypertension (ICD-10 - I10) 08/24/2024 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 We removed the dressing and examined the wound site. The wound continues to slowly improve and is measuring smaller. I discussed the indication for debridement to remove devitalized tissue and biofilm and apply silver nitrate to the thickened edges and she and her daughter are agreeable. She tolerated the procedures well after an application of lidocaine and there were no findings to indicate any acute underlying infectious process. I cleaned the wound with wound cleanser and nursing then applied zinc to periwound, puracol ag fb DCD. DENICE will come to change her dressing Thursday and Thursday with zinc to periwound, puracol ag f/b DCD. Due to the concerns with the improper application of the tubi rda, leaving in place 08/09, we discussed the risks vs benefits of compression. Her daughter agreed that the risk outweighs the benefit while understanding that compression, elevation, and wound care will heal this wound. She will return in two weeks for a follow-up appointment. We discussed stagnant wound healing with multiple treatment modalities trialed; we applied for preapproval of a skin substitute to aid in healing, but it was not approved. Patient and daughter agree with plan of care and their questions have been answered to their satisfaction. Elevate as tolerated. I spent a total of 30 minutes on this visit, providing direct and indirect care of this patient reviewing records, gathering H&P, counseling the patient on treatment choices, disease process, expected outcomes, formulating plan, evaluation and treatment, education and documentation of findings I Rosalba Lay MSN, AGPCNP-BC examined, evaluated and treated the patient. Dr. Ellyn Castaneda was available for any question or concerns that I may have had. 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 We removed the dressing and examined the wound site. The wound is nicely resolved with epithelial tissue. I encouraged elevation to continue and do not scratch at wound site, as her daughter is concerned she may do that. Clean gently and pat dry in the shower, no scrubbing at site. She does not require a follow up at this time but may follow up with new or reopened areas. Patient, son, and daughter all agree with plan of care. I spent a total of 20 minutes on this visit, providing direct and indirect care of this patient reviewing records, gathering H&P, counseling the patient on treatment choices, disease process, expected outcomes, formulating plan, evaluation and treatment, education and documentation of findings I Rosalba Lay MSN, AGNP-BC examined, evaluated and treated the patient. Dr. Ellyn Castaneda was available for any question or concerns that I may have had. 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 Vital signs stable and afebrile. Nursing removed the dressing and I examined the wound site. There is no s/s of underlying infectious property noted at todays visit Wound noted to: left lower leg wound is stable at todays visit based on assessment and measurements from last visit. The periwound is fibrinous and wound bed is noted with granular tissue. I discussed the indication for debridement, and patient and daughter are agreeable. I then proceded to debride to remove devitalized tissue as outline above. She tolerated procedure well. Nursing cleansed the wound with salline, then applied zinc to periwound, puracol ag fb DCD. VNA continue to perform dressing changes on Thursday and Thursday with zinc to periwound, puracol ag f/b DCD. previous concerns with patients primary wound care provider with the improper application of the tubi rda, leaving in place 08/09, with previously discussed the risks vs benefits of compression. Her daughter at that time agreed that the risk outweighs the benefit while understanding that compression, elevation, and wound care will heal this wound. continue with every two weeks for a follow-up appointment. her daughter lives 3 hours away I Sony Flores MSN, LAB TECHNOLOGIST, SENIOR GAMEMASTER-C examined, evaluated and treated the patient. Dr. Ellyn Castaneda was available for any question or concerns that I may have had. 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 We removed the dressing and examined the wound site. The wound continues to slowly improve and is measuring smaller. I discussed the indication for debridement to remove devitalized tissue and biofilm and apply silver nitrate to the thickened edges and she and her daughter are agreeable. She tolerated the procedures well after an application of lidocaine and there were no findings to indicate any acute underlying infectious process. I cleaned the wound with wound cleanser and nursing then applied zinc to periwound, puracol ag fb DCD. VNA will come to change her dressing Thursday and Thursday with zinc to periwound, puracol ag f/b DCD. Due to the concerns with the improper application of the tubi rda, leaving in place 08/09, we discussed the risks vs benefits of compression. Her daughter agreed that the risk outweighs the benefit while understanding that compression, elevation, and wound care will heal this wound. She will return in two weeks for a follow-up appointment. We discussed stagnant wound healing with multiple treatment modalities trialed; we applied for preapproval of a skin substitute to aid in healing, but it was not approved. Patient and son agree with plan of care and their questions have been answered to their satisfaction. Elevate as tolerated. I spent a total of 32 minutes on this visit, providing direct and indirect care of this patient reviewing records, gathering H&P, counseling the patient on treatment choices, disease process, expected outcomes, formulating plan, evaluation and treatment, education and documentation of findings I Rosalba Lay MSN, [facility]- examined, evaluated and treated the patient. Dr. Ellyn Castaneda was available for any question or concerns that I may have had. 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 We removed the dressing and examined the wound site. The wound continues to slowly improve and is measuring smaller. I discussed the indication for debridement to remove devitalized tissue and biofilm and apply silver nitrate to the thickened edges and she and her son are agreeable. She tolerated the procedures well after an application of lidocaine and there were no findings to indicate any acute underlying infectious process. I cleaned the wound with wound cleanser and nursing then applied zinc to periwound, puracol ag fb DCD. Lastly, tubigrip was applied toes to below the knee for compression. DENICE will come to change her dressing Thursday and Thursday with zinc to periwound, puracol ag f/b DCD and tubigrip. her son will stop by daily or at least every other day to monitor her leg for swelling. She will return in one about week for a follow-up appointment to allow for weekly debridements to remove the bioburden and devitalized tissue in attempt to keep the bacterial load down. We discussed stagnant wound healing with multiple treatment modalities trialed; we applied for preapproval of a skin substitute to aid in healing, but it was not approved. Patient and son agree with plan of care and their questions have been answered to their satisfaction. Elevate as tolerated. I spent a total of 32 minutes on this visit, providing direct and indirect care of this patient reviewing records, gathering H&P, counseling the patient on treatment choices, disease process, expected outcomes, formulating plan, evaluation and treatment, education and documentation of findings I Rosalba Lay MSN, [facility]- examined, evaluated and treated the patient. Dr. Ellyn Castaneda was available for any question or concerns that I may have had. 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 We removed the dressing and examined the wound site. The wound continues to slowly improve and is measuring smaller. I discussed the indication for debridement to remove devitalized tissue and biofilm and apply silver nitrate to the thickened edges and she and her son are agreeable. She tolerated the procedures well after an application of lidocaine and there were no findings to indicate any acute underlying infectious process. I cleaned the wound with wound cleanser and nursing then applied zinc to periwound, puracol ag fb DCD. Lastly, a coflex TLC was applied for compression. She will leave the coflex wrap in place all week. She and her son were educated on sxs infection and to leave the coflex wrap in place. She will return in one about week for a follow-up appointment to allow for weekly debridements to remove the bioburden and devitalized tissue in attempt to keep the bacterial load down. We discussed stagnant wound healing with multiple treatment modalities trialed; we applied for preapproval of a skin substitute to aid in healing, but it was not approved. Patient and son agree with plan of care and their questions have been answered to their satisfaction. Elevate as tolerated. I spent a total of 34 minutes on this visit, providing direct and indirect care of this patient reviewing records, gathering H&P, counseling the patient on treatment choices, disease process, expected outcomes, formulating plan, evaluation and treatment, education and documentation of findings I Rosalba Lay MSN, [facility]-BC examined, evaluated and treated the patient. Dr. Ellyn Castaneda was available for any question or concerns that I may have had. 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 We removed the dressing and examined the wound site. The wound continues to slowly improve and is measuring smaller. I discussed the indication for debridement to remove devitalized tissue and biofilm and she and her son are agreeable. She tolerated the procedure well after an application of lidocaine and there were no findings to indicate any acute underlying infectious process. I cleaned the wound with wound cleanser and nursing then applied zinc to periwound, puracol ag fb DCD. Lastly, a coflex TLC was applied for compression. She will leave the coflex wrap in place all week. She and her son were educated on sxs infection and to leave the coflex wrap in place. She will return in one about week for a follow-up appointment to allow for weekly debridements to remove the bioburden and devitalized tissue in attempt to keep the bacterial load down. We discussed stagnant wound healing with multiple treatment modalities trialed; we applied for preapproval of a skin substitute to aid in healing, but it was not approved. Patient and son agree with plan of care and their questions have been answered to their satisfaction. Elevate as tolerated. I spent a total of 32 minutes on this visit, providing direct and indirect care of this patient reviewing records, gathering H&P, counseling the patient on treatment choices, disease process, expected outcomes, formulating plan, evaluation and treatment, education and documentation of findings I Rosalba Lay MSN, [facility]- examined, evaluated and treated the patient. Dr. Ellyn Castaneda was available for any question or concerns that I may have had. 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 We removed the dressing and examined the wound site. The wound is measuring slightly smaller, but overall wound healing appears stagnant. I discussed the indication for debridement and she and her son are agreeable. She tolerated the procedure well after an application of lidocaine and there were no findings to indicate any acute underlying infectious process. I cleaned the wound with wound cleanser and nursing then applied zinc to periwound,adaptic fb aquacel ag fb DCD. Lastly, a tubi rda was applied for compression. We will continue VNA services, now applying zinc to periwound, adaptic, aquacel ag fb DCD, changing two times weekly, tubi toes to below the knee, on in AM and off @ HS if able to take on and off on her own. She will return in one about week for a follow-up appointment to allow for weekly debridements to remove the bioburden and devitalized tissue in attempt to keep the bacterial load down. Tubi on in AM and off @ HS. She has an initial vascular appointment in 2 weeks. We discussed stagnant wound healing with multiple treatment modalities trialed. Patient and son are agreeable to the application of a skin substitute if insurance approves. Patient and son agree with plan of care and their questions have been answered to their satisfaction. Elevate as tolerated. I Rosalba Lay MSN, AGPCNP- examined, evaluated and treated the patient. Dr. Ellyn Castaneda was available for any question or concerns that I may have had. 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 We removed the dressing and examined the wound site. The wound is measuring slightly smaller and has more granular tissue today, but some thickened and rolled edges. I discussed the indication for debridement and silver nitrate and she and her son are agreeable. She tolerated the procedure well after an application of lidocaine and there were no findings to indicate any acute underlying infectious process. I cleaned the wound with wound cleanser and nursing then applied zinc to periwound, puracol ag fb DCD. Lastly, a tubi rda was applied for compression. We will continue VNA services, now applying zinc to periwound, puracol ag fb DCD, changing two times weekly, tubi toes to below the knee, on in AM and off @ HS if able to take on and off on her own. She will return in one about week for a follow-up appointment to allow for weekly debridements to remove the bioburden and devitalized tissue in attempt to keep the bacterial load down. Tubi on in AM and off @ HS. She has an initial vascular appointment today. We discussed stagnant wound healing with multiple treatment modalities trialed; we applied for preapproval of a skin substitute to aid in healing, but it was not approved. Patient and son agree with plan of care and their questions have been answered to their satisfaction. Elevate as tolerated. I spent a total of 30 minutes on this visit, providing direct and indirect care of this patient reviewing records, gathering H&P, counseling the patient on treatment choices, disease process, expected outcomes, formulating plan, evaluation and treatment, education and documentation of findings I Rosalba Lay MSN, [facility]- examined, evaluated and treated the patient. Dr. Ellyn Castaneda was available for any question or concerns that I may have had. 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 We removed the dressing and examined the wound site. The wound did have Aquacel in place and was sticking as was last week. The wound is improving. I discussed the indication for debridement and she and her son are agreeable. She tolerated the procedure well after an application of lidocaine and there were no findings to indicate any acute underlying infectious process. I cleaned the wound with wound cleanser and nursing then applied zinc to periwound, transfer ready HFB fb DCD. We will continue VNA services, now applying zinc to periwound, transfer ready HFB fb DCD, changing two times weekly. She will return in one week for a follow-up appointment to allow for weekly debridements to remove the bioburden and devitalized tissue in attempt to keep the bacterial load down. Tubi on in AM and off @ HS. Patient and son agree with plan of care and their questions have been answered to their satisfaction. Vascular referral pending. Elevate as tolerated. I Rosalba Lay MSN, [facility]- examined, evaluated and treated the patient. Dr. Ellyn Castaneda was available for any question or concerns that I may have had. 06/14/2024 Hyperlipidemia, unspecified (ICD-10 - E78.5) 06/07/2024 Essential (primary) hypertension (ICD-10 - I10) 06/07/2024 Hyperlipidemia, unspecified (ICD-10 - E78.5) 05/23/2024 Unspecified atrial fibrillation (ICD-10 - I48.91) 06/14/2024 Unspecified atrial fibrillation (ICD-10 - I48.91) 06/21/2024 Hyperlipidemia, unspecified (ICD-10 - E78.5) 06/29/2024 Hyperlipidemia, unspecified (ICD-10 - E78.5) 07/06/2024 Hyperlipidemia, unspecified (ICD-10 - E78.5) 07/13/2024 Hyperlipidemia, unspecified (ICD-10 - E78.5) 07/20/2024 Hyperlipidemia, unspecified (ICD-10 - E78.5) 07/27/2024 Hyperlipidemia, unspecified (ICD-10 - E78.5) 08/11/2024 Hyperlipidemia, unspecified (ICD-10 - E78.5) 08/24/2024 Hyperlipidemia, unspecified (ICD-10 - E78.5) 09/07/2024 Hyperlipidemia, unspecified (ICD-10 - E78.5) 09/07/2024 Unspecified atrial fibrillation (ICD-10 - I48.91) 08/24/2024 Unspecified atrial fibrillation (ICD-10 - I48.91) 08/11/2024 Unspecified atrial fibrillation (ICD-10 - I48.91) 07/20/2024 Unspecified atrial fibrillation (ICD-10 - I48.91) 07/27/2024 Unspecified atrial fibrillation (ICD-10 - I48.91) 06/29/2024 Unspecified atrial fibrillation (ICD-10 - I48.91) 07/06/2024 Unspecified atrial fibrillation (ICD-10 - I48.91) 07/13/2024 Unspecified atrial fibrillation (ICD-10 - I48.91) 06/21/2024 Unspecified atrial fibrillation (ICD-10 - I48.91) 06/14/2024 Unspecified open wound, left lower leg, subsequent encounter (ICD-10 - S81.802D) 06/07/2024 Unspecified atrial fibrillation (ICD-10 - I48.91) 07/13/2024 Unspecified open wound, left lower leg, subsequent encounter (ICD-10 - S81.802D) 07/06/2024 Unspecified open wound, left lower leg, subsequent encounter (ICD-10 - S81.802D) 06/21/2024 Unspecified open wound, left lower leg, subsequent encounter (ICD-10 - S81.802D) 06/29/2024 Unspecified open wound, left lower leg, subsequent encounter (ICD-10 - S81.802D) 07/20/2024 Unspecified open wound, left lower leg, subsequent encounter (ICD-10 - S81.802D) 08/11/2024 Unspecified open wound, left lower leg, subsequent encounter (ICD-10 - S81.802D) 07/27/2024 Unspecified open wound, left lower leg, subsequent encounter (ICD-10 - S81.802D) 08/24/2024 Unspecified open wound, left lower leg, subsequent encounter (ICD-10 - S81.802D) 09/07/2024 Unspecified open wound, left lower leg, subsequent encounter (ICD-10 - S81.802D) 05/23/2024 Brandy Harris is an 88 [id number] that presents today for initial evaluation and treatment of wound to left medial lower leg Past medical history is significant for atrial fibrillation, HTN, HLD, dementia The patient currently lives at an assisted living facility due to dementia. Daughter reports that her mother went to nurses station and asked them for a Band-Aid and this is when the wound was discovered. She then went to her primary Care, and was started on doxycycline in which she has completed her course. Current wound treatment with triad and Neosporin by her daughter. On assessment today, Kimberly is noted to be afebrile and other VS were within normal limits. The patient denies pain or discomfort related to wounds. We removed dressings, with no suggestive s/s of an underlying infectious process. There was no foul odor noted. Her wound is located on her left medial lower leg. After examination, I discussed the indication of debridement and they were agreeable. I then performed debridement to remove devitalized tissues as outlined. She tolerated procedures well. The wound sites were then cleansed with saline and thereafter, I applied Aquacel onto the wound sites and zinc to jose wound areas. The sites were then covered with a dry dressing. Patient was educated on protecting wound site Office is reaching out to the visiting nurses to assist with performing the above dressing changes every other day need ROGER done at next visit S/S of infection reviewed and when to go to ED Patient will have FU in one week A total 40 of minutes was spent on this visit (face to face and non face to face) documenting HPI and performing physical exam, reviewing previous notes and testing, reviewing and adjusting treatment plan, counseling the patient on treatment choices, disease process, expected outcomes, and documenting the findings in the note. I, Sony Flores, MSN, LAB TECHNOLOGIST, SENIOR GAMEMASTER-C, examined, evaluated, and treated the patient. Dr. Ellyn Castaneda was available for any questions or concerns that I may have had. 06/07/2024 Other 06/14/2024 Other I, Demetrio Castaneda MD confirm that Rosalba RILEY, [facility]-, understands and adheres to the guidelines of the established clinical protocols in the office. I confirm the above care provided was rendered under my general supervision as initially planned and subsequently discussed and supervised by me. 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
== END 2024-09-07 13:17 | disposition home or self-care (01) ==
LOC: HO.HCS 12:30
PROVIDERS: PCP Internal Medicine; Visit Provider Internal Medicine Cardiovascular Disease
DX: I48.0 Paroxysmal atrial fibrillation (principal); Z95.0 Presence of cardiac pacemaker; R94.31 Abnormal electrocardiogram [ECG] [EKG]
CPT/HCPCS: 93010; 93280; 99214; G2211